=== PATIENT | female | born 1980 | race Caucasian/White ===

== ENCOUNTER 2016-03-13 12:02 | Emergency (ER) | payer OTHER ==
[~2016-03-13 12:02] MED LIST: AFRI0.65; AUGM875T27 PO; BACIDCA PO; CALC500T36 PO; CELL500T PO; Calcium PO; FLAG500T PO; HYDROXYCHLOROQUINE PO; KEPP1000 PO; KEPPRA PO; MICO2CRE39 PV; MULTCAP PO; MULTTAB4 PO; PERC2.5T PO; PERC5TAB6 PO; PERC7.5T12 PO; POTA1TAB14 PO; PRED10TA PO; PRED1TA PO; PRED5TA PO; TEGR200T PO; VICOBULK PO; [UNRECOGNIZED DRUG - CODE] PO
--- NOTE | 2016-03-13 13:53 | EDDOCDS ---
Nurse's Notes [facility] Name: Carina Mendez Age: 35 yrs Sex: Female : 1980 Arrival Date: 03/13/2016 Time: 12:02 Bed Triage 1 Private MD: [facility] Diagnosis: Acute upper respiratory infections of multiple and unspecified sites;Acute bronchitis Presentation: 03/13 12:06 Presenting complaint: Patient states: nasal congestion with post nasal drainage and kr3 chest congestion. symptoms for 2 weeks following Benlysta treatment. Had pleurisy prior to this episode and was treated with high dose steroid. Adult Sepsis Screening: The patient does not have new or worsening altered mentation. Patient's respiratory rate is less than 22. Systolic blood pressure is greater than 100. Patient has a qSOFA score of 0- Negative Sepsis Screen. Suicide/Homicide risk assessment- the patient denies having any suicidal and/or homicidal ideations and does not present with any other emotional, behavioral or mental health complaints. Status: Patient is not a director of professional services or dependent. Transition of care: patient was not received from another setting of care. 12:06 Method Of Arrival: Walkin/Carried/Asstd kr3 12:06 Acuity: RAMBO Level 3 kr3 12:11 Red Flag criteria, patient assessed and is suitable to finish the RCE Process. kr3 Triage Assessment: 12:10 General: Appears in no apparent distress, comfortable, Behavior is cooperative. Pain: kr3 Location: throat and upper chest Pain currently is 2 out of 10 on a pain scale. Pt Declines HIV testing. Neurological: Level of Consciousness is awake, alert. EENT: Reports nasal congestion nasal discharge voice changes thru out day. Respiratory: Respiratory effort is even, unlabored, Reports cough that is persistent. Derm: Skin is normal. 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 Benlysta 400 mg intravenous solr every 4 wks 2. gabapentin 100 mg Oral cap daily PRN (Last dose: Unknown) 3. methylprednisolone 4 mg Oral tab 1 tab twice a day (Last dose: 03/13/2016) 4. multivitamin Oral tab 1 tab daily (Last dose: 03/13/2016) - PMHx: Blood Disorder; Factor V Leiden; Lupus; Seizures; - PSHx: Lumpectomy- Left; Lumpectomy- Right; Hysterectomy; - Social history: Smoking status: Patient states former smoker of tobacco. No barriers to communication noted, The patient speaks fluent Georgian, Speaks appropriately for age. - Family history: Not pertinent. - : The pt / caregiver states he / she is not on anticoagulants. Home medication list is obtained from the patient. - Exposure Risk Screening:: None identified. Screenin:51 Screening information is obtained from the patient. Fall risk: No risks identified. dsf Assistance ADL's: requires no assistance with activities of daily living. Abuse/DV Screen: The patient / caregiver reports he/she is: not in a situation that causes fear, pain or injury. Nutritional screening: No deficits noted. Advance Directives: Currently, there is no health care proxy. home support is adequate. Assessment: 13:51 Adult Sepsis Screening: The patient does not have new or worsening altered mentation. dsf Patient's respiratory rate is less than 22. Systolic blood pressure is greater than 100. Patient has a qSOFA score of 0- Negative Sepsis Screen. General: Appears in no apparent distress, Behavior is appropriate for age, cooperative. Pain: Denies pain. Neurological: Level of Consciousness is awake, alert. Cardiovascular: Capillary refill < 3 seconds. Respiratory: Airway is patent Respiratory effort is even, unlabored, Respiratory pattern is regular, symmetrical, Breath sounds are clear bilaterally. Derm: Skin is pink, warm & dry. Vital Signs: 12:04 BP 120 / 77; Pulse 80; Resp 18; Temp 99.2(O); Pulse Ox 100% on R/A; Weight 63.5 kg; dem1 Height 5 ft. 6 in. (167.64 cm); Pain 7/10; 13:42 BP 117 / 86; Pulse 95; Resp 18; Temp 99.6; Pulse Ox 99% on R/A; Pain 0/10; rn1 12:04 Body Mass Index 22.60 (63.50 kg, 167.64 cm) dem1 Vitals: 12:04 Log In Time: March 13, 2016 at 12:01. RN notified that patient meets Red Flag dem1 criteria. ED Course: 12:03 Patient visited by Julissa España. dem1 12:03 Patient moved to Waiting dem1 12:[address] [facility] [place] [place], Education [facility] is Private Physician. dem1 12:06 Patient moved to Pre RCE dem1 12:09 Triage Initiated kr3 12:59 Patient moved to Triage 1 dsf 13:38 Rito Lake [facility] cc10 13:38 Stefanie Bustamante MD is Attending Physician. cc10 13:42 Patient visited by Rito Lake PA-C. cc10 13:42 Patient visited by Rito Lake PA-C. cc10 13:[address] [facility] [place] [place], [facility] is Referral Physician. cc10 13:51 The patient / caregiver is instructed regarding the plan of care and ED course. dsf 13:51 No IV's were initiated during this patient's visit. No procedures done that require dsf assistance. Order Results: There are currently no results for this order. Outcome: 13:48 Discharge ordered by Provider. cc10 13:51 Discharge Assessment: Patient awake, alert and oriented x 3. No cognitive and/or dsf functional deficits noted. Patient verbalized understanding of disposition instructions. patient administered narcotics - no. The following High Risk Discharge criteria are identified: None. Discharged to home ambulatory. Condition: stable. Discharge instructions given to patient, Instructed on discharge instructions, follow up and referral plans. medication usage, Demonstrated understanding of instructions, medications, Pt was receptive of discharge instructions/ teaching. Prescriptions given X 2. No special radiology studies were completed. Property sent home with patient. 13:53 Patient left the ED. dsf Signatures: Rossy Dotson RN RN kr3 Janene Troncoso RN RN dsf Julissa España dem1 Rito Lake PA-C PA-C cc10 Elvis Allen rn1 [facility]
--- NOTE | 2016-03-13 13:53 | EDDOCDS ---
Physician Documentation [facility] Name: Carina Mendez Age: 35 yrs Sex: Female : 1980 Arrival Date: 03/13/2016 Time: 12:02 Bed Triage 1 Private [facility]: [facility] Disposition: 03/13/16 13:48 Discharged to Home/Self Care. Impression: Acute upper respiratory infections of multiple and unspecified sites, Acute bronchitis. - Condition is Stable. - Discharge Instructions: Acute Bronchitis, Upper Respiratory Infection, Adult. - Prescriptions for Prednisone 20 mg Oral Tablet - take 1 tablet by ORAL route once daily for 5 days; 5 tablet. Zithromax Z- Jayme 250 mg Oral Tablet - take 1 tablet by ORAL route as directed for 5 days Day 1- take two tablets once. Day 2, 3, 4 , 5 take one tablet once daily.; 6 tablet. - Medication Reconciliation, Local Pharmacy Hours form. - Follow up: Emergency Department; When: As needed; Reason: Worsening of conditions. Follow [facility]: [facility]; When: Call to arrange an appointment; Reason: Wound/Symptom Recheck, Recheck today's complaints, Worsening of conditions, Continuance of care. - Problem is an ongoing problem. - Symptoms are unchanged. Historical: - Allergies: Aspirin (due to a blood disorder); Codeine Sulfate (Vomit); SULFA (SULFONAMIDES) (causes a lupus flare); - Home Meds: 1. Benlysta 400 mg intravenous solr every 4 wks 2. gabapentin 100 mg Oral cap daily PRN (Last dose: Unknown) 3. methylprednisolone 4 mg Oral tab 1 tab twice a day (Last dose: 03/13/2016) 4. multivitamin Oral tab 1 tab daily (Last dose: 03/13/2016) - PMHx: Blood Disorder; Factor V Leiden; Lupus; Seizures; - PSHx: Lumpectomy- Left; Lumpectomy- Right; Hysterectomy; - Social history: Smoking status: Patient states former smoker of tobacco. No barriers to communication noted, The patient speaks fluent Welsh, Speaks appropriately for age. - Family history: Not pertinent. - : The pt / caregiver states he / she is not on anticoagulants. Home medication list is obtained from the patient. - Exposure Risk Screening:: None identified. 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 6 in. (167.64 cm); Pain 7/10; 13:42 BP 117 / 86; Pulse 95; Resp 18; Temp 99.6; Pulse Ox 99% on R/A; Pain 0/10; rn1 12:04 Body Mass Index 22.60 (63.50 kg, 167.64 cm) dem1 Signatures: Rossy DotsonRN RN kr3 Janene Troncoso RN RN dsf Jaya, Rito, PAHuiC PA-C cc10 MTDD
--- NOTE | 2016-03-15 14:53 | EDDOCDS ---
Physician Documentation [facility] Name: Carina Mendez Age: 35 yrs Sex: Female : 1980 Arrival Date: 03/13/2016 Time: 12:02 Bed Triage 1 Private MD: [facility] Disposition: 03/13/16 13:48 Discharged to Home/Self Care. Impression: Acute upper respiratory infections of multiple and unspecified sites, Acute bronchitis. - Condition is Stable. - Discharge Instructions: Acute Bronchitis, Upper Respiratory Infection, Adult. - Prescriptions for Prednisone 20 mg Oral Tablet - take 1 tablet by ORAL route once daily for 5 days; 5 tablet. Zithromax Z- Jayme 250 mg Oral Tablet - take 1 tablet by ORAL route as directed for 5 days Day 1- take two tablets once. Day 2, 3, 4 , 5 take one tablet once daily.; 6 tablet. - Medication Reconciliation, Local Pharmacy Hours form. - Follow up: Emergency Department; When: As needed; Reason: Worsening of conditions. [facility]: [facility]; When: Call to arrange an appointment; Reason: Wound/Symptom Recheck, Recheck today's complaints, Worsening of conditions, Continuance of care. - Problem is an ongoing problem. - Symptoms are unchanged. Historical: - Allergies: Aspirin (due to a blood disorder); Codeine Sulfate (Vomit); SULFA (SULFONAMIDES) (causes a lupus flare); - Home Meds: 1. Benlysta 400 mg intravenous solr every 4 wks 2. gabapentin 100 mg Oral cap daily PRN (Last dose: Unknown) 3. methylprednisolone 4 mg Oral tab 1 tab twice a day (Last dose: 03/13/2016) 4. multivitamin Oral tab 1 tab daily (Last dose: 03/13/2016) - PMHx: Blood Disorder; Factor V Leiden; Lupus; Seizures; - PSHx: Lumpectomy- Left; Lumpectomy- Right; Hysterectomy; - Social history: Smoking status: Patient states former smoker of tobacco. No barriers to communication noted, The patient speaks fluent Armenian, Speaks appropriately for age. - Family history: Not pertinent. - : The pt / caregiver states he / she is not on anticoagulants. Home medication list is obtained from the patient. - Exposure Risk Screening:: None identified. 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 6 in. (167.64 cm); Pain 7/10; 13:42 BP 117 / 86; Pulse 95; Resp 18; Temp 99.6; Pulse Ox 99% on R/A; Pain 0/10; rn1 12:04 Body Mass Index 22.60 (63.50 kg, 167.64 cm) dem1 MDM: 03/14 08:06 T-Sheet-- Draft Copy was scanned into [employer] and attached to record. gb Signatures: Danita Funes, Rossy Colunga,RN RN kr3 Janene Troncoso RN RN figueroaf Rito Lake, PA-C PA-C cc10 The chart was reviewed and I authenticate all verbal orders and agree with the evaluation and treatment provided.Attachments: 08:06 T-Sheet-- Draft Copy gb Chart Complete MTDD
--- NOTE | 2016-03-15 14:53 | EDDOCDS ---
Nurse's Notes [facility] Name: Carina Mendez Age: 35 yrs Sex: Female : 1980 Arrival Date: 03/13/2016 Time: 12:02 Bed Triage 1 [facility]: [facility] Diagnosis: Acute upper respiratory infections of multiple and unspecified sites;Acute bronchitis Presentation: 03/13 12:06 Presenting complaint: Patient states: nasal congestion with post nasal drainage and kr3 chest congestion. symptoms for 2 weeks following Benlysta treatment. Had pleurisy prior to this episode and was treated with high dose steroid. Adult Sepsis Screening: The patient does not have new or worsening altered mentation. Patient's respiratory rate is less than 22. Systolic blood pressure is greater than 100. Patient has a qSOFA score of 0- Negative Sepsis Screen. Suicide/Homicide risk assessment- the patient denies having any suicidal and/or homicidal ideations and does not present with any other emotional, behavioral or mental health complaints. Status: Patient is not a coordinator volunteer services or dependent. Transition of care: patient was not received from another setting of care. 12:06 Method Of Arrival: Walkin/Carried/Asstd kr3 12:06 Acuity: RAMBO Level 3 kr3 12:11 Red Flag criteria, patient assessed and is suitable to finish the RCE Process. kr3 Triage Assessment: 12:10 General: Appears in no apparent distress, comfortable, Behavior is cooperative. Pain: kr3 Location: throat and upper chest Pain currently is 2 out of 10 on a pain scale. Pt Declines HIV testing. Neurological: Level of Consciousness is awake, alert. EENT: Reports nasal congestion nasal discharge voice changes thru out day. Respiratory: Respiratory effort is even, unlabored, Reports cough that is persistent. Derm: Skin is normal. 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 Benlysta 400 mg intravenous solr every 4 wks 2. gabapentin 100 mg Oral cap daily PRN (Last dose: Unknown) 3. methylprednisolone 4 mg Oral tab 1 tab twice a day (Last dose: 03/13/2016) 4. multivitamin Oral tab 1 tab daily (Last dose: 03/13/2016) - PMHx: Blood Disorder; Factor V Leiden; Lupus; Seizures; - PSHx: Lumpectomy- Left; Lumpectomy- Right; Hysterectomy; - Social history: Smoking status: Patient states former smoker of tobacco. No barriers to communication noted, The patient speaks fluent Yoruba, Speaks appropriately for age. - Family history: Not pertinent. - : The pt / caregiver states he / she is not on anticoagulants. Home medication list is obtained from the patient. - Exposure Risk Screening:: None identified. Screenin:51 Screening information is obtained from the patient. Fall risk: No risks identified. dsf Assistance ADL's: requires no assistance with activities of daily living. Abuse/DV Screen: The patient / caregiver reports he/she is: not in a situation that causes fear, pain or injury. Nutritional screening: No deficits noted. Advance Directives: Currently, there is no health care proxy. home support is adequate. Assessment: 13:51 Adult Sepsis Screening: The patient does not have new or worsening altered mentation. dsf Patient's respiratory rate is less than 22. Systolic blood pressure is greater than 100. Patient has a qSOFA score of 0- Negative Sepsis Screen. General: Appears in no apparent distress, Behavior is appropriate for age, cooperative. Pain: Denies pain. Neurological: Level of Consciousness is awake, alert. Cardiovascular: Capillary refill < 3 seconds. Respiratory: Airway is patent Respiratory effort is even, unlabored, Respiratory pattern is regular, symmetrical, Breath sounds are clear bilaterally. Derm: Skin is pink, warm & dry. Vital Signs: 12:04 BP 120 / 77; Pulse 80; Resp 18; Temp 99.2(O); Pulse Ox 100% on R/A; Weight 63.5 kg; dem1 Height 5 ft. 6 in. (167.64 cm); Pain 7/10; 13:42 BP 117 / 86; Pulse 95; Resp 18; Temp 99.6; Pulse Ox 99% on R/A; Pain 0/10; rn1 12:04 Body Mass Index 22.60 (63.50 kg, 167.64 cm) dem1 Vitals: 12:04 Log In Time: March 13, 2016 at 12:01. RN notified that patient meets Red Flag dem1 criteria. ED Course: 12:03 Patient visited by Julissa España. dem1 12:03 Patient moved to Waiting dem1 12:04 [facility], Education [facility] is Private Physician. dem1 12:06 Patient moved to Pre RCE dem1 12:09 Triage Initiated kr3 12:59 Patient moved to Triage 1 dsf 13:38 Rito Lake [facility]C [facility] cc[facility] 13:38 Stefanie Bustamante MD is Attending Physician. cc10 13:42 Patient visited by Rito Lake PA-C. cc10 13:42 Patient visited by Rito Lake PA-C. cc10 13:48 [facility] is Referral Physician. cc10 13:51 The patient / caregiver is instructed regarding the plan of care and ED course. dsf 13:51 No IV's were initiated during this patient's visit. No procedures done that require dsf assistance. 03/14 08:06 T-Sheet-- Draft Copy was scanned into [employer] and attached to record. gb Order Results: There are currently no results for this order. Outcome: 03/13 13:48 Discharge ordered by Provider. cc10 13:51 Discharge Assessment: Patient awake, alert and oriented x 3. No cognitive and/or dsf functional deficits noted. Patient verbalized understanding of disposition instructions. patient administered narcotics - no. The following High Risk Discharge criteria are identified: None. Discharged to home ambulatory. Condition: stable. Discharge instructions given to patient, Instructed on discharge instructions, follow up and referral plans. medication usage, Demonstrated understanding of instructions, medications, Pt was receptive of discharge instructions/ teaching. Prescriptions given X 2. No special radiology studies were completed. Property sent home with patient. 13:53 Patient left the ED. dsf Signatures: Danita Funes, Reg Reg Rossy Dobbins,RN RN kr3 Janene TroncosoRN RN dsf Julissa España dem1 Rito Lake PA-C PA-C cc10 Newman, Robert rn1 Chart Complete MTDD
--- NOTE | 2016-03-15 14:53 | EDDOCDS ---
Physician Documentation [facility] Name: Carina Mendez Age: 35 yrs Sex: Female : 1980 Arrival Date: 03/13/2016 Time: 12:02 Bed Triage 1 Private [facility]: [facility] Disposition: 03/13/16 13:48 Discharged to Home/Self Care. Impression: Acute upper respiratory infections of multiple and unspecified sites, Acute bronchitis. - Condition is Stable. - Discharge Instructions: Acute Bronchitis, Upper Respiratory Infection, Adult. - Prescriptions for Prednisone 20 mg Oral Tablet - take 1 tablet by ORAL route once daily for 5 days; 5 tablet. Zithromax Z- Jayme 250 mg Oral Tablet - take 1 tablet by ORAL route as directed for 5 days Day 1- take two tablets once. Day 2, 3, 4 , 5 take one tablet once daily.; 6 tablet. - Medication Reconciliation, Local Pharmacy Hours form. - Follow up: Emergency Department; When: As needed; Reason: Worsening of conditions. Follow [facility]: [facility]; When: Call to arrange an appointment; Reason: Wound/Symptom Recheck, Recheck today's complaints, Worsening of conditions, Continuance of care. - Problem is an ongoing problem. - Symptoms are unchanged. Historical: - Allergies: Aspirin (due to a blood disorder); Codeine Sulfate (Vomit); SULFA (SULFONAMIDES) (causes a lupus flare); - Home Meds: 1. Benlysta 400 mg intravenous solr every 4 wks 2. gabapentin 100 mg Oral cap daily PRN (Last dose: Unknown) 3. methylprednisolone 4 mg Oral tab 1 tab twice a day (Last dose: 03/13/2016) 4. multivitamin Oral tab 1 tab daily (Last dose: 03/13/2016) - PMHx: Blood Disorder; Factor V Leiden; Lupus; Seizures; - PSHx: Lumpectomy- Left; Lumpectomy- Right; Hysterectomy; - Social history: Smoking status: Patient states former smoker of tobacco. No barriers to communication noted, The patient speaks fluent Macedonian, Speaks appropriately for age. - Family history: Not pertinent. - : The pt / caregiver states he / she is not on anticoagulants. Home medication list is obtained from the patient. - Exposure Risk Screening:: None identified. 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 6 in. (167.64 cm); Pain 7/10; 13:42 BP 117 / 86; Pulse 95; Resp 18; Temp 99.6; Pulse Ox 99% on R/A; Pain 0/10; rn1 12:04 Body Mass Index 22.60 (63.50 kg, 167.64 cm) dem1 MDM: 03/14 08:06 T-Sheet-- Draft Copy was scanned into [employer] and attached to record. gb Signatures: Danita Funes, Rossy Colunga,RN RN kr3 Janene Troncoso RN RN figueroaf Rito Lake, PA-C PA-C cc10 The chart was reviewed and I authenticate all verbal orders and agree with the evaluation and treatment provided.Attachments: 08:06 T-Sheet-- Draft Copy gb Chart Complete MTDD
== END 2016-03-13 13:53 | disposition home or self-care (01) ==
LOC: M ED 12:02
DX: J20.9 Acute bronchitis, unspecified (principal); J06.9 Acute upper respiratory infection, unspecified; M32.10 Systemic lupus erythematosus, organ or system involvement unspecified; R56.9 Unspecified convulsions; D68.59 Other primary thrombophilia; Z87.891 Personal history of nicotine dependence; Z79.899 Other long term (current) drug therapy; Z88.2 Allergy status to sulfonamides; Z88.5 Allergy status to narcotic agent; Z88.6 Allergy status to analgesic agent

== ENCOUNTER → 2016-04-25 | Outpatient (CLI) | payer OTHER ==
--- NOTE | 2016-04-25 15:03 | REP ---
BILATERAL DIAGNOSTIC MAMMOGRAM, LEFT BREAST ULTRASOUND: FAMILY HISTORY: Breast cancer in maternal aunt and maternal grandmother. Bilateral MLO and CC views are performed in this patient with right breast pain and a palpable abnormality inferiorly in the left breast. The area of the palpable abnormality on the left is marked with a triangular skin marker. Additional spot compression views were obtained. Comparison made with prior study of 04/20/2014 as well as other prior exams. Breast parenchyma is heterogeneously dense which limits the sensitivity of the mammogram. No mass is seen mammographically and there is no evidence of architectural distortion. No clustered microcalcifications are seen. Real-time sonographic evaluation of the left breast is performed inferiorly. There is dense fibroglandular tissue without sonographic evidence of a cystic or solid mass. IMPRESSION: BI-RADS/ACR category 2 mammogram. Benign finding(s). Routine annual screening mammography (for women over age 40). No evidence of mass or clustered microcalcifications. There is no mammogram or sonographic evidence of a mass at the site of the reported palpable abnormality inferiorly in the left breast. A negative mammogram and ultrasound should not deter biopsy if there is a clinically suspicious palpable mass present. Clinical correlation and followup is recommended. Given the patient's dense breast parenchyma, family history and palpable abnormality I would recommend MRI of the breasts. This mammogram was interpreted with the aid of an FDA-approved computer-aided detection system. The patient states she/he had a clinical breast exam in 02/2016. The patient letter being requested is M2. Signed by Robbie Farris MD 04/25/2016 06:32 P
== END ==
LOC: M RAD 12:50
PROVIDERS: ATTEND Family Medicine
DX: N63 Unspecified lump in breast (principal)
CPT/HCPCS: 76642; G0204

== ENCOUNTER → 2016-04-28 | Outpatient (CLI) | payer OTHER ==
--- NOTE | 2016-04-29 09:27 | DEXA ---
AP SPINE L1 - L4 1.244 0.4 0.4 LT FEMUR TOTAL 0.933 0.6 -0.4 RT FEMUR TOTAL 0.966 -0.3 -0.1 TOTAL BODY TOTAL OTHER DUAL FEMUR FRAX* ASSESSMENT Risk factors: To young for fractures. 10 year probability of fracture Major osteoporotic fracture % Hip fracture % COMMENTS: Normal bone densitometry of the spine. Normal bone densitometry of the left hip. Normal bone densitometry of the right hip. The density of the spine has decreased 3.1% since 06/2013. The density of the left hip has decreased 5.9% since 06/2013. The density of the right hip has decreased 1.1% since 06/2013. The decreased density of the spine does represent a significant change since . The decreased density of the left hip does represent a significant change. The decreased density of the right hip does not represent a significant change. FOLLOW-UP: Recommendation for the next bone density exam: 5 years. STACIE
== END ==
LOC: M WHC 10:54
PROVIDERS: ATTEND Family Medicine
DX: Z79.52 Long term (current) use of systemic steroids (principal)

== ENCOUNTER → 2016-05-05 | Outpatient (REF) | payer OTHER ==
[2016-05-05 12:31] LABS: ALBUMIN 3.8 GM/DL (3.2-5.2); ALBUMIN/GLOBULIN RATIO 1.36 (1.00-1.93); ALKALINE PHOSPHATASE 51 U/L (45-117); ALT/SGPT 13 U/L (12-78); ANION GAP 8 MEQ/L (8-16); AST/SGOT 10 U/L (15-37); BILIRUBIN,TOTAL 0.4 MG/DL (0.2-1.0); BLOOD UREA NITROGEN 9 MG/DL (7-18); CALCIUM LEVEL 8.4 MG/DL (8.5-10.1); CARBON DIOXIDE LEVEL 28 MEQ/L (21-32); CHLORIDE LEVEL 106 MEQ/L (98-107); CREATININE FOR GFR 0.61 MG/DL (0.55-1.02); GLOMERULAR FILTRATION RATE > 60.0 (>60); GLUCOSE, FASTING 77 MG/DL (70-105); MAGNESIUM LEVEL 2.2 MG/DL (1.8-2.4); POTASSIUM SERUM 3.9 MEQ/L (3.5-5.1); SODIUM LEVEL 142 MEQ/L (136-145); TOTAL PROTEIN 6.6 GM/DL (6.4-8.2)
== END ==
LOC: M SFHCPLAZ 09:31
PROVIDERS: ATTEND Family Medicine
DX: E87.6 Hypokalemia (principal); R63.1 Polydipsia; E83.42 Hypomagnesemia

== ENCOUNTER → 2016-05-07 | Outpatient (REF) | payer OTHER ==
[2016-05-07 17:55] LABS: BASO # 0.1 K/mm3 (0.0-0.2); BASO % 1.1 % (0.0-1.0); EOS # 0.1 K/mm3 (0.0-0.50); EOS % 1.6 % (0.0-3.0); LARGE UNSTAINED CELL % 0.8 % (0.0-4.0); LYMPH # 1.4 K/mm3 (1.5-4.5); LYMPH % 25.3 % (24.0-44.0); MEAN CORPUSCULAR HEMOGLOBIN 30.4 pg (27.0-33.0); MEAN CORPUSCULAR HGB CONC 32.6 g/dl (32.0-36.5); MEAN CORPUSCULAR VOLUME 93.1 fl (80.0-96.0); MONO # 0.3 K/mm3 (0.0-0.8); NEUTROPHILS # 3.5 K/mm3 (1.8-7.7); NEUTROPHILS % 65.3 % (36.0-66.0); PLATELET COUNT, AUTOMATED 219 k/mm3 (150-450); RED CELL DISTRIBUTION WIDTH 12.7 % (11.5-14.5); WHITE BLOOD COUNT 5.4 K/mm3 (4.0-10.0)
[2016-05-07 18:09] LABS: BLOOD UREA NITROGEN 6 MG/DL (7-18); CREATININE FOR GFR 0.67 MG/DL (0.55-1.02); GLOMERULAR FILTRATION RATE > 60.0 (>60)
== END ==
LOC: M LAB REF 17:20
PROVIDERS: ATTEND Physician Assistant
DX: N23 Unspecified renal colic (principal)

== ENCOUNTER → 2016-07-23 | Outpatient (CLI) | payer OTHER ==
[2016-07-23 16:02] LABS: BASO # 0.1 K/mm3 (0.0-0.2); BASO % 1.1 % (0.0-1.0); EOS % 0.7 % (0.0-3.0); LYMPH # 1.8 K/mm3 (1.5-4.5); LYMPH % 27.7 % (24.0-44.0); MEAN CORPUSCULAR HEMOGLOBIN 30.6 pg (27.0-33.0); MEAN CORPUSCULAR HGB CONC 32.8 g/dl (32.0-36.5); MEAN CORPUSCULAR VOLUME 93.4 fl (80.0-96.0); MONO # 0.5 K/mm3 (0.0-0.8); MONO % 7.3 % (0.0-5.0); NEUTROPHILS # 3.9 K/mm3 (1.8-7.7); NEUTROPHILS % 61.4 % (36.0-66.0); RED CELL DISTRIBUTION WIDTH 12.3 % (11.5-14.5); WHITE BLOOD COUNT 6.4 K/mm3 (4.0-10.0)
[2016-07-23 16:24] LABS: ALBUMIN 3.6 GM/DL (3.2-5.2); ALT/SGPT 20 U/L (12-78); AST/SGOT 13 U/L (15-37); CREATININE FOR GFR 0.64 MG/DL (0.55-1.02); GLOMERULAR FILTRATION RATE > 60.0 (>60)
== END ==
LOC: M LAB 15:19
PROVIDERS: ATTEND Internal Medicine Rheumatology
DX: Z51.81 Encounter for therapeutic drug level monitoring (principal); Z79.899 Other long term (current) drug therapy

== ENCOUNTER 2016-07-31 21:06 | Emergency (ER) | payer OTHER ==
[~2016-07-31] VITALS: Ht 167.6 cm; Wt 65.8 kg
[2016-07-31] MEDS ORDERED: ARAV1TAB PO (21:22)
[2016-08-01 00:47] VITALS: BP 115/76
[2016-08-01] MEDS ORDERED: HYDR-3713 PO (00:52)
[2016-08-01] MEDS ORDERED: AMOX500C PO (00:52)
[2016-08-01] MEDS ORDERED: AMOXICILLIN 500 MG CAP PO ONE (01:00)
[2016-08-01] MEDS ORDERED: NORCO 5/325MG TABLET (BULK FOR ED) PO ONE (01:00)
== END 2016-08-01 00:59 | disposition home or self-care (01) ==
LOC: M ED 21:06
DX: K08.89 Other specified disorders of teeth and supporting structures (principal); R51 Headache; S02.5XXB Fracture of tooth (traumatic), initial encounter for open fracture; X58.XXXA Exposure to other specified factors, initial encounter; Y92.89 Other specified places as the place of occurrence of the external cause; Y93.89 Activity, other specified; Y99.8 Other external cause status; F17.210 Nicotine dependence, cigarettes, uncomplicated; Z79.52 Long term (current) use of systemic steroids; Z79.899 Other long term (current) drug therapy; Z88.8 Allergy status to other drugs, medicaments and biological substances; Z88.5 Allergy status to narcotic agent; Z88.2 Allergy status to sulfonamides; Z91.018 Allergy to other foods

== ENCOUNTER 2016-08-31 15:11 | Emergency (ER) | payer OTHER ==
[~2016-08-31] VITALS: Ht 167.6 cm; Wt 66.5 kg
[~2016-08-31 15:11] MED LIST changes: +AMOX500C PO; +ARAV1TAB PO; +HYDR-3713 PO; +PERC5TAB12 PO; -PERC5TAB6 PO
[2016-08-31 15:12] VITALS: BP 128/92
[2016-08-31] MEDS ORDERED: CLEO300C2 PO ×2 (15:45→16:03)
== END 2016-08-31 15:54 | disposition home or self-care (01) ==
LOC: M ED 15:39
DX: K02.9 Dental caries, unspecified (principal); S02.5XXA Fracture of tooth (traumatic), initial encounter for closed fracture; X58.XXXA Exposure to other specified factors, initial encounter; Y92.9 Unspecified place or not applicable; Y93.9 Activity, unspecified; Y99.9 Unspecified external cause status; Z87.891 Personal history of nicotine dependence; R56.9 Unspecified convulsions; M32.9 Systemic lupus erythematosus, unspecified; I51.89 Other ill-defined heart diseases; N94.9 Unspecified condition associated with female genital organs and menstrual cycle; E05.90 Thyrotoxicosis, unspecified without thyrotoxic crisis or storm; E06.3 Autoimmune thyroiditis; D68.59 Other primary thrombophilia; D69.1 Qualitative platelet defects; Z86.14 Personal history of Methicillin resistant Staphylococcus aureus infection; Z79.899 Other long term (current) drug therapy; Z88.6 Allergy status to analgesic agent; Z88.5 Allergy status to narcotic agent; Z88.2 Allergy status to sulfonamides; Z91.018 Allergy to other foods

== ENCOUNTER 2016-09-02 11:03 | Emergency (ER) | payer OTHER ==
[~2016-09-02] VITALS: Ht 167.6 cm; Wt 65.5 kg
[~2016-09-02 11:03] MED LIST changes: +CLEO300C2 PO
[2016-09-02] MEDS ORDERED: TYLE325T5 PO (11:14)
[2016-09-02] MEDS ORDERED: AMPICILLIN SOD/SULBACTAM SOD 3 GM in D5W MINI-BAG PLUS 100 ML IV ONE (11:45)
[2016-09-02 12:18] LABS: BASO # 0.1 K/mm3 (0.0-0.2); BASO % 1.2 % (0.0-1.0); EOS # 0.1 K/mm3 (0.0-0.50); EOS % 1.2 % (0.0-3.0); LARGE UNSTAINED CELL # 0.1 K/mm3 (0.0-0.4); LARGE UNSTAINED CELL % 1.4 % (0.0-4.0); LYMPH # 1.5 K/mm3 (1.5-4.5); LYMPH % 31.9 % (24.0-44.0); MEAN CORPUSCULAR HEMOGLOBIN 30.7 pg (27.0-33.0); MEAN CORPUSCULAR HGB CONC 33.5 g/dl (32.0-36.5); MEAN CORPUSCULAR VOLUME 91.8 fl (80.0-96.0); MONO # 0.3 K/mm3 (0.0-0.8); MONO % 5.9 % (0.0-5.0); NEUTROPHILS # 2.7 K/mm3 (1.8-7.7); NEUTROPHILS % 58.5 % (36.0-66.0); PLATELET COUNT, AUTOMATED 202 k/mm3 (150-450); RED CELL DISTRIBUTION WIDTH 12.5 % (11.5-14.5); WHITE BLOOD COUNT 4.6 K/mm3 (4.0-10.0)
[2016-09-02 12:24] LABS: ANION GAP 6 MEQ/L (8-16); BLOOD UREA NITROGEN 8 MG/DL (7-18); CALCIUM LEVEL 9.9 MG/DL (8.5-10.1); CARBON DIOXIDE LEVEL 30 MEQ/L (21-32); CHLORIDE LEVEL 103 MEQ/L (98-107); CREATININE FOR GFR 0.74 MG/DL (0.55-1.02); GLOMERULAR FILTRATION RATE > 60.0 (>60); GLUCOSE, FASTING 87 MG/DL (70-105); POTASSIUM SERUM 3.8 MEQ/L (3.5-5.1); SODIUM LEVEL 139 MEQ/L (136-145)
[2016-09-02] MEDS ORDERED: ISOVUE-370 76% 100ML VIAL (Q9967) As Ordered ONE (12:29)
[2016-09-02 12:41] LABS: ERYTHROCYTE SEDIMENTATION RATE 8 mm/hr (0-20)
[2016-09-02 12:54] VITALS: BP 117/80
--- NOTE | 2016-09-02 12:57 | REP ---
Clinical: Right facial swelling. Evaluate for abscess. Technique: Axial contrast enhanced images from the skull base to the thoracic inlet using 100 ml Isovue 370 intravenous contrast material with coronal and sagittal re-formations. Findings: Subcutaneous tissues and underlying soft tissues and musculoskeletal structures throughout the visualized face and neck appear normal, symmetric and without significant inflammatory stranding, mass effect, fluid collection or abscess. No mass lesion appreciated. No significant adenopathy noted. Parapharyngeal and retropharyngeal soft tissues are symmetric and normal. The airway remains patent, midline and without associated mass effect. The oropharynx appears grossly unremarkable although evaluation is somewhat limited due to metallic streak artifact from dental amalgam. The parotid and glandular tissues are symmetric and normal. The osseous structures appear intact. The sinuses are well aerated and clear. The temporomandibular joints are symmetric and normal. The bilateral orbits including globes and intraconal contents are symmetric and normal. Impression: 1. Essentially normal examination. 2. No evidence for acute inflammatory process, mass lesion, drainable collection or abscess. No adenopathy. Airway remains patent and midline. Retropharyngeal space normal. Signed by James Topete MD 09/02/2016 12:47 P
== END 2016-09-02 12:58 | disposition home or self-care (01) ==
LOC: M ED 11:23
DX: K02.9 Dental caries, unspecified (principal); D68.2 Hereditary deficiency of other clotting factors; R56.9 Unspecified convulsions; E03.9 Hypothyroidism, unspecified; M32.9 Systemic lupus erythematosus, unspecified; Z87.891 Personal history of nicotine dependence; Z88.4 Allergy status to anesthetic agent; Z88.5 Allergy status to narcotic agent; Z88.2 Allergy status to sulfonamides; Z91.018 Allergy to other foods

== ENCOUNTER → 2016-09-28 | Outpatient (REF) | payer OTHER ==
[~2016-09-28] MED LIST changes: +BACITAB PO; +FIRS1SOL3 PO; +GABA-279 PO; +METH4TAB28 PO; +TYLE325T5 PO; +VANC25SOL PO; +VITMTA PO; +[UNRECOGNIZED DRUG - OTHER] PO
== END ==
LOC: M LAB REF 09:58
PROVIDERS: ATTEND Physician Assistant
DX: R19.7 Diarrhea, unspecified (principal)

== ENCOUNTER 2016-09-29 11:47 | Emergency (ER) | payer OTHER ==
[~2016-09-29] VITALS: Ht 167.6 cm; Wt 64.2 kg
[~2016-09-29 11:47] MED LIST changes: -BACITAB PO; -FIRS1SOL3 PO; -GABA-279 PO; -METH4TAB28 PO; -VANC25SOL PO; -VITMTA PO; -[UNRECOGNIZED DRUG - OTHER] PO
[2016-09-29] MEDS ORDERED: ONDANSETRON 4MG/2ML VIAL (J2405) IV ONE (13:45)
[2016-09-29] MEDS ORDERED: NS 1,000 ML IV ONE (13:45)
[2016-09-29 14:25] LABS: BASO % 1.2 % (0.0-1.0); EOS % 0.7 % (0.0-3.0); LARGE UNSTAINED CELL # 0.1 K/mm3 (0.0-0.4); LARGE UNSTAINED CELL % 2.9 % (0.0-4.0); LYMPH # 1.2 K/mm3 (1.5-4.5); LYMPH % 31.4 % (24.0-44.0); MEAN CORPUSCULAR HEMOGLOBIN 30.6 pg (27.0-33.0); MEAN CORPUSCULAR HGB CONC 33.5 g/dl (32.0-36.5); MEAN CORPUSCULAR VOLUME 91.5 fl (80.0-96.0); MONO # 0.3 K/mm3 (0.0-0.8); MONO % 8.7 % (0.0-5.0); NEUTROPHILS # 1.9 K/mm3 (1.8-7.7); NEUTROPHILS % 55.1 % (36.0-66.0); PLATELET COUNT, AUTOMATED 192 k/mm3 (150-450); RED CELL DISTRIBUTION WIDTH 12.6 % (11.5-14.5); WHITE BLOOD COUNT 3.4 K/mm3 (4.0-10.0)
[2016-09-29 14:37] LABS: ALBUMIN 3.9 GM/DL (3.2-5.2); ALBUMIN/GLOBULIN RATIO 1.15 (1.00-1.93); ALKALINE PHOSPHATASE 57 U/L (45-117); ALT/SGPT 19 U/L (12-78); AMYLASE 41 U/L (25-115); ANION GAP 6 MEQ/L (8-16); AST/SGOT 16 U/L (15-37); BILIRUBIN,DIRECT < 0.1 MG/DL (0.0-0.2); BILIRUBIN,TOTAL 0.4 MG/DL (0.2-1.0); BLOOD UREA NITROGEN 7 MG/DL (7-18); CALCIUM LEVEL 8.9 MG/DL (8.5-10.1); CARBON DIOXIDE LEVEL 28 MEQ/L (21-32); CHLORIDE LEVEL 106 MEQ/L (98-107); CREATININE FOR GFR 0.71 MG/DL (0.55-1.02); GLOMERULAR FILTRATION RATE > 60.0 (>60); GLUCOSE, FASTING 77 MG/DL (70-105); POTASSIUM SERUM 3.6 MEQ/L (3.5-5.1); SODIUM LEVEL 140 MEQ/L (136-145); TOTAL PROTEIN 7.3 GM/DL (6.4-8.2)
[2016-09-29] MEDS ORDERED: ACETAMINOPHEN 325 MG TAB PO ONE (15:00)
[2016-09-29 15:38] VITALS: BP 166/94
[2016-09-29] MEDS ORDERED: VANC25SOL PO ×2 (15:54→20:02)
[2016-09-29] MEDS ORDERED: VITMTA PO (20:01)
[2016-09-29] MEDS ORDERED: BACITAB PO (20:02)
[2016-09-29] MEDS ORDERED: GABA-279 PO (20:02)
[2016-09-30] MEDS ORDERED: FIRS1SOL3 PO (09:46)
== END 2016-09-29 16:45 | disposition home or self-care (01) ==
LOC: M ED 11:47
DX: A04.7 Enterocolitis due to Clostridium difficile (principal); E86.0 Dehydration; R19.7 Diarrhea, unspecified; Z86.19 Personal history of other infectious and parasitic diseases; E07.9 Disorder of thyroid, unspecified; Z86.14 Personal history of Methicillin resistant Staphylococcus aureus infection; M32.9 Systemic lupus erythematosus, unspecified; D68.59 Other primary thrombophilia; Z87.891 Personal history of nicotine dependence; Z79.899 Other long term (current) drug therapy; Z88.6 Allergy status to analgesic agent; Z88.5 Allergy status to narcotic agent; Z88.0 Allergy status to penicillin; Z91.018 Allergy to other foods
CPT/HCPCS: 36415; 80048; 80076; 81001; 82150; 83690; 85025; 87040; 87086; 96361; 96374; 99284; J2405

== ENCOUNTER 2016-09-29 18:35 | Inpatient (IN) | payer OTHER ==
[~2016-09-29] VITALS: Ht 167.6 cm; Wt 60.0 kg
[~2016-09-29 18:35] MED LIST changes: +VANC25SOL PO
[2016-09-29] MEDS ORDERED: ONDANSETRON 4MG/2ML VIAL (J2405) IV ONE (19:45)
[2016-09-29] MEDS ORDERED: NS 1,000 ML IV ONE (19:45)
[2016-09-29] MEDS ORDERED: VITMTA PO (20:01)
[2016-09-29] MEDS ORDERED: VANC25SOL PO (20:02)
[2016-09-29] MEDS ORDERED: GABA-279 PO (20:02)
[2016-09-29] MEDS ORDERED: BACITAB PO (20:02)
[2016-09-29] MEDS ORDERED: NS 1,000 ML IV SCH (20:27)
[2016-09-29] MEDS ORDERED: ONDANSETRON 4MG/2ML VIAL (J2405) IV PRN (20:30)
[2016-09-29 20:37] LABS: ANION GAP 4 MEQ/L (8-16); BLOOD UREA NITROGEN 6 MG/DL (7-18); CALCIUM LEVEL 8.8 MG/DL (8.5-10.1); CARBON DIOXIDE LEVEL 28 MEQ/L (21-32); CHLORIDE LEVEL 106 MEQ/L (98-107); CREATININE FOR GFR 0.74 MG/DL (0.55-1.02); GLOMERULAR FILTRATION RATE > 60.0 (>60); GLUCOSE, FASTING 106 MG/DL (70-105); POTASSIUM SERUM 3.6 MEQ/L (3.5-5.1); SODIUM LEVEL 138 MEQ/L (136-145)
[2016-09-29 20:38] LABS: BASO % 0.9 % (0.0-1.0); EOS % 0.4 % (0.0-3.0); LARGE UNSTAINED CELL # 0.1 K/mm3 (0.0-0.4); LARGE UNSTAINED CELL % 2.2 % (0.0-4.0); LYMPH # 1.4 K/mm3 (1.5-4.5); LYMPH % 27.7 % (24.0-44.0); MEAN CORPUSCULAR HEMOGLOBIN 30.8 pg (27.0-33.0); MEAN CORPUSCULAR HGB CONC 33.7 g/dl (32.0-36.5); MEAN CORPUSCULAR VOLUME 91.3 fl (80.0-96.0); MONO # 0.3 K/mm3 (0.0-0.8); MONO % 6.5 % (0.0-5.0); NEUTROPHILS % 62.2 % (36.0-66.0); PLATELET COUNT, AUTOMATED 183 k/mm3 (150-450); RED CELL DISTRIBUTION WIDTH 12.3 % (11.5-14.5); WHITE BLOOD COUNT 4.9 K/mm3 (4.0-10.0)
[2016-09-29] MEDS ORDERED: ENOXAPARIN 40 MG/0.4 ML SYRINGE (J1650) SC SCH (21:00)
[2016-09-29] MEDS ORDERED: GABAPENTIN 100 MG CAP PO PRN (21:45)
--- NOTE | 2016-09-29 21:46 | HPEPDOC ---
General Date of Admission Sep 29, 2016 at 20:27 Chief Complaint The patient is a 36-year-old female Presented to the ER at the direction of her PCP (Dr. Ríos) because she was unable to get antibiotics for her diarrhea. History of Present Illness Patient is a 36 year old female with a PMHx of SLE, Factor V Leiden mutation (Hx of R arm superficial thrombophlebitis), Complex partial seizures, Hx of C. diff colitis, and recent tooth infection (s/p root canal) who presented to ER after she was unable to acquire outpatient antibiotics. Patient has noted that she had a recent tooth infection who which she has taken antibiotics for. Amoxicillin x 2 round, Ampicillin IV x 1 round, Clindamycin x 2 rounds. She was attempting to get surgery but was delayed because of worsening tooth infection. She finally got the surgery in [place], but she experienced diarrhea during her last course of clindamycin. She was seen at an Urgent care center and a stool sample was taken that was positive for C. diff. She was called and advised to go to the ER today. Upon evaluation she was given a script for Vancomycin and discharged home. She was unable to fill the prescription because she required preauthorization. She called her PCP (Dr. Ríos) and she was advised to come back to the ER. She reports some dizziness, nausea and had some vomiting. 2-3 times without blood, just food and liquid. Her diarrhea has been going on for 1 week, watery stool and now progressed to mucous that is blood tinged. She reports a mild low grade fever of 99.9F yesterday and chills at home. She denies abdominal pain. No dysuria, shortness of breath, chest pain or palpitations. Home Medications Scheduled Lactobacillus Acidophilus (Bacid) 1 Tab Tab, 1 TAB PO DAILY, (Reported) Leflunomide (Arava) 10 Mg Tab, 10 MG PO DAILY, (Reported) MD ADVISED TO STOP FOR PREVIOUS INFECTION HASNT TAKEN FOR 2 WEEKS Multivitamins *[facility] STOCKED* (Thera M Plus *[facility] STOCKED*) 1 Tab Tab, 1 TAB PO DAILY, (Reported) Vancomycin HCl (Vancomycin HCl) 250 Mg/5 Ml Soln, 5 ML PO Q6H, (Reported) SENT TODAY NO PHARMACY HAD MD MADE HER GET ADMITTED Scheduled PRN Acetaminophen (Tylenol) 325 Mg Tab, 650 MG PO PRN PRN for pain, (Reported) Gabapentin (Gabapentin) 100 Mg Cap, 100 MG PO QHS PRN for PAIN, (Reported) Allergies Coded Allergies: Banana (Verified Allergy, Unknown, 09/29/16) Aspirin (Verified Adverse Reaction, Intermediate, BLEEDING DISORDER, ) Codeine (Verified Adverse Reaction, Intermediate, VOMITING SEVERLY, ) Sulfa Drugs (Verified Adverse Reaction, Intermediate, PT HAS LUPUS AVOIDS SULFAS, 09/29/16) Past Medical History Medical History SLE, Factor V Leiden mutation (Hx of R arm superficial thrombophlebitis), Complex partial seizures, Hx of C. diff colitis Surgical History Lumpectomy (2009 and 2006) left breast benign Hysterectomy (2006) Left ovary removal (2015) 2/2 scar tissue and pain Lumpectomy (2012) right breast benign Colonoscopy (2014) Laparoscopy x2 (2002) 2/2 endometriosis Family History - Mother with history of blood disorders, HTN, DM2 - Father with DM2, HTN and Skin CA Social History - Denies the use of alcohol or illicit drugs; Quit smoking 14 years ago; smoker of 12 years at 2.5 ppd - Denies recent travel or sick contacts - Lives with and children - Unemployed Review of Symptoms Other systems Constitutional: Positive weight loss (2 months of 15 lbs), Poor change in appetite, or recent trauma Eyes: No visual changes or eye pain Ears, Nose, Throat: Denies nose bleeds, or difficulty swallowing Cardiovascular: Denies chest pain, sweating, or orthopnea Respiratory: Denies cough, wheezing, or shortness of breath GI: Positive nausea, vomiting, and diarrhea, No abdominal pain or constipation : Denies pain with urination or frequency Musculoskeletal: Denies joint pain or swelling Neuro / Psych: Denies muscle weakness or sensory loss Skin: No skin rashes noted All other review of systems negative; otherwise stated in history of present illness Vital Signs - Vitals: BP 127/79, HR 78, RR 16, Sat 100%RA, Temp 98.2F - General: Lying in bed, No acute distress, Speaking in full sentences, AAOx3 - HEENT: NC, AT, PERRLA, EOMI - CVS: RRR, +S1S2 - Lungs: Fair air entry bilaterally, Clear to auscultation - Abdomen: Soft, Non-distended, Non-tender - Extremities: lower extremity edema, No calf tenderness - Neuro: No focal motor or sensory deficit - Skin: No visible rashes Laboratory Data Labs 24H Laboratory Tests 2 09/29/16 20:04: White Blood Count 4.9, Red Blood Count 3.93L, Hemoglobin 12.1, Hematocrit 35.9L , Mean Corpuscular Volume 91.3, Mean Corpuscular Hemoglobin 30.8, Mean Corpuscular Hemoglobin Concent 33.7, Red Cell Distribution Width 12.3, Platelet Count 183, Neutrophils (%) (Auto) 62.2, Lymphocytes (%) (Auto) 27.7, Monocytes ( %) (Auto) 6.5H, Eosinophils (%) (Auto) 0.4, Basophils (%) (Auto) 0.9, Neutrophils # (Auto) 3.0, Lymphocytes # (Auto) 1.4L, Monocytes # (Auto) 0.3, Eosinophils # (Auto) 0.0, Basophils # (Auto) 0.0, Large Unclassified Cells % 2.2 , Large Unclassified Cells # 0.1, Anion Gap 4L, Glomerular Filtration Rate > 60.0, Blood Urea Nitrogen 6L, Creatinine 0.74, Sodium Level 138, Potassium Level 3.6, Chloride Level 106, Carbon Dioxide Level 28, Calcium Level 8.8 CBC/BMP Laboratory Tests 09/29/16 20:04 Red Blood Count 3.93 L, Mean Corpuscular Volume 91.3, Mean Corpuscular Hemoglobin 30.8, Mean Corpuscular Hemoglobin Concent 33.7, Red Cell Distribution Width 12.3, Neutrophils (%) (Auto) 62.2, Lymphocytes (%) (Auto) 27.7, Monocytes (%) (Auto) 6.5 H, Eosinophils (%) (Auto) 0.4, Basophils (%) ( Auto) 0.9, Neutrophils # (Auto) 3.0, Lymphocytes # (Auto) 1.4 L, Monocytes # ( Auto) 0.3, Eosinophils # (Auto) 0.0, Basophils # (Auto) 0.0, Calcium Level 8.8 Plan / VTE VTE Prophylaxis Ordered?: Yes Plan Plan Diarrhea likely 2/2 C. diff colitis likely 2/2 antibiotic use 2/2 clindamycin - Presented with 1 week history of diarrhea - Found to have positive C. diff as outpatient; failure to acquire medications - Physical unrevealing - Labs without signs of dehydration - Will check orthostatic vital signs - Will confirm with C. diff PCR - Will start IV fluid hydration, Zofran and Vancomycin PO - Will start clear liquid diet SLE - Has been on alternating days of Prednisone; will continue (starting tomorrow AM) - Has been off Leflunamide Complex partial seizures - c/w Gabapentin Factor V Leiden mutation - Hx of R arm superficial thrombophlebitis Gastrointestinal prophylaxis - Will start Protonix DVT prophylaxis - Will start SCDs MARIAM GAO MD Sep 29, 2016 21:46
[2016-09-30] VITALS (7 sets, daily range): BP systolic 103–119; BP diastolic 59–73
[2016-09-30] MEDS: VANCOMYCIN ORAL SOL 250MG/5ML ORAL SYRINGE PO SCH ×5 (00:46→23:55)
[2016-09-30 07:51] LABS: BASO % 0.8 % (0.0-1.0); EOS % 1.2 % (0.0-3.0); LARGE UNSTAINED CELL # 0.1 K/mm3 (0.0-0.4); LARGE UNSTAINED CELL % 2.8 % (0.0-4.0); LYMPH # 1.5 K/mm3 (1.5-4.5); LYMPH % 43.1 % (24.0-44.0); MEAN CORPUSCULAR HEMOGLOBIN 31.6 pg (27.0-33.0); MEAN CORPUSCULAR HGB CONC 34.3 g/dl (32.0-36.5); MEAN CORPUSCULAR VOLUME 92.1 fl (80.0-96.0); MONO # 0.3 K/mm3 (0.0-0.8); MONO % 8.9 % (0.0-5.0); NEUTROPHILS # 1.4 K/mm3 (1.8-7.7); NEUTROPHILS % 43.3 % (36.0-66.0); PLATELET COUNT, AUTOMATED 164 k/mm3 (150-450); RED CELL DISTRIBUTION WIDTH 12.6 % (11.5-14.5); WHITE BLOOD COUNT 3.2 K/mm3 (4.0-10.0)
[2016-09-30 08:56] LABS: ALBUMIN 3.1 GM/DL (3.2-5.2); ALBUMIN/GLOBULIN RATIO 1.15 (1.00-1.93); ALKALINE PHOSPHATASE 43 U/L (45-117); ALT/SGPT 14 U/L (12-78); ANION GAP 7 MEQ/L (8-16); AST/SGOT 23 U/L (15-37); BILIRUBIN,TOTAL 0.4 MG/DL (0.2-1.0); BLOOD UREA NITROGEN 6 MG/DL (7-18); CALCIUM LEVEL 8.2 MG/DL (8.5-10.1); CARBON DIOXIDE LEVEL 22 MEQ/L (21-32); CHLORIDE LEVEL 108 MEQ/L (98-107); GLOMERULAR FILTRATION RATE > 60.0 (>60); GLUCOSE, FASTING 73 MG/DL (70-105); MAGNESIUM LEVEL 2.2 MG/DL (1.8-2.4); POTASSIUM SERUM 3.9 MEQ/L (3.5-5.1); SODIUM LEVEL 137 MEQ/L (136-145); TOTAL PROTEIN 5.8 GM/DL (6.4-8.2)
[2016-09-30] MEDS ORDERED: FIDAXOMICIN 200 MG TAB (DIFICID) PO SCH (09:00)
[2016-09-30] MEDS ORDERED: predniSONE 5 MG TAB PO SCH (09:00)
[2016-09-30] MEDS: MULTIVITAMINS/MINERALS THERAP 1 TAB PO SCH (09:16)
[2016-09-30] MEDS: PANTOPRAZOLE 40MG TAB (PROTONIX) PO SCH (09:16)
[2016-09-30] MEDS: LACTOBACILLUS ACIDOPHILUS CAP (BACID) PO SCH (09:16)
--- NOTE | 2016-09-30 09:43 | IPNPDOC ---
Subjective Date Seen The patient was seen on 09/30/16. Subjective Chief Complaint/HPI The patient is a 36-year-old female admitted with a reason for visit of Clostridium Difficile Diarrhea. General: Denies: Chills, Night Sweats Eyes: Denies: Pain ENT: Denies: Head Aches, Dysphagia Skin: Denies: Rash Pulmonary: Denies: Dyspnea Cardiovascular: Denies: Chest Pain, Palpitations Gastrointestinal: Denies: Nausea, Abdominal Pain Genitourinary: Denies: Dysuria Objective Physical Examination General Exam: Positive: Alert, No Acute Distress Chest Exam: Positive: Clear to auscultation, Normal air movement, Negative: Rales, Rhonchi, Wheezing Heart Exam: Positive: Rate Normal, Negative: Murmurs Abdomen Exam: Positive: Normal bowel sounds, Soft, Negative: Tenderness Skin Exam: Negative: Rash Assessment /Plan Problems (1) Clostridium difficile diarrhea Status: Acute Response to Treatment: Improving Problem Text: she was unable to obtain vanco yesterday due to insurance obstruction (prior auth and similar nonsense). she has intolerance, due to N&V, of metronidazole. (2) SLE (systemic lupus erythematosus) Status: Chronic Response to Treatment: Stable Problem Text: currently not on her immunosuppression med. being held due to dental infection and now the cdiff Plan/VTE VTE Prophylaxis Ordered?: Yes Plan IVF: Continue Diet: Continue Current Pt and Family Services: Insurance / Financial Anticipated Discharge: Home Disposition anticipate discharge tomorrow with continued improvement. VS, I&O, 24H, [facility] Vital Signs/I&O Vital Signs Date Time Temp Pulse Resp B/P (MAP) Pulse Ox O2 Delivery O2 Flow Rate FiO2 09/30/16 08:00 97.5 63 18 104/59 (74) 97 Room Air I&O- Last 24 Hours up to 6 AM 09/30/16 05:59 Intake Total 1120 ml Output Total 600 ml Balance 520 ml Laboratory Data 24H LABS Laboratory Tests 2 09/29/16 20:04: White Blood Count 4.9, Red Blood Count 3.93L, Hemoglobin 12.1, Hematocrit 35.9L , Mean Corpuscular Volume 91.3, Mean Corpuscular Hemoglobin 30.8, Mean Corpuscular Hemoglobin Concent 33.7, Red Cell Distribution Width 12.3, Platelet Count 183, Neutrophils (%) (Auto) 62.2, Lymphocytes (%) (Auto) 27.7, Monocytes ( %) (Auto) 6.5H, Eosinophils (%) (Auto) 0.4, Basophils (%) (Auto) 0.9, Neutrophils # (Auto) 3.0, Lymphocytes # (Auto) 1.4L, Monocytes # (Auto) 0.3, Eosinophils # (Auto) 0.0, Basophils # (Auto) 0.0, Large Unclassified Cells % 2.2 , Large Unclassified Cells # 0.1, Anion Gap 4L, Glomerular Filtration Rate > 60.0, Blood Urea Nitrogen 6L, Creatinine 0.74, Sodium Level 138, Potassium Level 3.6, Chloride Level 106, Carbon Dioxide Level 28, Calcium Level 8.8 09/30/16 07:07: White Blood Count 3.2L, Red Blood Count 3.62L, Hemoglobin 11.4L, Hematocrit 33.3L, Mean Corpuscular Volume 92.1, Mean Corpuscular Hemoglobin 31.6, Mean Corpuscular Hemoglobin Concent 34.3, Red Cell Distribution Width 12.6, Platelet Count 164, Neutrophils (%) (Auto) 43.3, Lymphocytes (%) (Auto) 43.1, Monocytes ( %) (Auto) 8.9H, Eosinophils (%) (Auto) 1.2, Basophils (%) (Auto) 0.8, Neutrophils # (Auto) 1.4L, Lymphocytes # (Auto) 1.5, Monocytes # (Auto) 0.3, Eosinophils # (Auto) 0.0, Basophils # (Auto) 0.0, Large Unclassified Cells % 2.8 , Large Unclassified Cells # 0.1 CBC/BMP Laboratory Tests 09/29/16 20:04 Red Blood Count 3.93 L, Mean Corpuscular Volume 91.3, Mean Corpuscular Hemoglobin 30.8, Mean Corpuscular Hemoglobin Concent 33.7, Red Cell Distribution Width 12.3, Neutrophils (%) (Auto) 62.2, Lymphocytes (%) (Auto) 27.7, Monocytes (%) (Auto) 6.5 H, Eosinophils (%) (Auto) 0.4, Basophils (%) ( Auto) 0.9, Neutrophils # (Auto) 3.0, Lymphocytes # (Auto) 1.4 L, Monocytes # ( Auto) 0.3, Eosinophils # (Auto) 0.0, Basophils # (Auto) 0.0, Calcium Level 8.8 09/30/16 07:07 Red Blood Count 3.62 L, Mean Corpuscular Volume 92.1, Mean Corpuscular Hemoglobin 31.6, Mean Corpuscular Hemoglobin Concent 34.3, Red Cell Distribution Width 12.6, Neutrophils (%) (Auto) 43.3, Lymphocytes (%) (Auto) 43.1, Monocytes (%) (Auto) 8.9 H, Eosinophils (%) (Auto) 1.2, Basophils (%) ( Auto) 0.8, Neutrophils # (Auto) 1.4 L, Lymphocytes # (Auto) 1.5, Monocytes # ( Auto) 0.3, Eosinophils # (Auto) 0.0, Basophils # (Auto) 0.0 Mark Jorge MD Sep 30, 2016 09:43
[2016-09-30] MEDS ORDERED: FIRS1SOL3 PO (09:46)
--- NOTE | 2016-09-30 10:22 | ECGEPIP ---
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
[2016-09-30] MEDS: ACETAMINOPHEN TAB 650MG DOSE (2X325MG) PO PRN ×3 (15:25→23:58)
[2016-09-30] MEDS ORDERED: SLF 3 ML SYR IV PRN (15:30)
[2016-09-30] MEDS: SLF 3 ML SYR IV SCH (23:56)
[2016-10-01] VITALS: BP 110/72
[2016-10-01] MEDS: VANCOMYCIN ORAL SOL 250MG/5ML ORAL SYRINGE PO SCH (06:27)
[2016-10-01] MEDS: SLF 3 ML SYR IV SCH (06:27)
[2016-10-01 06:52] LABS: BASO % 1.2 % (0.0-1.0); EOS % 1.6 % (0.0-3.0); LARGE UNSTAINED CELL # 0.1 K/mm3 (0.0-0.4); LARGE UNSTAINED CELL % 2.6 % (0.0-4.0); LYMPH # 1.5 K/mm3 (1.5-4.5); LYMPH % 45.8 % (24.0-44.0); MEAN CORPUSCULAR HEMOGLOBIN 30.9 pg (27.0-33.0); MEAN CORPUSCULAR HGB CONC 33.5 g/dl (32.0-36.5); MEAN CORPUSCULAR VOLUME 92.4 fl (80.0-96.0); MONO # 0.2 K/mm3 (0.0-0.8); MONO % 8.1 % (0.0-5.0); NEUTROPHILS # 1.2 K/mm3 (1.8-7.7); NEUTROPHILS % 40.7 % (36.0-66.0); PLATELET COUNT, AUTOMATED 167 k/mm3 (150-450); RED CELL DISTRIBUTION WIDTH 12.6 % (11.5-14.5)
[2016-10-01 07:16] LABS: ALBUMIN 3.5 GM/DL (3.2-5.2); ALKALINE PHOSPHATASE 45 U/L (45-117); ALT/SGPT 15 U/L (12-78); ANION GAP 4 MEQ/L (8-16); AST/SGOT 11 U/L (15-37); BILIRUBIN,TOTAL 0.4 MG/DL (0.2-1.0); BLOOD UREA NITROGEN 4 MG/DL (7-18); CALCIUM LEVEL 8.4 MG/DL (8.5-10.1); CARBON DIOXIDE LEVEL 29 MEQ/L (21-32); CHLORIDE LEVEL 106 MEQ/L (98-107); CREATININE FOR GFR 0.53 MG/DL (0.55-1.02); GLOMERULAR FILTRATION RATE > 60.0 (>60); GLUCOSE, FASTING 81 MG/DL (70-105); MAGNESIUM LEVEL 2.2 MG/DL (1.8-2.4); POTASSIUM SERUM 3.7 MEQ/L (3.5-5.1); SODIUM LEVEL 139 MEQ/L (136-145)
[2016-10-01 08:00] VITALS: BP 98/61
[2016-10-01] MEDS: MULTIVITAMINS/MINERALS THERAP 1 TAB PO SCH ×2 (09:00→09:19)
[2016-10-01] MEDS: PANTOPRAZOLE 40MG TAB (PROTONIX) PO SCH (09:19)
[2016-10-01] MEDS: LACTOBACILLUS ACIDOPHILUS CAP (BACID) PO SCH (09:19)
[2016-10-01] MEDS ORDERED: PRED5TA PO (10:09)
--- NOTE | 2016-10-03 08:39 | DSES ---
DATE OF ADMISSION: 09/29/2016 DATE OF DISCHARGE: 09/30/2016 BRIEF HISTORY AND PHYSICAL: The patient is a 36-year-old patient of Dr. Wilson's with a history of systemic lupus erythematosus (SLE) and factor V Leiden mutation with a previous history of C diff colitis who presented to the emergency room after inability to acquire outpatient antibiotics for a recent C diff infection that was diagnosed in the emergency room. She had been given a script for vancomycin discharged home, unable to fill the script because required prior authorization, so she was instructed to come back to the emergency room. She had dizziness, nausea, some vomiting and diarrhea for a week, watery with some blood-tinged and a low-grade fever. No significant abdominal pain. PAST MEDICAL HISTORY IS SIGNIFICANT FOR: Systemic lupus erythematosus (SLE) , factor V Leiden mutation, complex partial seizures, recent tooth infection for which she received ampicillin and clindamycin, as well as a history of C diff colitis. PERTINENT LABS ON ADMISSION: White count 4.9, hemoglobin 12.1, platelets 185,000. Sodium 138, potassium 2.6, BUN 6, creatinine 0.7, glucose of 106. HOSPITAL COURSE: The patient was admitted for C diff colitis placed on oral vancomycin and Zofran as needed for nausea. Her symptoms gradually improved. On the date of discharge, she reports that she has not had bowel movement since admission. She no longer feels nauseous. She is hungry and looking forward to eating. She does not have any abdominal plain and she feels well. She will be discharged home on oral vancomycin. Script has been sent to [facility] and has been approved by her insurance and she will followup with Dr. Wilson in the office next week. 2. Systemic lupus erythematosus (SLE). She is in communication with her switch operator, who feels she is having a slight flare and will be adjusting her prednisone accordingly. Her immunosuppressant therapy is on hold. DISPOSITION: She is stable for discharge on vancomycin 250 mg every 6 hours. Prednisone has been given here 5 mg every other day. The dose probably will be adjusted by her switch operator as an outpatient. She has Tylenol 650 mg every 6 hours as needed for pain, gabapentin 100 mg at bedtime as needed for pain, Bacid one tablet daily, multivitamin daily. Her Arava is on hold. DISCHARGE DIAGNOSES: 1. Clostridium difficile diarrhea. 2. Systemic lupus erythematosus (SLE) flare.
== END 2016-10-01 11:47 | disposition home or self-care (01) | DRG 248 ==
LOC: M ED 18:35 → M ED INP 20:27 → M PED 23:27
PROVIDERS: ADMIT Internal Medicine; ATTEND Family Medicine
DX: A04.7 Enterocolitis due to Clostridium difficile (principal); D68.51 Activated protein C resistance; M32.9 Systemic lupus erythematosus, unspecified; G40.209 Localization-related (focal) (partial) symptomatic epilepsy and epileptic syndromes with complex partial seizures, not intractable, without status epilepticus; Z79.899 Other long term (current) drug therapy; Z88.2 Allergy status to sulfonamides; Z88.5 Allergy status to narcotic agent; Z88.6 Allergy status to analgesic agent; Z91.018 Allergy to other foods; Z90.710 Acquired absence of both cervix and uterus; Z87.891 Personal history of nicotine dependence; Z79.52 Long term (current) use of systemic steroids

== ENCOUNTER 2016-11-26 13:52 | Emergency (ER) | payer OTHER ==
[~2016-11-26] VITALS: Ht 167.6 cm; Wt 64.5 kg
[~2016-11-26 13:52] MED LIST changes: +BACITAB PO; +FIRS1SOL3 PO; +GABA-279 PO; +VITMTA PO
[2016-11-26] MEDS ORDERED: METH4TAB28 PO (14:10)
[2016-11-26] MEDS ORDERED: [UNRECOGNIZED DRUG - OTHER] PO (14:10)
[2016-11-26] MEDS ORDERED: NS 1,000 ML IV ONE (15:45)
[2016-11-26 16:46] LABS: INR 0.94
[2016-11-26 17:02] LABS: ALBUMIN 3.9 GM/DL (3.2-5.2); ALT/SGPT 17 U/L (12-78); ANION GAP 8 MEQ/L (8-16); AST/SGOT 13 U/L (15-37); BILIRUBIN,DIRECT 0.1 MG/DL (0.0-0.2); BLOOD UREA NITROGEN 6 MG/DL (7-18); CALCIUM LEVEL 8.7 MG/DL (8.5-10.1); CARBON DIOXIDE LEVEL 29 MEQ/L (21-32); CHLORIDE LEVEL 104 MEQ/L (98-107); GLOMERULAR FILTRATION RATE > 60.0 (>60); GLUCOSE, FASTING 74 MG/DL (70-105); POTASSIUM SERUM 3.5 MEQ/L (3.5-5.1); SODIUM LEVEL 141 MEQ/L (136-145)
[2016-11-26 17:07] LABS: ALBUMIN/GLOBULIN RATIO 1.22 (1.00-1.93); ALKALINE PHOSPHATASE 54 U/L (45-117); BILIRUBIN,TOTAL 0.4 MG/DL (0.2-1.0); FREE T4 1.04 NG/DL (0.76-1.46); TOTAL PROTEIN 7.1 GM/DL (6.4-8.2)
[2016-11-26 17:09] LABS: BASO % 0.7 % (0.0-1.0); EOS # 0.1 K/mm3 (0.0-0.50); EOS % 1.1 % (0.0-3.0); LARGE UNSTAINED CELL # 0.1 K/mm3 (0.0-0.4); LYMPH # 1.5 K/mm3 (1.5-4.5); LYMPH % 25.7 % (24.0-44.0); MEAN CORPUSCULAR HEMOGLOBIN 31.5 pg (27.0-33.0); MEAN CORPUSCULAR HGB CONC 34.9 g/dl (32.0-36.5); MEAN CORPUSCULAR VOLUME 90.2 fl (80.0-96.0); MONO # 0.3 K/mm3 (0.0-0.8); MONO % 4.9 % (0.0-5.0); NEUTROPHILS # 3.9 K/mm3 (1.8-7.7); NEUTROPHILS % 65.7 % (36.0-66.0); PLATELET COUNT, AUTOMATED 212 k/mm3 (150-450); RED CELL DISTRIBUTION WIDTH 12.3 % (11.5-14.5); WHITE BLOOD COUNT 5.9 K/mm3 (4.0-10.0)
[2016-11-26] MEDS ORDERED: ISOVUE-370 76% 100ML VIAL (Q9967) As Ordered ONE (17:18)
--- NOTE | 2016-11-26 18:20 | REP ---
CT ANGIOGRAM OF THE CHEST: 11/26/2016. Clinical history: Chest pain. Technique: Bolus of 75 ml Isovue 370, scanning through the chest with our pulmonary embolism protocol. Coronal and sagittal thick slab MIP reformatting divided. Comparison: CTA chest 05/03/2015, chest x-ray 02/20/2016. Findings: Helical scanning through the chest shows the lung thacker well inflated. Minor dependent atelectatic change posteriorly in the right greater than left lung but minimal regardless. There is no effusion, pleural thickening, calcified pleural plaque, pneumothorax, infiltrate, atelectasis, nodule or other acute finding. No evidence of bronchiectasis. Heart is not enlarged. There is no pericardial thickening or effusion. The aorta is without aneurysm or dissection. The main, right and left pulmonary arteries and the mediastinum are without filling defects. The lobar, segmental and visible subsegmental arteries are also without filling defect or vessel cutoff. No pathologic sized mediastinal or hilar adenopathy. Tracheal airway is intact. There is no axillary or supraclavicular mass. Bone windows show the sternum, manubrium, clavicles, AC joints, visual portions of the glenohumeral joints, scapula and ribs all intact. No compression deformities are noted. The liver and spleen seen in part were grossly intact. Upper poles of the kidneys and the adjacent adrenal glands intact. No hiatal hernia. Tail of the pancreas seen and unremarkable. Impression: 1. Negative CTA chest. There is no CT evidence of pulmonary embolism, aortic aneurysm or dissection, acute infiltrate, pneumothorax or pneumomediastinum. No effusion, mediastinal adenopathy, lung nodule or lung mass. 2. Bones intact. Signed by Gómez Schulz MD 11/26/2016 08:06 P
[2016-11-26 18:38] VITALS: BP 110/71
[2016-11-26 18:53] LABS: ERYTHROCYTE SEDIMENTATION RATE 8 mm/hr (0-20)
--- NOTE | 2016-11-27 08:24 | ECGEPIP ---
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
== END 2016-11-26 18:40 | disposition home or self-care (01) ==
LOC: M ED 13:52
DX: M94.0 Chondrocostal junction syndrome [Tietze] (principal); R00.1 Bradycardia, unspecified; M32.9 Systemic lupus erythematosus, unspecified; K52.9 Noninfective gastroenteritis and colitis, unspecified; Z86.19 Personal history of other infectious and parasitic diseases; Z87.440 Personal history of urinary (tract) infections; E03.9 Hypothyroidism, unspecified; R56.9 Unspecified convulsions; M54.40 Lumbago with sciatica, unspecified side; Z86.14 Personal history of Methicillin resistant Staphylococcus aureus infection; D68.59 Other primary thrombophilia; Z92.241 Personal history of systemic steroid therapy; Z79.82 Long term (current) use of aspirin; Z88.6 Allergy status to analgesic agent; Z88.5 Allergy status to narcotic agent; Z88.2 Allergy status to sulfonamides; Z91.018 Allergy to other foods
CPT/HCPCS: 36415; 71275; 80048; 80076; 82550; 82553; 83690; 84439; 84443; 85025; 85610; 85652; 85730; 86140; 93000; 99284; Q9967

== ENCOUNTER → 2016-11-28 | Outpatient (CLI) | payer OTHER ==
[~2016-11-28] MED LIST changes: +METH4TAB28 PO; +[UNRECOGNIZED DRUG - OTHER] PO
[2016-11-28 15:40] LABS: FREE T4 0.96 NG/DL (0.76-1.46)
== END ==
LOC: M LAB 14:20
PROVIDERS: ATTEND Family Medicine
DX: R94.6 Abnormal results of thyroid function studies (principal)

== ENCOUNTER → 2016-12-02 | Outpatient (CLI) | payer OTHER ==
--- NOTE | 2016-12-03 06:58 | REP ---
Clinical: Low thyroid stimulating hormone levels. Technique: Real time addison scale and color evaluation using linear high frequency transducer. Findings: The thyroid gland is diffusely heterogeneous and hypervascular raising the possibility of pathology such as Soha's thyroiditis. Right lobe measures 3.5 x 1.3 x 1.4 cm with suggestions for a vague 18 x 7 x 9 mm nodule in the mid to lower pole region. Left lobe measures 3.7 x 1.1 x 1.5 cm without discrete nodule. Impression: Heterogeneous hyperemic thyroid gland raises the possibility of Soha's thyroiditis. Vague right lower lobe nodule cannot be excluded. Signed by James Topete MD 12/03/2016 06:50 A
== END ==
LOC: M RAD 12:35
PROVIDERS: ATTEND Family Medicine
DX: E04.9 Nontoxic goiter, unspecified (principal)

== ENCOUNTER → 2016-12-04 | Outpatient (REF) | payer OTHER | LOC: M LAB REF 13:09 | PROVIDERS: ATTEND Internal Medicine Nephrology | DX: M32.9 Systemic lupus erythematosus, unspecified (principal); D64.9 Anemia, unspecified ==

== ENCOUNTER → 2016-12-18 | Outpatient (REF) | payer OTHER | LOC: M LAB REF 13:58 | PROVIDERS: ATTEND Internal Medicine Endocrinology, Diabetes & Metabolism | DX: E04.1 Nontoxic single thyroid nodule (principal) ==

== ENCOUNTER → 2016-12-24 | Outpatient (CLI) | payer OTHER ==
[2016-12-24 14:28] LABS: FREE T4 0.8 NG/DL (0.76-1.46)
== END ==
LOC: M LAB 11:53
PROVIDERS: ATTEND Nurse Practitioner Family
DX: E06.3 Autoimmune thyroiditis (principal)

== ENCOUNTER → 2017-02-13 | Outpatient (CLI) | payer OTHER ==
[2017-02-13 12:37] LABS: BASO # 0.1 10^3/uL (0.0-0.2); BASO % 1.1 % (0.0-1.0); EOS # 0.1 10^3/uL (0.0-0.50); EOS % 1.8 % (0.0-3.0); IMMATURE GRANULOCYTE % 0.4 % (0-0); LYMPH # 1.3 10^3/uL (1.5-4.5); LYMPH % 22.4 % (24.0-44.0); MEAN CORPUSCULAR HEMOGLOBIN 29.9 pg (27.0-33.0); MEAN CORPUSCULAR HGB CONC 32.6 g/dl (32.0-36.5); MEAN CORPUSCULAR VOLUME 91.5 fl (80.0-96.0); MONO # 0.7 10^3/uL (0.0-0.8); MONO % 11.9 % (0.0-5.0); NEUTROPHILS # 3.5 10^3/uL (1.8-7.7); NEUTROPHILS % 62.4 % (36.0-66.0); PLATELET COUNT, AUTOMATED 202 10^3/uL (150-450); RED CELL DISTRIBUTION WIDTH 13.2 % (11.5-14.5); WHITE BLOOD COUNT 5.6 10^3/uL (4.0-10.0)
--- NOTE | 2017-02-13 12:56 | REP ---
PA and lateral chest: Comparison is 02/20/2016. The lung thacker are clear. The cardiac size is normal The cecilia, mediastinum, and bony thorax are unremarkable. Impression: Negative PA and lateral chest. There is no interval change. Signed by Robbie Billy MD 02/13/2017 12:47 P
== END ==
LOC: M LAB 11:58
PROVIDERS: ATTEND Nurse Practitioner Family
DX: R53.83 Other fatigue (principal); J40 Bronchitis, not specified as acute or chronic; R04.2 Hemoptysis

== ENCOUNTER → 2017-02-13 | Outpatient (REF) | payer OTHER | LOC: M SFHCPLAZ 11:39 | PROVIDERS: ATTEND Nurse Practitioner Family | DX: R53.83 Other fatigue (principal) ==

== ENCOUNTER → 2017-03-19 | Outpatient (CLI) | payer OTHER ==
[2017-03-19 15:52] LABS: FREE T4 0.84 NG/DL (0.76-1.46)
== END ==
LOC: M LAB 14:51
DX: E06.3 Autoimmune thyroiditis (principal)
CPT/HCPCS: 84443

== ENCOUNTER 2017-04-17 12:39 | Emergency (ER) | payer OTHER ==
[2017-04-17 14:54] LABS: BASO % 0.7 % (0.0-1.0); EOS % 0.3 % (0.0-3.0); HEMATOCRIT 37.6 % (36.0-47.0); HEMOGLOBIN 12.5 g/dl (12.0-16.0); IMMATURE GRANULOCYTE % 0.3 % (0-3.0); LYMPH # 1.7 10^3/uL (1.5-4.5); LYMPH % 28.1 % (24.0-44.0); MEAN CORPUSCULAR HEMOGLOBIN 30.4 pg (27.0-33.0); MEAN CORPUSCULAR HGB CONC 33.2 g/dl (32.0-36.5); MEAN CORPUSCULAR VOLUME 91.5 fl (80.0-96.0); MONO # 0.6 10^3/uL (0.0-0.8); MONO % 9.5 % (0.0-5.0); NEUTROPHILS # 3.6 10^3/uL (1.8-7.7); NEUTROPHILS % 61.1 % (36.0-66.0); PLATELET COUNT, AUTOMATED 201 10^3/uL (150-450); RED BLOOD COUNT 4.11 10^6/uL (4.00-5.40); RED CELL DISTRIBUTION WIDTH 12.2 % (11.5-14.5); WHITE BLOOD COUNT 5.9 10^3/uL (4.0-10.0)
[2017-04-17 15:18] LABS: CORTISOL BASELINE 4.2 UG/DL (4.3-22.4)
[2017-04-17 15:21] LABS: ANION GAP 6 MEQ/L (8-16); BLOOD UREA NITROGEN 6 MG/DL (7-18); CALCIUM LEVEL 8.9 MG/DL (8.5-10.1); CARBON DIOXIDE LEVEL 29 MEQ/L (21-32); CHLORIDE LEVEL 105 MEQ/L (98-107); CREATININE FOR GFR 0.55 MG/DL (0.55-1.30); FREE THYROXINE INDEX 2.1 % (1.3-4.8); GLOMERULAR FILTRATION RATE > 60.0 (>60); GLUCOSE, FASTING 80 MG/DL (70-100); MAGNESIUM LEVEL 2.3 MG/DL (1.8-2.4); POTASSIUM SERUM 3.5 MEQ/L (3.5-5.1); SODIUM LEVEL 140 MEQ/L (136-145); T UPTAKE 26 % (30-39); THYROXINE (T4) 7.9 UG/DL (4.5-12.0)
== END 2017-04-17 14:59 | disposition home or self-care (01) ==
LOC: M ED 12:39
DX: R07.89 Other chest pain (principal); D68.59 Other primary thrombophilia; M32.9 Systemic lupus erythematosus, unspecified; E05.90 Thyrotoxicosis, unspecified without thyrotoxic crisis or storm; Z86.19 Personal history of other infectious and parasitic diseases; Z79.899 Other long term (current) drug therapy; Z88.5 Allergy status to narcotic agent; Z88.6 Allergy status to analgesic agent; Z88.2 Allergy status to sulfonamides; Z91.018 Allergy to other foods
CPT/HCPCS: 93005

== ENCOUNTER 2017-05-13 13:17 | Emergency (ER) | payer OTHER | END 2017-05-13 13:34 | disposition left against medical advice (07) | LOC: M ED 13:17 | DX: H92.09 Otalgia, unspecified ear (principal); M54.2 Cervicalgia; Z53.21 Procedure and treatment not carried out due to patient leaving prior to being seen by health care provider ==

== ENCOUNTER → 2017-05-19 | Outpatient (CLI) | payer OTHER | LOC: M RAD 09:03 | DX: R23.4 Changes in skin texture (principal) | CPT/HCPCS: 77066 ==

== ENCOUNTER 2017-07-03 12:17 | Emergency (ER) | payer OTHER ==
[2017-07-03 13:23] LABS: BASO % 0.9 % (0.0-1.0); EOS % 0.7 % (0.0-3.0); HEMATOCRIT 38.2 % (36.0-47.0); HEMOGLOBIN 12.6 g/dl (12.0-15.5); IMMATURE GRANULOCYTE % 0.2 % (0-3.0); LYMPH # 1.5 10^3/uL (1.5-4.5); LYMPH % 34.3 % (24.0-44.0); MEAN CORPUSCULAR HEMOGLOBIN 29.6 pg (27.0-33.0); MEAN CORPUSCULAR VOLUME 89.9 fl (80.0-96.0); MONO # 0.5 10^3/uL (0.0-0.8); MONO % 10.9 % (0.0-5.0); NEUTROPHILS # 2.3 10^3/uL (1.8-7.7); PLATELET COUNT, AUTOMATED 215 10^3/uL (150-450); RED BLOOD COUNT 4.25 10^6/uL (4.00-5.40); WHITE BLOOD COUNT 4.3 10^3/uL (4.0-10.0)
[2017-07-03 13:27] LABS: INR 0.94; PARTIAL THROMBOPLASTIN TIME 26.6 SECONDS (26.8-37.9); PROTHROMBIN TIME 12.7 SECONDS (12.4-14.5)
[2017-07-03 13:37] LABS: ANION GAP 5 MEQ/L (8-16); BLOOD UREA NITROGEN 7 MG/DL (7-18); CALCIUM LEVEL 8.7 MG/DL (8.5-10.1); CARBON DIOXIDE LEVEL 28 MEQ/L (21-32); CHLORIDE LEVEL 108 MEQ/L (98-107); CPK CREATINE PHOSPHOKINASE 59 U/L (26-192); CREATININE FOR GFR 0.71 MG/DL (0.55-1.30); GLOMERULAR FILTRATION RATE > 60.0 (>60); GLUCOSE, FASTING 85 MG/DL (70-100); MAGNESIUM LEVEL 2.1 MG/DL (1.8-2.4); POTASSIUM SERUM 3.8 MEQ/L (3.5-5.1); SODIUM LEVEL 141 MEQ/L (136-145); TROPONIN I < 0.02 NG/ML (< 0.10)
[2017-07-03 13:43] LABS: CK-MB VALUE MASS < 1.0 NG/ML (<3.6); MB/CK RELATIVE INDEX 1.69 (< OR =4)
== END 2017-07-03 16:46 | disposition home or self-care (01) ==
LOC: M ED 12:17
DX: R20.2 Paresthesia of skin (principal); M32.9 Systemic lupus erythematosus, unspecified; D68.51 Activated protein C resistance; Z79.899 Other long term (current) drug therapy; Z86.69 Personal history of other diseases of the nervous system and sense organs; Z98.890 Other specified postprocedural states; Z87.891 Personal history of nicotine dependence; Z91.018 Allergy to other foods; Z88.2 Allergy status to sulfonamides; Z88.5 Allergy status to narcotic agent; Z88.8 Allergy status to other drugs, medicaments and biological substances; Z82.3 Family history of stroke
CPT/HCPCS: 70551

== ENCOUNTER → 2017-07-13 | Outpatient (REF) | payer OTHER | LOC: M SFHCPLAZ 12:32 | DX: D49.2 Neoplasm of unspecified behavior of bone, soft tissue, and skin (principal) ==

== ENCOUNTER 2017-10-07 17:40 | Emergency (ER) | payer OTHER ==
[2017-10-07] MEDS: NS 1,000 ML IV (20:12)
[2017-10-07] MEDS: ACETAMINOPHEN TAB 650MG DOSE (2X325MG) PO (20:15)
[2017-10-07 20:25] LABS: BASO # 0.1 10^3/uL (0.0-0.2); BASO % 0.9 % (0.0-1.0); EOS % 0.6 % (0.0-3.0); HEMATOCRIT 37.9 % (36.0-47.0); HEMOGLOBIN 12.4 g/dl (12.0-15.5); IMMATURE GRANULOCYTE % 0.3 % (0-3.0); LYMPH # 2.2 10^3/uL (1.5-4.5); LYMPH % 34.2 % (24.0-44.0); MEAN CORPUSCULAR HEMOGLOBIN 29.6 pg (27.0-33.0); MEAN CORPUSCULAR HGB CONC 32.7 g/dl (32.0-36.5); MEAN CORPUSCULAR VOLUME 90.5 fl (80.0-96.0); MONO # 0.6 10^3/uL (0.0-0.8); MONO % 9.7 % (0.0-5.0); NEUTROPHILS # 3.5 10^3/uL (1.8-7.7); NEUTROPHILS % 54.3 % (36.0-66.0); PLATELET COUNT, AUTOMATED 232 10^3/uL (150-450); RED BLOOD COUNT 4.19 10^6/uL (4.00-5.40); RED CELL DISTRIBUTION WIDTH 12.8 % (11.5-14.5); WHITE BLOOD COUNT 6.5 10^3/uL (4.0-10.0)
[2017-10-07 20:31] LABS: KETONE, URINE AUTO RFX NEGATIVE (NEGATIVE); LEUKOCYTE ESTERASE UR AUTO RFX NEGATIVE (NEGATIVE); NITRITE, URINE AUTO RFX NEGATIVE (NEGATIVE); RBC, URINE AUTO RFX 0 /HPF (0-3); SPECIFIC GRAVITY UR AUTO RFX 1.004 (1.002-1.035); SQUAM EPITHELIAL CELL UR AURFX 1 /HPF (0-6); WBC, URINE AUTO RFX 0 /HPF (0-3)
[2017-10-07 20:41] LABS: ANION GAP 9 MEQ/L (8-16); BLOOD UREA NITROGEN 10 MG/DL (7-18); CALCIUM LEVEL 8.9 MG/DL (8.5-10.1); CARBON DIOXIDE LEVEL 22 MEQ/L (21-32); CHLORIDE LEVEL 109 MEQ/L (98-107); CREATININE FOR GFR 0.71 MG/DL (0.55-1.30); GLOMERULAR FILTRATION RATE > 60.0 (>60); GLUCOSE, FASTING 74 MG/DL (70-100); POTASSIUM SERUM 4.6 MEQ/L (3.5-5.1); SODIUM LEVEL 140 MEQ/L (136-145)
== END 2017-10-07 21:23 | disposition home or self-care (01) ==
LOC: M ED 17:40
DX: R51 Headache (principal); R00.1 Bradycardia, unspecified; R56.9 Unspecified convulsions; Z86.19 Personal history of other infectious and parasitic diseases; E06.3 Autoimmune thyroiditis; D68.59 Other primary thrombophilia; M32.9 Systemic lupus erythematosus, unspecified; E05.90 Thyrotoxicosis, unspecified without thyrotoxic crisis or storm; Z79.899 Other long term (current) drug therapy; Z88.6 Allergy status to analgesic agent; Z88.2 Allergy status to sulfonamides; Z91.018 Allergy to other foods
CPT/HCPCS: 70450

== ENCOUNTER 2017-11-13 14:51 | Emergency (ER) | payer OTHER ==
[2017-11-13] MEDS: NS 1,000 ML IV (17:45)
[2017-11-13 18:00] LABS: BASO # 0.1 10^3/uL (0.0-0.2); BASO % 0.6 % (0.0-1.0); EOS % 0.5 % (0.0-3.0); HEMATOCRIT 39.3 % (36.0-47.0); IMMATURE GRANULOCYTE % 0.4 % (0-3.0); LYMPH # 2.3 10^3/uL (1.5-4.5); LYMPH % 28.4 % (24.0-44.0); MEAN CORPUSCULAR HEMOGLOBIN 29.9 pg (27.0-33.0); MEAN CORPUSCULAR HGB CONC 33.1 g/dl (32.0-36.5); MEAN CORPUSCULAR VOLUME 90.3 fl (80.0-96.0); MONO # 0.7 10^3/uL (0.0-0.8); MONO % 8.3 % (0.0-5.0); NEUTROPHILS # 4.9 10^3/uL (1.8-7.7); NEUTROPHILS % 61.8 % (36.0-66.0); PLATELET COUNT, AUTOMATED 233 10^3/uL (150-450); RED BLOOD COUNT 4.35 10^6/uL (4.00-5.40); RED CELL DISTRIBUTION WIDTH 13.1 % (11.5-14.5); WHITE BLOOD COUNT 7.9 10^3/uL (4.0-10.0)
[2017-11-13 18:15] LABS: INR 0.87; PROTHROMBIN TIME 11.9 SECONDS (12.1-14.4)
[2017-11-13 18:16] LABS: PARTIAL THROMBOPLASTIN TIME 24.6 SECONDS (25.4-37.6)
[2017-11-13 18:19] LABS: CONTROL LINE HCG INT CTR LINE PRESENT; HCG, SERUM QUALITATIVE NEGATIVE (NEGATIVE)
[2017-11-13 18:26] LABS: ERYTHROCYTE SEDIMENTATION RATE 12 mm/hr (0-20)
[2017-11-13 18:27] LABS: LACTIC ACID SEPSIS PROTOCOL 1.2 MMOL/L (0.4-2.0)
[2017-11-13 18:27] LABS: ALBUMIN 4.2 GM/DL (3.2-5.2); ALBUMIN/GLOBULIN RATIO 1.05 (1.00-1.93); ALKALINE PHOSPHATASE 58 U/L (45-117); ALT/SGPT 16 U/L (12-78); ANION GAP 9 MEQ/L (8-16); AST/SGOT 15 U/L (7-37); BILIRUBIN,DIRECT < 0.1 MG/DL (0.0-0.2); BILIRUBIN,TOTAL 0.2 MG/DL (0.2-1.0); BLOOD UREA NITROGEN 11 MG/DL (7-18); C REACTIVE PROTEIN QUANTITATIV 0.44 MG/DL (0.00-0.30); CALCIUM LEVEL 8.9 MG/DL (8.5-10.1); CARBON DIOXIDE LEVEL 26 MEQ/L (21-32); CHLORIDE LEVEL 105 MEQ/L (98-107); CREATININE FOR GFR 0.74 MG/DL (0.55-1.30); GLOMERULAR FILTRATION RATE > 60.0 (>60); GLUCOSE, FASTING 83 MG/DL (70-100); POTASSIUM SERUM 3.4 MEQ/L (3.5-5.1); SODIUM LEVEL 140 MEQ/L (136-145); TOTAL PROTEIN 8.2 GM/DL (6.4-8.2)
[2017-11-13 18:43] LABS: KETONE, URINE AUTO RFX NEGATIVE (NEGATIVE); LEUKOCYTE ESTERASE UR AUTO RFX NEGATIVE (NEGATIVE); MUCUS, URINE RFX SMALL (NEGATIVE); NITRITE, URINE AUTO RFX NEGATIVE (NEGATIVE); RBC, URINE AUTO RFX 5 /HPF (0-3); SPECIFIC GRAVITY UR AUTO RFX 1.025 (1.002-1.035); SQUAM EPITHELIAL CELL UR AURFX 14 /HPF (0-6); WBC, URINE AUTO RFX 1 /HPF (0-3)
== END 2017-11-13 19:47 | disposition home or self-care (01) ==
LOC: M ED 14:51
DX: L01.00 Impetigo, unspecified (principal); M32.9 Systemic lupus erythematosus, unspecified; G40.909 Epilepsy, unspecified, not intractable, without status epilepticus; D68.51 Activated protein C resistance; M54.30 Sciatica, unspecified side; E06.3 Autoimmune thyroiditis; Z86.19 Personal history of other infectious and parasitic diseases; Z88.6 Allergy status to analgesic agent; Z88.5 Allergy status to narcotic agent; Z88.2 Allergy status to sulfonamides; Z91.018 Allergy to other foods; Z79.899 Other long term (current) drug therapy
CPT/HCPCS: 80076

== ENCOUNTER → 2017-11-16 | Outpatient (REF) | payer OTHER ==
[2017-11-16 16:08] LABS: BASO # 0.1 10^3/uL (0.0-0.2); BASO % 0.8 % (0.0-1.0); EOS % 0.7 % (0.0-3.0); HEMATOCRIT 35.6 % (36.0-47.0); HEMOGLOBIN 11.9 g/dl (12.0-15.5); IMMATURE GRANULOCYTE % 0.3 % (0-3.0); LYMPH # 1.7 10^3/uL (1.5-4.5); LYMPH % 27.8 % (24.0-44.0); MEAN CORPUSCULAR HEMOGLOBIN 29.8 pg (27.0-33.0); MEAN CORPUSCULAR HGB CONC 33.4 g/dl (32.0-36.5); MEAN CORPUSCULAR VOLUME 89.2 fl (80.0-96.0); MONO # 0.5 10^3/uL (0.0-0.8); MONO % 8.4 % (0.0-5.0); NEUTROPHILS # 3.8 10^3/uL (1.8-7.7); PLATELET COUNT, AUTOMATED 213 10^3/uL (150-450); RED BLOOD COUNT 3.99 10^6/uL (4.00-5.40); RED CELL DISTRIBUTION WIDTH 13.2 % (11.5-14.5); WHITE BLOOD COUNT 6.1 10^3/uL (4.0-10.0)
[2017-11-16 16:37] LABS: ERYTHROCYTE SEDIMENTATION RATE 12 mm/hr (0-20)
[2017-11-16 19:23] LABS: APPEARANCE, URINE HAZY (CLEAR); BACTERIA, URINE AUTO 1+ (NEGATIVE); BILIRUBIN, URINE AUTO NEGATIVE (NEGATIVE); BLOOD, URINE BLOOD 1+ (NEGATIVE); COLOR, URINE YELLOW (YELLOW); GLUCOSE, URINE (UA) AUTO NEGATIVE (NEGATIVE); KETONE, URINE AUTO NEGATIVE (NEGATIVE); LEUKOCYTE ESTERASE, URINE AUTO NEGATIVE (NEGATIVE); MUCUS, URINE SMALL (NEGATIVE); NITRITE, URINE AUTO NEGATIVE (NEGATIVE); PROTEIN, URINE AUTO NEGATIVE (NEGATIVE); RBC, URINE AUTO 2 /HPF (0-3); SQUAMOUS EPITHELIAL CELL UR AU 14 /HPF (0-6); UROBILINOGEN, URINE AUTO 0.2 mg/dL (0.0-2.0); WBC, URINE AUTO 1 /HPF (0-3)
[2017-11-16 23:05] LABS: C REACTIVE PROTEIN QUANTITATIV 0.38 MG/DL (0.00-0.30)
== END ==
LOC: M SFHCPLAZ 13:58
DX: M32.9 Systemic lupus erythematosus, unspecified (principal)

== ENCOUNTER 2017-11-20 10:12 | Emergency (ER) | payer OTHER ==
[2017-11-20 10:40] LABS: BASO % 0.6 % (0.0-1.0); EOS % 0.9 % (0.0-3.0); HEMATOCRIT 36.9 % (36.0-47.0); IMMATURE GRANULOCYTE % 0.6 % (0-3.0); LYMPH # 1.5 10^3/uL (1.5-4.5); LYMPH % 31.8 % (24.0-44.0); MEAN CORPUSCULAR HEMOGLOBIN 29.3 pg (27.0-33.0); MEAN CORPUSCULAR HGB CONC 32.5 g/dl (32.0-36.5); MEAN CORPUSCULAR VOLUME 90.2 fl (80.0-96.0); MONO # 0.5 10^3/uL (0.0-0.8); MONO % 10.9 % (0.0-5.0); NEUTROPHILS # 2.6 10^3/uL (1.8-7.7); NEUTROPHILS % 55.2 % (36.0-66.0); PLATELET COUNT, AUTOMATED 207 10^3/uL (150-450); RED BLOOD COUNT 4.09 10^6/uL (4.00-5.40); RED CELL DISTRIBUTION WIDTH 13.1 % (11.5-14.5); WHITE BLOOD COUNT 4.7 10^3/uL (4.0-10.0)
[2017-11-20 11:10] LABS: ANION GAP 7 MEQ/L (8-16); BLOOD UREA NITROGEN 7 MG/DL (7-18); CALCIUM LEVEL 8.7 MG/DL (8.5-10.1); CARBON DIOXIDE LEVEL 27 MEQ/L (21-32); CHLORIDE LEVEL 108 MEQ/L (98-107); CK-MB VALUE MASS < 1.0 NG/ML (<3.6); CPK CREATINE PHOSPHOKINASE 59 U/L (26-192); CREATININE FOR GFR 0.64 MG/DL (0.55-1.30); GLOMERULAR FILTRATION RATE > 60.0 (>60); GLUCOSE, FASTING 86 MG/DL (70-100); MB/CK RELATIVE INDEX 1.69 (< OR =4); POTASSIUM SERUM 3.7 MEQ/L (3.5-5.1); SODIUM LEVEL 142 MEQ/L (136-145); TROPONIN I < 0.02 NG/ML (< 0.10)
[2017-11-20 11:22] LABS: CONTROL LINE HCG INT CTR LINE PRESENT; HCG, SERUM QUALITATIVE NEGATIVE (NEGATIVE)
[2017-11-20 11:45] LABS: ALBUMIN 3.8 GM/DL (3.2-5.2); ALBUMIN/GLOBULIN RATIO 1.12 (1.00-1.93); ALKALINE PHOSPHATASE 51 U/L (45-117); ALT/SGPT 19 U/L (12-78); AST/SGOT 10 U/L (7-37); BILIRUBIN,DIRECT 0.1 MG/DL (0.0-0.2); BILIRUBIN,TOTAL 0.3 MG/DL (0.2-1.0); LIPASE 106 U/L (73-393); TOTAL PROTEIN 7.2 GM/DL (6.4-8.2)
[2017-11-20] MEDS ORDERED: ISOVUE-370 76% 100ML VIAL (Q9967) As Ordered (13:01)
[2017-11-20 14:17] LABS: CK-MB VALUE MASS < 1.0 NG/ML (<3.6); CPK CREATINE PHOSPHOKINASE 50 U/L (26-192); TROPONIN I < 0.02 NG/ML (< 0.10)
== END 2017-11-20 14:58 | disposition home or self-care (01) ==
LOC: M ED 10:12
DX: R07.89 Other chest pain (principal); M32.9 Systemic lupus erythematosus, unspecified; R56.9 Unspecified convulsions; R51 Headache; M54.30 Sciatica, unspecified side; E06.3 Autoimmune thyroiditis; D68.51 Activated protein C resistance; Z86.19 Personal history of other infectious and parasitic diseases; Z87.440 Personal history of urinary (tract) infections; Z79.899 Other long term (current) drug therapy
CPT/HCPCS: Q9967

== ENCOUNTER → 2017-12-25 | Outpatient (CLI) | payer OTHER ==
[2017-12-25 13:51] LABS: BASO # 0.1 10^3/uL (0.0-0.2); BASO % 1.1 % (0.0-1.0); EOS % 0.9 % (0.0-3.0); HEMATOCRIT 36.2 % (36.0-47.0); HEMOGLOBIN 11.7 g/dl (12.0-15.5); IMMATURE GRANULOCYTE % 0.2 % (0-3.0); LYMPH # 1.7 10^3/uL (1.5-4.5); LYMPH % 35.3 % (24.0-44.0); MEAN CORPUSCULAR HEMOGLOBIN 29.3 pg (27.0-33.0); MEAN CORPUSCULAR HGB CONC 32.3 g/dl (32.0-36.5); MEAN CORPUSCULAR VOLUME 90.7 fl (80.0-96.0); MONO # 0.5 10^3/uL (0.0-0.8); MONO % 9.8 % (0.0-5.0); NEUTROPHILS # 2.5 10^3/uL (1.8-7.7); NEUTROPHILS % 52.7 % (36.0-66.0); PLATELET COUNT, AUTOMATED 226 10^3/uL (150-450); RED BLOOD COUNT 3.99 10^6/uL (4.00-5.40); RED CELL DISTRIBUTION WIDTH 13.2 % (11.5-14.5); WHITE BLOOD COUNT 4.7 10^3/uL (4.0-10.0)
[2017-12-25 14:17] LABS: AST/SGOT 12 U/L (7-37); C REACTIVE PROTEIN QUANTITATIV < 0.30 MG/DL (0.00-0.30); COMPLEMENT C3 106 MG/DL (90-180); CREATININE FOR GFR 0.65 MG/DL (0.55-1.30); GLOMERULAR FILTRATION RATE > 60.0 (>60)
[2017-12-25 14:17] LABS: BLOOD UREA NITROGEN 8 MG/DL (7-18)
[2017-12-25 14:36] LABS: ERYTHROCYTE SEDIMENTATION RATE 10 mm/hr (0-20)
[2017-12-26 16:17] LABS: ANTI DOUBLE STRAND-DNA AB 3 IU/mL (0-9)
== END ==
LOC: M LAB 12:59
DX: M32.9 Systemic lupus erythematosus, unspecified (principal)
CPT/HCPCS: 84450

== ENCOUNTER 2018-01-15 16:08 | Emergency (ER) | payer OTHER | END 2018-01-15 17:51 | disposition home or self-care (01) | LOC: M ED 16:08 | DX: M51.17 Intervertebral disc disorders with radiculopathy, lumbosacral region (principal); Z88.5 Allergy status to narcotic agent; Z88.6 Allergy status to analgesic agent; Z88.2 Allergy status to sulfonamides; Z79.52 Long term (current) use of systemic steroids | CPT/HCPCS: 99283 ==

== ENCOUNTER → 2018-02-08 | Outpatient (CLI) | payer OTHER ==
[2018-02-08 18:11] LABS: ALBUMIN 3.7 GM/DL (3.2-5.2); ALBUMIN/GLOBULIN RATIO 1.09 (1.00-1.93); ALKALINE PHOSPHATASE 63 U/L (45-117); ALT/SGPT 19 U/L (12-78); ANION GAP 7 MEQ/L (8-16); AST/SGOT 13 U/L (7-37); BILIRUBIN,TOTAL 0.2 MG/DL (0.2-1.0); BLOOD UREA NITROGEN 11 MG/DL (7-18); CALCIUM LEVEL 8.4 MG/DL (8.5-10.1); CARBON DIOXIDE LEVEL 29 MEQ/L (21-32); CHLORIDE LEVEL 105 MEQ/L (98-107); CREATININE FOR GFR 0.68 MG/DL (0.55-1.30); FREE T4 0.79 NG/DL (0.76-1.46); GLOMERULAR FILTRATION RATE > 60.0 (>60); GLUCOSE, FASTING 82 MG/DL (70-100); MAGNESIUM LEVEL 2.3 MG/DL (1.8-2.4); SODIUM LEVEL 141 MEQ/L (136-145); TOTAL PROTEIN 7.1 GM/DL (6.4-8.2)
== END ==
LOC: M LAB 16:52
DX: R00.2 Palpitations (principal); E83.42 Hypomagnesemia; E06.3 Autoimmune thyroiditis
CPT/HCPCS: 83735

== ENCOUNTER → 2018-04-12 | Outpatient (CLI) | payer OTHER ==
[~2018-04-12] MED LIST changes: +ARAV1TAB; +BACT2CRE TOP; -FIRS1SOL3 PO; +FIRS50SO PO; +GABA-1171 PO; -GABA-279 PO; +MEDR4PAK PO; +NAPR-50 PO; +SOMA350T PO
[2018-04-12 17:00] LABS: FREE T4 0.78 NG/DL (0.76-1.46); THYROID STIMULATING HORMONE 2.97 uIU/ML (0.358-3.740)
== END ==
LOC: M LAB 15:48
PROVIDERS: ATTEND Internal Medicine Endocrinology, Diabetes & Metabolism
DX: E06.3 Autoimmune thyroiditis (principal)

== ENCOUNTER → 2018-06-07 | Outpatient (CLI) | payer OTHER ==
[~2018-06-07] MED LIST changes: -NAPR-50 PO; +NAPR-837 PO; +PRED-351 PO; -PRED10TA PO
--- NOTE | 2018-06-07 11:17 | REPMRS ---
Patient History The patient states she has not had a clinical breast exam in over a year. Family history of breast cancer at age 50 or over in maternal grandmother, breast cancer in maternal aunt. Benign lumpectomy of the right breast, 2009. Benign lumpectomy of the left breast, 2005. No Hormone Replacement Therapy 3D TOMOSYNTHESIS WAS PERFORMED. Digital Woman Screen Mammo: June 07, 2018 - Exam #: [id number] Bilateral CC and MLO view(s) were taken. Technologist: Rachel Marsh, Technologist Prior study comparison: May 19, 2017, digital mammo diagnostic bilateral, performed at [facility]. April 25, 2016, digital mammo diagnostic bilateral, performed at [facility]. FINDINGS: The breast tissue is heterogeneously dense. This may lower the sensitivity of mammography. There has been no change in the appearance of the mammogram from the prior studies. There is a moderate amount of residual fibroglandular tissue which is fairly symmetric. There is no interval development of dominant mass, areas of architectural distortion, or clustered microcalcification typical of malignancy. Assessment: BI-RADS/ACR category 1 mammogram. Negative Mammogram. Recommendation Routine screening mammogram in 1 year (for women over age 40). This mammogram was interpreted with the aid of an FDA-approved computer-aided dectection system. Electronically Signed By: Robbie Farris MD 06/07/18 [id number]
== END ==
LOC: M WHC 10:02
PROVIDERS: ATTEND Family Medicine
DX: Z12.31 Encounter for screening mammogram for malignant neoplasm of breast (principal)

== ENCOUNTER → 2018-06-17 | Outpatient (CLI) | payer OTHER ==
[~2018-06-17] MED LIST changes: +KETO10TAB PO; +PRED5SOL10 PO
--- NOTE | 2018-06-18 06:28 | REP ---
Clinical: Bilateral upper extremity pain and swelling . Technique: Farris scale and color Doppler evaluation using linear high frequency transducer. Findings: Ultrasound examination of the right and left upper extremity deep venous structures including jugular, subclavian, axillary, brachial, basilic, and cephalic veins demonstrate normal compressibility flow and wave patterns in response to respiration and augmentation. There is no evidence for deep venous thrombosis. Impression: No evidence for deep venous thrombosis involving the right or left upper extremities. Electronically Signed by James Topete MD 06/18/2018 06:19 A
== END ==
LOC: M RAD 12:06
PROVIDERS: ATTEND Internal Medicine Hematology & Oncology
DX: R22.33 Localized swelling, mass and lump, upper limb, bilateral (principal)

== ENCOUNTER 2018-06-19 00:32 | Emergency (ER) | payer OTHER ==
[~2018-06-19] VITALS: Ht 170.2 cm; Wt 70.5 kg
[~2018-06-19 00:32] MED LIST changes: -KETO10TAB PO
[2018-06-19 03:13] LABS: BASO % 0.7 % (0.0-1.0); EOS # 0.1 10^3/uL (0.0-0.50); EOS % 1.1 % (0.0-3.0); HEMATOCRIT 35.6 % (36.0-47.0); HEMOGLOBIN 11.8 g/dl (12.0-15.5); LYMPH % 35.7 % (24.0-44.0); MEAN CORPUSCULAR HEMOGLOBIN 29.8 pg (27.0-33.0); MEAN CORPUSCULAR HGB CONC 33.1 g/dl (32.0-36.5); MEAN CORPUSCULAR VOLUME 89.9 fl (80.0-96.0); MONO # 0.6 10^3/uL (0.0-0.8); MONO % 9.9 % (0.0-5.0); NEUTROPHILS # 2.9 10^3/uL (1.8-7.7); NEUTROPHILS % 52.4 % (36.0-66.0); PLATELET COUNT, AUTOMATED 220 10^3/uL (150-450); RED BLOOD COUNT 3.96 10^6/uL (4.00-5.40); WHITE BLOOD COUNT 5.5 10^3/uL (4.0-10.0)
[2018-06-19 03:24] LABS: BLOOD UREA NITROGEN 10 MG/DL (7-18); CALCIUM LEVEL 8.6 MG/DL (8.5-10.1); CARBON DIOXIDE LEVEL 29 MEQ/L (21-32); CHLORIDE LEVEL 106 MEQ/L (98-107); CREATININE FOR GFR 0.69 MG/DL (0.55-1.30); GLOMERULAR FILTRATION RATE > 60.0 (>58); GLUCOSE, FASTING 98 MG/DL (70-100); POTASSIUM SERUM 3.7 MEQ/L (3.5-5.1); SODIUM LEVEL 141 MEQ/L (136-145)
[2018-06-19] MEDS ORDERED: ISOVUE-370 76% 100ML VIAL (Q9967) As Ordered ONE (03:29)
[2018-06-19] MEDS ORDERED: KETOROLAC 30 MG/ML VIAL (J1885) IV ONE (03:30)
[2018-06-19 03:32] LABS: INR 0.87; PROTHROMBIN TIME 11.9 SECONDS (12.1-14.4)
[2018-06-19 03:33] LABS: PARTIAL THROMBOPLASTIN TIME 27.3 SECONDS (25.4-37.6)
--- NOTE | 2018-06-19 04:43 | REPVR ---
EXAM: CT Angiography Chest With Contrast EXAM DATE/TIME: 06/19/2018 3:27 AM CLINICAL HISTORY: 38 years old, female; Pain; Chest pain; Type not specified; Additional info: Cp TECHNIQUE: Imaging protocol: Axial computed tomographic angiography images of the chest with intravenous contrast using CT angiography protocol. Coronal and sagittal reformatted images were created and reviewed. 3D rendering: MIP reconstructed images were created and reviewed. Radiation optimization: All CT scans at this facility use at least one of these dose optimization techniques: automated exposure control; mA and/or kV adjustment per patient size (includes targeted exams where dose is matched to clinical indication); or iterative reconstruction. Contrast material: iso Contrast volume: 75 ml Contrast route: ac COMPARISON: CT ANGIO CHEST 11/20/2017 1:07 PM FINDINGS: Pulmonary arteries: The pulmonary arteries are not enlarged. No filling defects are seen to indicate an acute pulmonary embolism. Aorta: There is no thoracic aortic aneurysm or evidence of dissection. Lungs: Small reticular densities in the dependent portions of the bilateral lower lobes are likely due to subsegmental atelectasis.There is no significant consolidation. There is a stable 3 mm dense nodule abutting the fissure posteriorly in the left upper lobe (image 25 of series 402). There is a stable 3 mm calcified granuloma in the right upper lobe (image 45). No followup needed. Pleural space: There are no pleural effusions present. No pneumothorax is seen. Heart: The heart is normal in size. Mediastinum: There is minimal soft tissue density in the anterior superior mediastinum, consistent with residual thymic tissue. Upper abdomen: The visualized upper abdomen structures are unremarkable. Lymph nodes: No lymphadenopathy is seen. Bones/joints: No suspicious osseous lesions. No acute fractures or dislocations. Soft tissues: Unremarkable. IMPRESSION: No evidence of acute pulmonary embolism. Electronically signed by: Carina Churchill On 06/19/2018 04:43:16 AM
[2018-06-19] MEDS ORDERED: KETO10TAB PO (05:30)
[2018-06-19 05:58] VITALS: BP 145/76
--- NOTE | 2018-06-19 06:28 | ECGEPIP ---
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
--- NOTE | 2018-06-19 08:02 | REP ---
Chest x-ray: Two views. History: Chest pain . Comparison study: November 20, 2017 . Findings: EKG monitoring electrodes are seen overlying the chest. The lungs are well inflated and free of infiltrate. The pleural angles are sharp. The heart size is normal. Pulmonary vasculature is not increased. No significant bony abnormality is seen. Impression: Negative chest x-ray. Electronically Signed by Marco Rose MD 06/19/2018 07:54 A
== END 2018-06-19 06:00 | disposition home or self-care (01) ==
LOC: M ED 00:32
DX: R07.89 Other chest pain (principal); M32.9 Systemic lupus erythematosus, unspecified; D68.59 Other primary thrombophilia; G89.29 Other chronic pain; M54.9 Dorsalgia, unspecified; Z87.891 Personal history of nicotine dependence; Z79.899 Other long term (current) drug therapy; Z88.2 Allergy status to sulfonamides; Z88.5 Allergy status to narcotic agent; Z88.8 Allergy status to other drugs, medicaments and biological substances; Z91.018 Allergy to other foods
CPT/HCPCS: 71046; 71275; 80048; 85025; 85610; 85730; 93005; 96374; 99284; J1885; Q9967

== ENCOUNTER → 2018-08-05 | Outpatient (CLI) | payer OTHER ==
[~2018-08-05] MED LIST changes: +KETO10TAB PO
[2018-08-05 14:23] LABS: FREE T4 0.82 NG/DL (0.76-1.46); THYROID STIMULATING HORMONE 2.21 uIU/ML (0.358-3.740)
== END ==
LOC: M LAB 12:05
PROVIDERS: ATTEND Internal Medicine Endocrinology, Diabetes & Metabolism
DX: E06.3 Autoimmune thyroiditis (principal)

== ENCOUNTER → 2018-08-12 | Outpatient (REF) | payer OTHER | LOC: M LAB REF 14:49 | PROVIDERS: ATTEND Internal Medicine Endocrinology, Diabetes & Metabolism | DX: E04.2 Nontoxic multinodular goiter (principal) ==

== ENCOUNTER → 2018-09-22 | Outpatient (REF) | payer OTHER ==
[2018-09-22 13:01] LABS: BLOOD UREA NITROGEN 10 MG/DL (7-18); CALCIUM LEVEL 9.5 MG/DL (8.5-10.1); CARBON DIOXIDE LEVEL 30 MEQ/L (21-32); CHLORIDE LEVEL 105 MEQ/L (98-107); CREATININE FOR GFR 0.72 MG/DL (0.55-1.30); FERRITIN 10 NG/ML (8-252); GLOMERULAR FILTRATION RATE > 60.0 (>58); GLUCOSE, FASTING 82 MG/DL (70-100); MAGNESIUM LEVEL 2.3 MG/DL (1.8-2.4); POTASSIUM SERUM 4.1 MEQ/L (3.5-5.1); SODIUM LEVEL 140 MEQ/L (136-145)
== END ==
LOC: M SFHCPLAZ 10:06
PROVIDERS: ATTEND Family Medicine
DX: G47.62 Sleep related leg cramps (principal); E83.42 Hypomagnesemia

== ENCOUNTER → 2018-10-13 | Outpatient (CLI) | payer OTHER ==
[~2018-10-13] MED LIST changes: -METH4TAB28 PO; +METH4TAB8 PO
== END ==
LOC: M LAB 08:06
PROVIDERS: ATTEND Family Medicine
DX: R53.82 Chronic fatigue, unspecified (principal); Z79.52 Long term (current) use of systemic steroids

== ENCOUNTER → 2018-11-10 | Outpatient (CLI) | payer OTHER ==
--- NOTE | 2018-11-10 16:00 | REP ---
Clinical: Sprain. Technique: AP, lateral, bilateral oblique views of the right ankle. Findings: Moderate lateral soft tissue swelling consistent with inversion injury. No obvious acute fracture or dislocation. Ankle mortise intact. Impression: Lateral swelling consist with inversion injury. Electronically Signed by James Topete MD 11/10/2018 03:50 P
== END ==
LOC: M RAD 15:28
PROVIDERS: ATTEND Family Medicine
DX: S93.411A Sprain of calcaneofibular ligament of right ankle, initial encounter (principal); X58.XXXA Exposure to other specified factors, initial encounter; Y92.89 Other specified places as the place of occurrence of the external cause

== ENCOUNTER → 2019-01-11 | Outpatient (REF) | payer OTHER ==
[~2019-01-11] MED LIST changes: +METH4TAB28 PO; -METH4TAB8 PO
== END ==
LOC: M LAB REF 17:16
PROVIDERS: ATTEND Internal Medicine Endocrinology, Diabetes & Metabolism
DX: E06.3 Autoimmune thyroiditis (principal)

== ENCOUNTER → 2019-01-27 | Outpatient (CLI) | payer OTHER ==
[2019-01-27 09:51] LABS: BASO % 1.1 % (0.0-1.0); EOS % 1.1 % (0.0-3.0); HEMATOCRIT 38.2 % (36.0-47.0); HEMOGLOBIN 12.3 g/dl (12.0-15.5); LYMPH # 1.4 10^3/uL (1.5-5.0); LYMPH % 35.9 % (24.0-44.0); MEAN CORPUSCULAR HEMOGLOBIN 29.5 pg (27.0-33.0); MEAN CORPUSCULAR HGB CONC 32.2 g/dl (32.0-36.5); MEAN CORPUSCULAR VOLUME 91.6 fl (80.0-96.0); MONO # 0.4 10^3/uL (0.0-0.8); MONO % 10.4 % (0.0-5.0); NEUTROPHILS # 1.9 10^3/uL (1.5-8.5); NEUTROPHILS % 51.5 % (36.0-66.0); PLATELET COUNT, AUTOMATED 247 10^3/uL (150-450); RED BLOOD COUNT 4.17 10^6/uL (4.00-5.40); WHITE BLOOD COUNT 3.8 10^3/uL (4.0-10.0)
[2019-01-27 10:16] LABS: ERYTHROCYTE SEDIMENTATION RATE 9 mm/hr (0-20)
[2019-01-27 10:33] LABS: ALBUMIN 3.8 GM/DL (3.2-5.2); ALT/SGPT 18 U/L (12-78); BILIRUBIN,TOTAL 0.3 MG/DL (0.2-1.0); BLOOD UREA NITROGEN 9 MG/DL (7-18); C REACTIVE PROTEIN QUANTITATIV < 0.30 MG/DL (0.00-0.30); CALCIUM LEVEL 8.8 MG/DL (8.5-10.1); CARBON DIOXIDE LEVEL 30 MEQ/L (21-32); CHLORIDE LEVEL 106 MEQ/L (98-107); CREATININE FOR GFR 0.76 MG/DL (0.55-1.30); FREE T4 0.83 NG/DL (0.76-1.46); GLOMERULAR FILTRATION RATE > 60.0 (>58); GLUCOSE, FASTING 81 MG/DL (70-100); POTASSIUM SERUM 4.1 MEQ/L (3.5-5.1); SODIUM LEVEL 140 MEQ/L (136-145); TOTAL PROTEIN 7.1 GM/DL (6.4-8.2)
== END ==
LOC: M LAB 09:15
PROVIDERS: ATTEND Family Medicine
DX: R19.7 Diarrhea, unspecified (principal); R42 Dizziness and giddiness; R23.2 Flushing

== ENCOUNTER → 2019-03-30 | Outpatient (CLI) | payer OTHER ==
[~2019-03-30] MED LIST changes: -METH4TAB28 PO; +METH4TAB8 PO
[2019-03-30 12:02] LABS: BASO # 0.1 10^3/uL (0.0-0.2); BASO % 1.1 % (0.0-1.0); EOS % 0.5 % (0.0-3.0); HEMATOCRIT 41.6 % (36.0-47.0); HEMOGLOBIN 13.4 g/dl (12.0-15.5); LYMPH # 1.8 10^3/uL (1.5-5.0); LYMPH % 24.7 % (24.0-44.0); MEAN CORPUSCULAR HEMOGLOBIN 29.6 pg (27.0-33.0); MEAN CORPUSCULAR HGB CONC 32.2 g/dl (32.0-36.5); MEAN CORPUSCULAR VOLUME 91.8 fl (80.0-96.0); MONO # 0.6 10^3/uL (0.0-0.8); MONO % 7.9 % (0.0-5.0); NEUTROPHILS # 4.8 10^3/uL (1.5-8.5); NEUTROPHILS % 65.4 % (36.0-66.0); PLATELET COUNT, AUTOMATED 284 10^3/uL (150-450); RED BLOOD COUNT 4.53 10^6/uL (4.00-5.40); WHITE BLOOD COUNT 7.3 10^3/uL (4.0-10.0)
[2019-03-30 12:30] LABS: BLOOD UREA NITROGEN 12 MG/DL (7-18); C REACTIVE PROTEIN QUANTITATIV < 0.30 MG/DL (0.00-0.30); CALCIUM LEVEL 9.1 MG/DL (8.5-10.1); CARBON DIOXIDE LEVEL 32 MEQ/L (21-32); CHLORIDE LEVEL 103 MEQ/L (98-107); GLOMERULAR FILTRATION RATE > 60.0 (>58); GLUCOSE, FASTING 88 MG/DL (70-100); POTASSIUM SERUM 4.4 MEQ/L (3.5-5.1); SODIUM LEVEL 138 MEQ/L (136-145)
[2019-03-30 12:54] LABS: ERYTHROCYTE SEDIMENTATION RATE 7 mm/hr (0-20)
== END ==
LOC: M LAB 11:11
PROVIDERS: ATTEND Family Medicine
DX: Z01.818 Encounter for other preprocedural examination (principal)

== ENCOUNTER → 2019-05-01 | Outpatient (CLI) | payer OTHER ==
[~2019-05-01] MED LIST changes: +CALC500T68 PO; +SYNT112T2 PO
[2019-05-01 11:56] LABS: BASO # 0.1 10^3/uL (0.0-0.2); BASO % 1.1 % (0.0-1.0); EOS # 0.1 10^3/uL (0.0-0.5); EOS % 1.1 % (0.0-3.0); HEMATOCRIT 37.9 % (36.0-47.0); HEMOGLOBIN 12.3 g/dl (12.0-15.5); LYMPH # 1.7 10^3/uL (1.5-5.0); LYMPH % 38.1 % (24.0-44.0); MEAN CORPUSCULAR HEMOGLOBIN 29.7 pg (27.0-33.0); MEAN CORPUSCULAR HGB CONC 32.5 g/dl (32.0-36.5); MEAN CORPUSCULAR VOLUME 91.5 fl (80.0-96.0); MONO # 0.5 10^3/uL (0.0-0.8); NEUTROPHILS # 2.2 10^3/uL (1.5-8.5); NEUTROPHILS % 49.5 % (36.0-66.0); PLATELET COUNT, AUTOMATED 255 10^3/uL (150-450); RED BLOOD COUNT 4.14 10^6/uL (4.00-5.40); WHITE BLOOD COUNT 4.5 10^3/uL (4.0-10.0)
== END ==
LOC: M LAB 11:36
PROVIDERS: ATTEND Physician Assistant
DX: M32.10 Systemic lupus erythematosus, organ or system involvement unspecified (principal)

== ENCOUNTER → 2019-05-05 | Outpatient (REF) | payer OTHER ==
[2019-05-05 14:00] LABS: BLOOD UREA NITROGEN 7 MG/DL (7-18); CALCIUM LEVEL 8.9 MG/DL (8.5-10.1); CARBON DIOXIDE LEVEL 31 MEQ/L (21-32); CHLORIDE LEVEL 106 MEQ/L (98-107); CREATININE FOR GFR 0.68 MG/DL (0.55-1.30); FREE T4 1.07 NG/DL (0.76-1.46); GLOMERULAR FILTRATION RATE > 60.0 (>58); GLUCOSE, FASTING 82 MG/DL (70-100); POTASSIUM SERUM 3.8 MEQ/L (3.5-5.1); SODIUM LEVEL 139 MEQ/L (136-145)
[2019-05-06 07:43] LABS: THYROGLOBULIN ANTIBODY 196.3 U/ML (<60.0)
== END ==
LOC: M LABDRAW1 13:24
PROVIDERS: ATTEND Nurse Practitioner Family
DX: C73 Malignant neoplasm of thyroid gland (principal); E89.0 Postprocedural hypothyroidism

== ENCOUNTER → 2019-05-12 | Outpatient (REF) | payer OTHER ==
[2019-05-12 17:18] LABS: BASO % 0.6 % (0.0-1.0); EOS % 0.6 % (0.0-3.0); HEMATOCRIT 39.6 % (36.0-47.0); HEMOGLOBIN 12.9 g/dl (12.0-15.5); LYMPH # 1.8 10^3/uL (1.5-5.0); LYMPH % 29.3 % (24.0-44.0); MEAN CORPUSCULAR HEMOGLOBIN 29.9 pg (27.0-33.0); MEAN CORPUSCULAR HGB CONC 32.6 g/dl (32.0-36.5); MEAN CORPUSCULAR VOLUME 91.7 fl (80.0-96.0); MONO # 0.5 10^3/uL (0.0-0.8); MONO % 8.1 % (0.0-5.0); NEUTROPHILS # 3.8 10^3/uL (1.5-8.5); NEUTROPHILS % 60.4 % (36.0-66.0); PLATELET COUNT, AUTOMATED 241 10^3/uL (150-450); RED BLOOD COUNT 4.32 10^6/uL (4.00-5.40); WHITE BLOOD COUNT 6.3 10^3/uL (4.0-10.0)
[2019-05-12 17:28] LABS: ALBUMIN 4.3 GM/DL (3.2-5.2); ALT/SGPT 21 U/L (12-78); BILIRUBIN,TOTAL 0.3 MG/DL (0.2-1.0); BLOOD UREA NITROGEN 6 MG/DL (7-18); CALCIUM LEVEL 8.8 MG/DL (8.5-10.1); CARBON DIOXIDE LEVEL 31 MEQ/L (21-32); CHLORIDE LEVEL 105 MEQ/L (98-107); CPK CREATINE PHOSPHOKINASE 57 U/L (26-192); CREATININE FOR GFR 0.69 MG/DL (0.55-1.30); GLOMERULAR FILTRATION RATE > 60.0 (>58); GLUCOSE, FASTING 85 MG/DL (70-100); POTASSIUM SERUM 3.8 MEQ/L (3.5-5.1); SODIUM LEVEL 139 MEQ/L (136-145); TOTAL PROTEIN 7.4 GM/DL (6.4-8.2)
[2019-05-12 17:29] LABS: TOTAL 25(OH) VITAMIN D 16.3 NG/ML (30.0-100.0)
== END ==
LOC: M SFHCPLAZ 14:38
PROVIDERS: ATTEND Family Medicine
DX: R42 Dizziness and giddiness (principal); M79.10 Myalgia, unspecified site; E55.9 Vitamin D deficiency, unspecified

== ENCOUNTER → 2019-06-16 | Outpatient (CLI) | payer OTHER ==
--- NOTE | 2019-06-16 10:35 | REP ---
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 Assess for lymphadenopathy. In the central neck, there is no adenopathy or abnormal solid nodule. The paratracheal and paraesophageal regions in the postoperative thyroid bed are normal. In the right lateral neck, there is a single peripherally hypoechoic centrally echogenic nodule which measures 1.2 x 0.3 x 0.8 cm consistent with a benign lymph node. In the left lateral neck, there are two nodules each having peripheral decreased echoes and central increased echoes consistent with benign lymph nodes, one measures 1.1 x 0.6 x 1.4 cm and the other measures 1.1 x 0.8 x 1.5 cm. The technologist incidentally noted a normal appearing lymph node in the submental region. IMPRESSION: Negative post thyroidectomy neck ultrasound as described above. This examination shows no evidence of recurrent disease.
== END ==
LOC: M WHC 09:27
PROVIDERS: ATTEND Family Medicine
DX: C73 Malignant neoplasm of thyroid gland (principal)

== ENCOUNTER → 2019-07-07 | Outpatient (CLI) | payer OTHER ==
--- NOTE | 2019-07-07 23:10 | REP ---
CHEST, TWO VIEWS: There is no evidence of acute infiltrate. No pleural effusion is seen. The heart is normal in size. The mediastinal silhouette is unremarkable. The visualized osseous structures are intact. IMPRESSION: No acute pulmonary disease. Electronically Signed by Robbie Farris MD 07/08/2019 09:33 A
== END ==
LOC: M RAD 17:53
PROVIDERS: ATTEND Physician Assistant
DX: R07.1 Chest pain on breathing (principal)

== ENCOUNTER → 2019-07-14 | Outpatient (CLI) | payer OTHER ==
[2019-07-14 16:50] LABS: BASO # 0.1 10^3/uL (0.0-0.2); EOS # 0.1 10^3/uL (0.0-0.5); HEMATOCRIT 37.2 % (36.0-47.0); HEMOGLOBIN 12.4 g/dl (12.0-15.5); LYMPH # 1.4 10^3/uL (1.5-5.0); LYMPH % 22.5 % (24.0-44.0); MEAN CORPUSCULAR HEMOGLOBIN 30.2 pg (27.0-33.0); MEAN CORPUSCULAR HGB CONC 33.3 g/dl (32.0-36.5); MEAN CORPUSCULAR VOLUME 90.5 fl (80.0-96.0); MONO # 0.5 10^3/uL (0.0-0.8); MONO % 7.7 % (0.0-5.0); NEUTROPHILS # 4.2 10^3/uL (1.5-8.5); NEUTROPHILS % 67.5 % (36.0-66.0); PLATELET COUNT, AUTOMATED 230 10^3/uL (150-450); RED BLOOD COUNT 4.11 10^6/uL (4.00-5.40); WHITE BLOOD COUNT 6.2 10^3/uL (4.0-10.0)
[2019-07-14 17:15] LABS: ALBUMIN 3.8 GM/DL (3.2-5.2); ALT/SGPT 21 U/L (12-78); C REACTIVE PROTEIN QUANTITATIV 0.43 MG/DL (0.00-0.30); COMPLEMENT C4 25 MG/DL (10-40); CREATININE FOR GFR 0.63 MG/DL (0.55-1.30); GLOMERULAR FILTRATION RATE > 60.0 (>58)
[2019-07-14 17:29] LABS: ERYTHROCYTE SEDIMENTATION RATE 15 mm/hr (0-20)
== END ==
LOC: M LAB 16:18
PROVIDERS: ATTEND Physician Assistant
DX: M32.9 Systemic lupus erythematosus, unspecified (principal)

== ENCOUNTER → 2019-07-22 | Outpatient (CLI) | payer OTHER ==
--- NOTE | 2019-07-22 17:55 | REP ---
Clinical: Right axillary pain and swelling. Technique: Real time addison scale and color evaluation using linear high frequency transducer. Findings: Ultrasound examination of the right axillary region demonstrates normal subcutaneous tissues and few scattered normal appearing lymph nodes measuring up to 16 x 6 x 9 mm. No fluid collection or mass lesion. Impression: Normal examination.
--- NOTE | 2019-07-25 12:18 | REP ---
DIGITAL DIAGNOSTIC BILATERAL MAMMOGRAPHY WITH CAD, 3D TOMOGRAPHY, AND FOCUSED RIGHT BREAST AND RIGHT AXILLARY ULTRASOUND: HISTORY: Right breast pain and right axillary swelling. History of prior benign lumpectomies in the right breast in 2008 and the left breast in 2005. Comparison mammography is from June 07, 2018, May 19, 2017. MAMMOGRAPHIC FINDINGS: Breast parenchyma is heterogeneously dense in a pattern which may inhibit the sensitivity of mammography. The Volpara volumetric breast density category is: C. No dominant density is seen. No architectural distortion is observed. No mass or microcalcification is observed. Findings are unchanged from comparison mammography. SONOGRAPHIC FINDINGS: Right lateral and axillary region were examined sonographically regarding the patient's symptoms of pain and fullness. Heterogeneous fibroglandular background echotexture is seen. No suspicious finding is seen. In the axilla, a normal appearing lymph node with a thin cortical margin around echogenic fatty hilar architecture is seen measuring 1.6 x 0.6 x 0.9 cm. No suspicious sonographic finding. IMPRESSION: BIRADS 2: BI-RADS/ACR category 2 mammogram. Benign Findings. BI-RADS category 2 benign findings. Clinical followup is advised. This mammogram was interpreted with the aid of an FDA-approved computer-aided detection system. The patient states she had a clinical breast exam in July 2019. The patient letter being requested is M#2 dense. Repeat screening mammography recommended 1 year. This patient's estimated Tyrer-Cuzick lifetime risk assessment for breast cancer is 16.0%.
== END ==
LOC: M WHC 14:33
PROVIDERS: ATTEND Family Medicine
DX: N64.4 Mastodynia (principal); M79.89 Other specified soft tissue disorders
CPT/HCPCS: 76882; 77066; G0279

== ENCOUNTER → 2019-08-05 | Outpatient (CLI) | payer OTHER ==
[2019-08-05 14:43] LABS: FREE T4 1.53 NG/DL (0.76-1.46); THYROID STIMULATING HORMONE 0.229 uIU/ML (0.358-3.740)
[2019-08-05 14:46] LABS: THYROGLOBULIN ANTIBODY 101.1 U/ML (<60.0)
[2019-08-14 12:07] LABS: THYROGLOBULIN RIA 2.9 ng/mL (.)
== END ==
LOC: M LAB 13:06
PROVIDERS: ATTEND Internal Medicine Endocrinology, Diabetes & Metabolism
DX: C73 Malignant neoplasm of thyroid gland (principal)

== ENCOUNTER 2019-09-08 19:30 | Emergency (ER) | payer OTHER ==
[~2019-09-08] VITALS: Ht 170.2 cm; Wt 73.2 kg
--- NOTE | 2019-09-08 20:02 | REP ---
Clinical: Acute chest pain . Comparison: 07/07/2019 . Findings: The mediastinum and cardiac silhouette are stable and within normal limits for portable technique. The lung thacker are clear without acute consolidation, effusion, or pneumothorax. Skeletal structures are intact. Impression: No acute cardiopulmonary process appreciated. Electronically Signed by James Topete MD 09/08/2019 07:54 P
[2019-09-08 20:03] LABS: BASO % 0.5 % (0.0-1.0); EOS % 0.5 % (0.0-3.0); HEMATOCRIT 36.7 % (36.0-47.0); HEMOGLOBIN 11.8 g/dl (12.0-15.5); LYMPH # 1.7 10^3/uL (1.5-5.0); LYMPH % 21.2 % (24.0-44.0); MEAN CORPUSCULAR HEMOGLOBIN 29.7 pg (27.0-33.0); MEAN CORPUSCULAR HGB CONC 32.2 g/dl (32.0-36.5); MEAN CORPUSCULAR VOLUME 92.4 fl (80.0-96.0); MONO # 0.6 10^3/uL (0.0-0.8); MONO % 7.7 % (0.0-5.0); NEUTROPHILS # 5.4 10^3/uL (1.5-8.5); NEUTROPHILS % 69.8 % (36.0-66.0); PLATELET COUNT, AUTOMATED 213 10^3/uL (150-450); RED BLOOD COUNT 3.97 10^6/uL (4.00-5.40); WHITE BLOOD COUNT 7.8 10^3/uL (4.0-10.0)
[2019-09-08] MEDS ORDERED: ISOVUE-370 76% 100ML VIAL As Ordered ONE (20:13)
[2019-09-08 20:24] LABS: INR 0.95; PROTHROMBIN TIME 12.4 SECONDS (11.8-14.0)
[2019-09-08 20:30] VITALS: BP 118/77
[2019-09-08 20:38] LABS: ALBUMIN 3.9 GM/DL (3.2-5.2); ALT/SGPT 21 U/L (12-78); BILIRUBIN,DIRECT < 0.1 MG/DL (0.0-0.2); BILIRUBIN,TOTAL 0.1 MG/DL (0.2-1.0); CK-MB VALUE MASS < 1.0 NG/ML (<3.6); CPK CREATINE PHOSPHOKINASE 79 U/L (26-192); FREE T4 1.04 NG/DL (0.76-1.46); LIPASE 44 U/L (73-393); MB/CK RELATIVE INDEX 1.27 (< OR =4); THYROID STIMULATING HORMONE 0.468 uIU/ML (0.358-3.740); TOTAL PROTEIN 7.2 GM/DL (6.4-8.2); TROPONIN I < 0.02 NG/ML (< 0.10)
--- NOTE | 2019-09-08 21:13 | REPVR ---
PROCEDURE INFORMATION: Exam: CT Neck With Contrast Exam date and time: 09/08/2019 8:59 PM Age: 39 years old Clinical indication: Mass, lump, or swelling in neck; Additional info: Chest pain/neck fullness/cancer TECHNIQUE: Imaging protocol: Computed tomography images of the neck with intravenous contrast. Radiation optimization: All CT scans at this facility use at least one of these dose optimization techniques: automated exposure control; mA and/or kV adjustment per patient size (includes targeted exams where dose is matched to clinical indication); or iterative reconstruction. Contrast material: ISOVUE 370; Contrast volume: 100 ml; Contrast route: INTRAVENOUS (IV); COMPARISON: CT Neck with contrast 09/02/2016 12:31 PM FINDINGS: Nasopharynx: Unremarkable. Oropharynx: Unremarkable. No significant tonsillar enlargement. Hypopharynx: Unremarkable. Larynx: Unremarkable. Normal epiglottis. Retropharyngeal space: Unremarkable. Submandibular/Parotid glands: Normal. Glands are normal in size. Thyroid: Normal. No enlarged or calcified nodules. Lymph nodes: Unremarkable. No lymphadenopathy. Trachea: Visualized trachea is unremarkable. Lungs: Unremarkable as visualized. Bones/joints: Unremarkable. No acute fracture. Soft tissues: Unremarkable. No significant soft tissue swelling. IMPRESSION: No acute findings. Electronically signed by: Lee Mcgee On 09/08/2019 21:13:08 PM
--- NOTE | 2019-09-08 21:20 | REPVR ---
PROCEDURE INFORMATION: Exam: CT Angiography Chest with Contrast Exam date and time: 09/08/19 (8:45pm) Age: 39 years old Clinical indication: Chest pain. Cancer. TECHNIQUE: Imaging protocol: Computed tomographic angiography of the chest with intravenous contrast. 3D rendering: MIP and/or 3D reconstructed images were created by the technologist. Radiation optimization: All CT scans at this facility use at least one of these dose optimization techniques: automated exposure control; mA and/or kV adjustment per patient size (includes targeted exams where dose is matched to clinical indication); or iterative reconstruction. Contrast material: Isovue 370 Contrast volume: 100 ml Contrast route: IV COMPARISON: CTA CHEST of 06/19/18 FINDINGS: Pulmonary arteries: Normal. No pulmonary emboli. Aorta: Unremarkable. No aortic aneurysm. No aortic dissection. Lungs: Unremarkable. No consolidation. No masses. Pleural space: Unremarkable. No pneumothorax. No pleural effusions. Heart: Unremarkable. No cardiomegaly. No pericardial effusion. Lymph nodes: Unremarkable. No enlarged lymph nodes. Bones/joints: Unremarkable. No acute fracture. Soft tissues: Unremarkable. Upper abdomen: Possible left parapelvic renal cyst (1.7 cm size) (partially imaged). IMPRESSION: No acute findings. No filling defects suspicious for pulmonary emboli are seen. There is no CT evidence of aortic dissection nor leakage. No aortic aneurysm is appreciated. No lung masses. No pleural effusions. Electronically signed by: Starr Aranda On 09/08/2019 21:20:07 PM
--- NOTE | 2019-09-09 00:53 | ECGEPIP ---
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
== END 2019-09-08 22:06 | disposition home or self-care (01) ==
LOC: M ED 19:30
DX: R20.8 Other disturbances of skin sensation (principal); F17.200 Nicotine dependence, unspecified, uncomplicated; Z79.899 Other long term (current) drug therapy; Z88.6 Allergy status to analgesic agent; Z88.2 Allergy status to sulfonamides; Z91.018 Allergy to other foods
CPT/HCPCS: 70491; 71045; 71275; 80047; 80076; 82550; 82553; 83690; 84439; 84443; 85025; 85610; 93005; 93041; 94760; 99284; Q9967

== ENCOUNTER → 2019-09-22 | Outpatient (CLI) | payer OTHER ==
[2019-09-22 16:35] LABS: FREE T4 1.14 NG/DL (0.76-1.46); THYROID STIMULATING HORMONE 1.43 uIU/ML (0.358-3.740)
[2019-09-22 16:45] LABS: CORTISOL PM 13.8 UG/DL (3.1-16.7); ESTRADIOL 67.6 PG/ML; FOLLICLE STIMULATING HORMONE 5.5 mIU/mL; PROLACTIN 9.8 NG/ML
[2019-09-23 11:09] LABS: THYROGLOBULIN ANTIBODY 75.3 U/ML (<60.0)
[2019-09-26 14:08] LABS: ADRENOCORTICOTROPHIC HORMONE 14.5 pg/mL (7.2-63.3); HUMAN GROWTH HORMONE 0.1 ng/mL (0.0-10.0)
== END ==
LOC: M LAB 15:05
PROVIDERS: ATTEND Internal Medicine
DX: E89.0 Postprocedural hypothyroidism (principal); C73 Malignant neoplasm of thyroid gland

== ENCOUNTER 2019-10-23 15:00 | Emergency (ER) | payer OTHER ==
[~2019-10-23 15:00] MED LIST changes: +ACETAMINOPHEN 325 MG TAB As Ordered ONE; +ACETAMINOPHEN 325 MG TAB ONE; +ONDANSETRON 4 MG ORAL DISINTEGRATING TAB As Ordered ONE; +ONDANSETRON 4 MG ORAL DISINTEGRATING TAB ONE
== END 2019-10-23 16:00 | disposition home or self-care (01) ==
LOC: M ED 15:00
DX: S16.1XXA Strain of muscle, fascia and tendon at neck level, initial encounter (principal); M54.5 Low back pain; M25.561 Pain in right knee; M25.562 Pain in left knee; V49.50XA Passenger injured in collision with unspecified motor vehicles in traffic accident, initial encounter; M43.16 Spondylolisthesis, lumbar region; F17.210 Nicotine dependence, cigarettes, uncomplicated; Z79.899 Other long term (current) drug therapy
CPT/HCPCS: 72125; 72131; 73564; 99283; Q0162

== ENCOUNTER → 2019-11-09 | Outpatient (CLI) | payer OTHER ==
[~2019-11-09] MED LIST changes: -ACETAMINOPHEN 325 MG TAB As Ordered ONE; -ACETAMINOPHEN 325 MG TAB ONE; -ONDANSETRON 4 MG ORAL DISINTEGRATING TAB As Ordered ONE; -ONDANSETRON 4 MG ORAL DISINTEGRATING TAB ONE
[2019-11-09 15:27] LABS: FREE T4 1.07 NG/DL (0.76-1.46); THYROID STIMULATING HORMONE 4.13 uIU/ML (0.358-3.740)
[2019-11-23 03:07] LABS: THRYOGLOBULIN ANTIBODIES (ATA) 4.5 IU/mL (0.0-0.9); THYROGLOBULIN RIA 2.3 ng/mL (.)
== END ==
LOC: M LAB 11:39
PROVIDERS: ATTEND Internal Medicine
DX: C73 Malignant neoplasm of thyroid gland (principal); E89.0 Postprocedural hypothyroidism

== ENCOUNTER → 2019-12-30 | Outpatient (CLI) | payer OTHER ==
[2019-12-30 18:53] LABS: BASO # 0.1 10^3/uL (0.0-0.2); BASO % 0.8 % (0.0-1.0); EOS % 0.3 % (0.0-3.0); HEMATOCRIT 36.7 % (36.0-47.0); HEMOGLOBIN 12.1 g/dl (12.0-15.5); LYMPH # 1.6 10^3/uL (1.5-5.0); LYMPH % 20.9 % (24.0-44.0); MEAN CORPUSCULAR VOLUME 90.8 fl (80.0-96.0); MONO # 0.6 10^3/uL (0.0-0.8); MONO % 7.9 % (0.0-5.0); NEUTROPHILS # 5.2 10^3/uL (1.5-8.5); NEUTROPHILS % 69.6 % (36.0-66.0); PLATELET COUNT, AUTOMATED 216 10^3/uL (150-450); RED BLOOD COUNT 4.04 10^6/uL (4.00-5.40); WHITE BLOOD COUNT 7.5 10^3/uL (4.0-10.0)
[2019-12-30 19:56] LABS: ERYTHROCYTE SEDIMENTATION RATE 22 mm/hr (0-20)
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
== END ==
LOC: M RAD 17:57
PROVIDERS: ATTEND Physician Assistant
DX: S39.012D Strain of muscle, fascia and tendon of lower back, subsequent encounter (principal); S32.010D Wedge compression fracture of first lumbar vertebra, subsequent encounter for fracture with routine healing

== ENCOUNTER → 2019-12-30 | Outpatient (CLI) | payer OTHER ==
[2019-12-30 19:28] LABS: FREE T4 1.28 NG/DL (0.76-1.46); THYROID STIMULATING HORMONE 0.449 uIU/ML (0.358-3.740)
== END ==
LOC: M LAB 18:01
PROVIDERS: ATTEND Internal Medicine
DX: C73 Malignant neoplasm of thyroid gland (principal); E89.0 Postprocedural hypothyroidism

== ENCOUNTER → 2020-01-04 | Outpatient (REF) | payer OTHER ==
[2020-01-04 13:30] LABS: BASO % 0.6 % (0.0-1.0); EOS % 0.6 % (0.0-3.0); HEMATOCRIT 38.9 % (36.0-47.0); HEMOGLOBIN 12.7 g/dl (12.0-15.5); LYMPH # 1.4 10^3/uL (1.5-5.0); LYMPH % 25.8 % (24.0-44.0); MEAN CORPUSCULAR HEMOGLOBIN 29.5 pg (27.0-33.0); MEAN CORPUSCULAR HGB CONC 32.6 g/dl (32.0-36.5); MEAN CORPUSCULAR VOLUME 90.5 fl (80.0-96.0); MONO # 0.5 10^3/uL (0.0-0.8); MONO % 9.6 % (0.0-5.0); NEUTROPHILS # 3.4 10^3/uL (1.5-8.5); NEUTROPHILS % 62.8 % (36.0-66.0); PLATELET COUNT, AUTOMATED 208 10^3/uL (150-450); WHITE BLOOD COUNT 5.4 10^3/uL (4.0-10.0)
[2020-01-04 13:45] LABS: C REACTIVE PROTEIN QUANTITATIV 0.34 MG/DL (0.00-0.30)
[2020-01-04 13:57] LABS: ERYTHROCYTE SEDIMENTATION RATE 18 mm/hr (0-20)
== END ==
LOC: M SFHCPLAZ 12:27
PROVIDERS: ATTEND Family Medicine
DX: R22.0 Localized swelling, mass and lump, head (principal)

== ENCOUNTER → 2020-01-04 | Outpatient (CLI) | payer OTHER ==
--- NOTE | 2020-01-04 12:15 | REP ---
INDICATION: R22.0 LEFT FACIAL SWELLING/ASSESS FOR PAROTITIS/ABSCESS. COMPARISON: None. TECHNIQUE: Real-time sonographic evaluation of facial soft tissues performed with special attention paid to the left side more there is swelling. Right side is image for comparison. FINDINGS: The left facial soft tissues in the pre-auricular and buccal region demonstrate ill-defined edema and inflammatory changes of mild diffuse increased blood flow with Doppler evaluation. The findings are compatible with cellulitis. No drainable abscess is seen. IMPRESSION: Cellulitis with no drainable abscess. <Electronically signed by Robbie Farris > 01/04/20 1214
== END ==
LOC: M WHC 11:29
PROVIDERS: ATTEND Family Medicine
DX: L03.211 Cellulitis of face (principal)

== ENCOUNTER → 2020-01-06 | Outpatient (CLI) | payer OTHER ==
[~2020-01-06] MED LIST changes: +ISOVUE-370 76% 100ML VIAL As Ordered ONE
--- NOTE | 2020-01-06 11:35 | REP ---
INDICATION: LEFT FACIAL SWELLING AND LEFT SIDED FACE PAIN FILE ROOM. Patient gives a history of thyroidectomy. COMPARISON: Comparison soft tissue neck CT study September 08, 2019.. TECHNIQUE: Helical scanning is acquired and contiguous axial 3 mm images are generated. Coronal and sagittal MPR images are generated and reviewed. The contrast enhancement dose is 75 mL of intravenous Isovue 370. FINDINGS: Digital preliminary mattress and foundation sewer radiograph is unremarkable. Parotid and submandibular glands are normal and symmetric. Tonsillar and peritonsillar soft tissues are unremarkable. There is no CT evidence of paranasal sinusitis. No intraorbital abnormality is appreciated. The visualized intracranial structures are unremarkable. Retropharyngeal soft tissues of a normal appearance. Epiglottis is unremarkable. No glottic or subglottic airway lesion is seen. Floor of mouth structures are unremarkable. There is no evidence of infrahyoid or suprahyoid mass or adenopathy. No cystic lesion is appreciated. The thyroid lobes are not visible consistent with surgical absence. There are a few tiny surgical clips. No vascular abnormality is seen. There are scattered tiny posterior cervical and anterior cervical lymph nodes. No evidence of adenopathy. IMPRESSION: No evidence of mass or adenopathy seen. Status post thyroidectomy. No acute abnormality. <Electronically signed by Bg Rose > 01/06/20 [id number]
== END ==
LOC: M RAD 10:50
PROVIDERS: ATTEND Family Medicine
DX: R22.0 Localized swelling, mass and lump, head (principal); R51.9 Headache, unspecified
CPT/HCPCS: 70491; Q9967

== ENCOUNTER → 2020-01-20 | Outpatient (CLI) | payer OTHER ==
[~2020-01-20] MED LIST changes: -ISOVUE-370 76% 100ML VIAL As Ordered ONE
--- NOTE | 2020-01-20 15:43 | REPVR ---
PROCEDURE INFORMATION: Exam: MR Lumbar Spine Without Contrast. Exam date and time: 01/20/2020 2:05 PM Age: 39 years old Clinical indication: Low back pain; Patient HX: Lbp; Additional info: Spondylosis lumbar , ddd w/ radiculopathy lbp TECHNIQUE: Imaging protocol: Multiplanar magnetic resonance images of the lumbar spine without intravenous contrast. COMPARISON: MRI-LS SPINE W/O FOLL WITH CON 12/25/2015 8:26 PM FINDINGS: Vertebrae: 4 mm anterolisthesis has developed at L4-L5 with demonstrated with extensive Modic type 1 signal change since the prior study. There is minimal prominence of the annulus. There is no evidence of focal disc herniation. There is moderate facet arthropathy and foraminal stenosis without subarticular compromise. Spinal cord: The conus medullaris is normal. L1-L2: No significant disc disease. No significant spinal canal stenosis. No neural foraminal stenosis. L2-L3: No significant disc disease. No significant spinal canal stenosis. No neural foraminal stenosis. L3-L4: No significant disc disease. No significant spinal canal stenosis. No neural foraminal stenosis. L4-L5: See vertebra L5-S1: No significant disc disease. No significant spinal canal stenosis. No neural foraminal stenosis. Kidneys and ureters: A 2 cm peripelvic left renal cyst is observed, no follow up is recommended. Soft tissues: Unremarkable. Other findings: The lower thoracic and mid and upper lumbar levels show no evidence of significant disc space narrowing, disc herniations, foraminal stenosis or canal compromise. IMPRESSION: 4 mm anterolisthesis has developed at L4-L5 with demonstrated with extensive Modic type 1 signal change since the prior study. There is minimal prominence of the annulus. There is no evidence of focal disc herniation. There is moderate facet arthropathy and foraminal stenosis without subarticular compromise. Electronically signed by: Edi Cortés On 01/20/2020 15:43:21 PM
== END ==
LOC: M PLARAD 12:45
PROVIDERS: ATTEND Physician Assistant
DX: M47.896 Other spondylosis, lumbar region (principal); M51.16 Intervertebral disc disorders with radiculopathy, lumbar region; S39.012D Strain of muscle, fascia and tendon of lower back, subsequent encounter; M48.061 Spinal stenosis, lumbar region without neurogenic claudication

== ENCOUNTER → 2020-02-16 | Outpatient (CLI) | payer OTHER ==
[2020-02-16 10:53] LABS: BASO % 0.7 % (0.0-1.0); EOS % 0.9 % (0.0-3.0); HEMATOCRIT 37.5 % (36.0-47.0); LYMPH # 1.2 10^3/uL (1.5-5.0); LYMPH % 27.7 % (24.0-44.0); MEAN CORPUSCULAR HEMOGLOBIN 28.9 pg (27.0-33.0); MEAN CORPUSCULAR VOLUME 90.4 fl (80.0-96.0); MONO # 0.3 10^3/uL (0.0-0.8); MONO % 8.1 % (0.0-5.0); NEUTROPHILS # 2.6 10^3/uL (1.5-8.5); NEUTROPHILS % 62.1 % (36.0-66.0); PLATELET COUNT, AUTOMATED 207 10^3/uL (150-450); RED BLOOD COUNT 4.15 10^6/uL (4.00-5.40); WHITE BLOOD COUNT 4.2 10^3/uL (4.0-10.0)
[2020-02-16 11:21] LABS: BLOOD UREA NITROGEN 10 MG/DL (7-18); CREATININE FOR GFR 0.76 MG/DL (0.55-1.30); FERRITIN 20 NG/ML (8-252); GLOMERULAR FILTRATION RATE > 60.0 (>58); IRON (FE) 68 UG/DL (50-170); PERCENT SATURATION 20.3 % (13.2-45.0); TOTAL IRON BINDING CAPACITY 335 UG/DL (250-450)
[2020-02-16 11:26] LABS: VITAMIN B12 LEVEL 375 PG/ML
== END ==
LOC: M PLALAB 08:21
PROVIDERS: ATTEND Internal Medicine Gastroenterology
DX: E61.1 Iron deficiency (principal)

== ENCOUNTER → 2020-03-26 | Outpatient (CLI) | payer OTHER ==
[~2020-03-26] MED LIST changes: +NEUR300C PO; +TIZA2CAP PO
--- NOTE | 2020-03-26 17:02 | REP ---
INDICATION: R23.4 LEFT BREAST SKIN CHANGES; LEFT BREAST SKIN CHANGES/R23.4. COMPARISON: 06/07/2018. TECHNIQUE: MLO and CC views left breast performed with spot-compression views obtained at the site of a palpable lump inferiorly and laterally which is marked on the skin. Focused left breast ultrasound performed. FINDINGS: Moderate heterogeneously dense fibroglandular tissue appears unchanged. There is no mammographic evidence of a mass or architectural distortion. No clustered microcalcifications are seen. Focused left breast ultrasound performed at the site of the palpable abnormality. No cystic or solid nodule is seen. Volpara breast density C. IMPRESSION: BIRADS/ACR category 1, negative. Dense fibroglandular tissue. There is no mammographic or sonographic evidence of mass at the site of the reported palpable abnormality. A negative mammogram and ultrasound should not deter biopsy if there is a clinically suspicious palpable mass present. Follow-up right breast mammogram is recommended in July 2020. Most recent clinical breast exam is March 2020. Tyrer-zick lifetime risk of breast cancer is 16.0%. This mammogram was interpreted with the aid of an FDA-approved computer-aided detection system. The patient letter being requested is M2. RECOMMENDATION: Recommend screening mammography right breast July 2020. <Electronically signed by Robbie Farris > 03/26/20 [id number]
== END ==
LOC: M WHC 12:46
PROVIDERS: ATTEND Family Medicine
DX: R23.4 Changes in skin texture (principal); R92.2 Inconclusive mammogram
CPT/HCPCS: 76642; 77065; G0279

== ENCOUNTER → 2020-04-05 | Outpatient (REF) | payer OTHER ==
[~2020-04-05] MED LIST changes: -NEUR300C PO; -TIZA2CAP PO
[2020-04-05 14:07] LABS: BASO % 0.8 % (0.0-1.0); EOS % 0.8 % (0.0-3.0); HEMOGLOBIN 12.7 g/dl (12.0-15.5); LYMPH # 1.2 10^3/uL (1.5-5.0); LYMPH % 31.3 % (24.0-44.0); MEAN CORPUSCULAR HGB CONC 32.6 g/dl (32.0-36.5); MONO # 0.3 10^3/uL (0.0-0.8); MONO % 8.1 % (0.0-5.0); NEUTROPHILS # 2.3 10^3/uL (1.5-8.5); NEUTROPHILS % 58.5 % (36.0-66.0); PLATELET COUNT, AUTOMATED 221 10^3/uL (150-450); RED BLOOD COUNT 4.24 10^6/uL (4.00-5.40); WHITE BLOOD COUNT 3.9 10^3/uL (4.0-10.0)
[2020-04-05 15:11] LABS: BLOOD UREA NITROGEN 9 MG/DL (7-18); CALCIUM LEVEL 8.9 MG/DL (8.5-10.1); CARBON DIOXIDE LEVEL 30 MEQ/L (21-32); CHLORIDE LEVEL 105 MEQ/L (98-107); CREATININE FOR GFR 0.79 MG/DL (0.55-1.30); GLOMERULAR FILTRATION RATE > 60.0 (>58); GLUCOSE, FASTING 80 MG/DL (70-100); POTASSIUM SERUM 4.3 MEQ/L (3.5-5.1); SODIUM LEVEL 140 MEQ/L (136-145)
[2020-04-05 15:12] LABS: ALBUMIN 4.2 GM/DL (3.2-5.2); ALT/SGPT 20 U/L (12-78); BILIRUBIN,TOTAL 0.4 MG/DL (0.2-1.0); FERRITIN 16 NG/ML (8-252); FREE T4 1.06 NG/DL (0.76-1.46); IRON (FE) 82 UG/DL (50-170); PERCENT SATURATION 22.3 % (13.2-45.0); TOTAL IRON BINDING CAPACITY 368 UG/DL (250-450); TOTAL PROTEIN 7.7 GM/DL (6.4-8.2); TOTAL T3 99.7 NG/DL (60.0-181.0)
== END ==
LOC: M PLALAB 13:21
PROVIDERS: ATTEND Internal Medicine
DX: C73 Malignant neoplasm of thyroid gland (principal); R53.83 Other fatigue

== ENCOUNTER → 2020-04-05 | Outpatient (CLI) | payer OTHER ==
[2020-04-05 13:48] LABS: BASO # 0.1 10^3/uL (0.0-0.2); BASO % 1.3 % (0.0-1.0); EOS % 0.5 % (0.0-3.0); HEMATOCRIT 39.3 % (36.0-47.0); HEMOGLOBIN 12.4 g/dl (12.0-15.5); LYMPH # 1.3 10^3/uL (1.5-5.0); LYMPH % 32.7 % (24.0-44.0); MEAN CORPUSCULAR HGB CONC 31.6 g/dl (32.0-36.5); MEAN CORPUSCULAR VOLUME 91.8 fl (80.0-96.0); MONO # 0.3 10^3/uL (0.0-0.8); MONO % 8.4 % (0.0-5.0); NEUTROPHILS # 2.2 10^3/uL (1.5-8.5); NEUTROPHILS % 56.6 % (36.0-66.0); PLATELET COUNT, AUTOMATED 222 10^3/uL (150-450); RED BLOOD COUNT 4.28 10^6/uL (4.00-5.40); WHITE BLOOD COUNT 3.9 10^3/uL (4.0-10.0)
[2020-04-05 14:13] LABS: ERYTHROCYTE SEDIMENTATION RATE 19 mm/hr (0-20)
== END ==
LOC: M PLALAB 11:13
PROVIDERS: ATTEND Physician Assistant
DX: Z13.79 Encounter for other screening for genetic and chromosomal anomalies (principal)

== ENCOUNTER → 2020-04-18 | Outpatient (CLI) | payer OTHER ==
[~2020-04-18] MED LIST changes: +NEUR300C PO; +PROHANCE 279.3MG/ML 15ML VIAL As Ordered ONE; +TIZA2CAP PO
--- NOTE | 2020-04-18 11:40 | REP ---
INDICATION: WOUND ON LEFT BREAST, HIGH RISK FOR BC. COMPARISON: Comparison left breast mammography and sonography 26 March 2020. TECHNIQUE: Three [place] MRI imaging was performed with a dedicated breast coil. Axial, coronal, and sagittal T1 and T2 weighted scans were obtained with and without fat saturation in the usual fashion. The study includes dynamically acquired post gadolinium-enhanced imaging with image subtraction. Maximum intensity projection and multi planar reformation imaging is included as well. This study is interpreted with the aid of NetlistD, an FDA approved computer aided detection (CAD) software program, on a dedicated breast MRI workstation. The gadolinium enhancement dose is 15 mL of intravenous ProHance. FINDINGS: T2 weighted scans demonstrate a few prominent subareolar breast ducts bilaterally. No observable dermal defect is seen. However, in the left inferolateral breast, middle 3rd, there is a 1 cm focus of very slight dermal thickening and enhancement consistent with the history of rash. This should be correlated with physical exam. It is located at approximately 4 o'clock position. There are numerous small tiny is cysts scattered throughout the moderate heterogeneous fibroglandular tissue bilaterally. In the left breast anterior 3rd at 12 to 1 o'clock position in the subareolar zone, there is a small sub cm cyst. There is no evidence of axillary lymphadenopathy on either side. There is a mild pattern of background parenchymal enhancement. Dynamically acquired sequential postcontrast images show no suspicious focus of enhancement or washout in the parenchyma of either breast. The small patch of a dermal thickening and enhancement shows a tiny focus of enhancement above threshold with some washout. This may be a vessel. There are subdermal veins posterior to this. Subtraction images show no additional abnormality. IMPRESSION: There is a 1 cm focus of slight dermal thickening and contrast enhancement in the inferolateral quadrant of the left breast middle 3rd at approximately the 4 o'clock position. This should be correlated with the area of the rash on physical exam and consideration could be given to dermal biopsy.. No other significant finding is seen. No suspicious parenchymal abnormality noted. Otherwise, BI-RADS category 2 benign findings. <Electronically signed by Bg Rose > 04/18/20 [id number]
== END ==
LOC: M RAD 07:44
PROVIDERS: ATTEND Surgery
DX: R92.8 Other abnormal and inconclusive findings on diagnostic imaging of breast (principal); S21.002A Unspecified open wound of left breast, initial encounter; Y92.9 Unspecified place or not applicable; Y93.9 Activity, unspecified; Y99.9 Unspecified external cause status; Z91.89 Other specified personal risk factors, not elsewhere classified
CPT/HCPCS: A9576; C8908

== ENCOUNTER → 2020-04-27 | Outpatient (REF) | payer OTHER ==
[~2020-04-27] MED LIST changes: -PROHANCE 279.3MG/ML 15ML VIAL As Ordered ONE
== END ==
LOC: M PLALAB 10:15
PROVIDERS: ATTEND Surgery
DX: N64.52 Nipple discharge (principal)

== ENCOUNTER → 2020-06-22 | Outpatient (CLI) | payer OTHER | LOC: M LAB 17:30 | PROVIDERS: ATTEND Nuclear Medicine | DX: C73 Malignant neoplasm of thyroid gland (principal) ==

== ENCOUNTER → 2020-07-09 | Outpatient (REF) | payer OTHER ==
[2020-07-09 13:27] LABS: HEMATOCRIT 39.7 % (36.0-47.0); MEAN CORPUSCULAR HEMOGLOBIN 30.3 pg (27.0-33.0); MEAN CORPUSCULAR HGB CONC 32.7 g/dl (32.0-36.5); MEAN CORPUSCULAR VOLUME 92.5 fl (80.0-96.0); PLATELET COUNT, AUTOMATED 257 10^3/uL (150-450); RED BLOOD COUNT 4.29 10^6/uL (4.00-5.40); WHITE BLOOD COUNT 5.4 10^3/uL (4.0-10.0)
[2020-07-09 13:43] LABS: BLOOD UREA NITROGEN 10 MG/DL (7-18); CALCIUM LEVEL 9.4 MG/DL (8.5-10.1); CARBON DIOXIDE LEVEL 31 MEQ/L (21-32); CHLORIDE LEVEL 104 MEQ/L (98-107); CREATININE FOR GFR 0.65 MG/DL (0.55-1.30); FERRITIN 13 NG/ML (8-252); GLOMERULAR FILTRATION RATE > 60.0 (>58); GLUCOSE, FASTING 99 MG/DL (70-100); IRON (FE) 50 UG/DL (50-170); POTASSIUM SERUM 4.4 MEQ/L (3.5-5.1); SODIUM LEVEL 140 MEQ/L (136-145); THYROID STIMULATING HORMONE 0.994 uIU/ML (0.358-3.740); TOTAL IRON BINDING CAPACITY 385 UG/DL (250-450)
== END ==
LOC: M SFHCPLAZ 11:20
PROVIDERS: ATTEND Family Medicine
DX: R53.82 Chronic fatigue, unspecified (principal); E89.0 Postprocedural hypothyroidism

== ENCOUNTER 2020-07-15 22:48 | Emergency (ER) | payer OTHER ==
[~2020-07-15] VITALS: Ht 167.6 cm; Wt 76.0 kg
[2020-07-15] MEDS ORDERED: LORA-674 PO (23:56)
[2020-07-15] MEDS ORDERED: GABA600T4 PO (23:56)
[2020-07-15] MEDS ORDERED: LEFL20TA10 PO (23:56)
[2020-07-15] MEDS ORDERED: SYNT125T PO (23:56)
[2020-07-16] MEDS ORDERED: DOXYCYCLINE HYCLATE 100MG TABLET PO ONE (01:10)
[2020-07-16] MEDS ORDERED: DOXY100C37 PO (01:11)
[2020-07-16 01:30] VITALS: BP 108/63
== END 2020-07-16 01:31 | disposition home or self-care (01) ==
LOC: M ED 22:48
DX: L03.115 Cellulitis of right lower limb (principal); M32.9 Systemic lupus erythematosus, unspecified; J30.2 Other seasonal allergic rhinitis; Z88.2 Allergy status to sulfonamides; Z88.6 Allergy status to analgesic agent

== ENCOUNTER 2020-07-20 12:38 | Inpatient (IN) | payer OTHER ==
[~2020-07-20] VITALS: Ht 167.6 cm; Wt 76.5 kg
[~2020-07-20 12:38] MED LIST changes: +DOXY100C37 PO; +GABA600T4 PO; +LEFL20TA10 PO; +LORA-674 PO; +SYNT125T PO
[2020-07-20 15:39] LABS: BASO % 0.4 % (0.0-1.0); EOS % 1.1 % (0.0-3.0); HEMATOCRIT 39.2 % (36.0-47.0); HEMOGLOBIN 12.6 g/dl (12.0-15.5); LYMPH % 37.7 % (24.0-44.0); MEAN CORPUSCULAR HEMOGLOBIN 29.4 pg (27.0-33.0); MEAN CORPUSCULAR HGB CONC 32.1 g/dl (32.0-36.5); MEAN CORPUSCULAR VOLUME 91.4 fl (80.0-96.0); MONO # 0.4 10^3/uL (0.0-0.8); MONO % 14.7 % (2.0-8.0); NEUTROPHILS # 1.2 10^3/uL (1.5-8.5); NEUTROPHILS % 45.7 % (36.0-66.0); PLATELET COUNT, AUTOMATED 166 10^3/uL (150-450); RED BLOOD COUNT 4.29 10^6/uL (4.00-5.40); WHITE BLOOD COUNT 2.7 10^3/uL (4.0-10.0)
[2020-07-20 15:58] LABS: INR 0.94; PROTHROMBIN TIME 12.8 SECONDS (12.5-14.3)
[2020-07-20 15:59] LABS: PARTIAL THROMBOPLASTIN TIME 25.8 SECONDS (24.2-38.5)
[2020-07-20 16:13] LABS: ALBUMIN 3.6 GM/DL (3.2-5.2); ALT/SGPT 29 U/L (12-78); BILIRUBIN,DIRECT < 0.1 MG/DL (0.0-0.2); BILIRUBIN,TOTAL 0.2 MG/DL (0.2-1.0); BLOOD UREA NITROGEN 6 MG/DL (7-18); C REACTIVE PROTEIN QUANTITATIV 0.37 MG/DL (0.00-0.30); CALCIUM LEVEL 8.7 MG/DL (8.5-10.1); CARBON DIOXIDE LEVEL 30 MEQ/L (21-32); CHLORIDE LEVEL 107 MEQ/L (98-107); FREE T3 1.9 PG/ML (2.2-4.0); FREE T4 1.11 NG/DL (0.76-1.46); GLOMERULAR FILTRATION RATE > 60.0 (>58); GLUCOSE, FASTING 78 MG/DL (70-100); POTASSIUM SERUM 4.1 MEQ/L (3.5-5.1); SODIUM LEVEL 140 MEQ/L (136-145); TOTAL PROTEIN 6.9 GM/DL (6.4-8.2)
[2020-07-20 16:17] LABS: ERYTHROCYTE SEDIMENTATION RATE 15 mm/hr (0-20)
[2020-07-20 17:34] VITALS: O2SAT 83
[2020-07-20] MEDS ORDERED: DOXY100C37 PO (18:08)
--- NOTE | 2020-07-20 18:22 | HPEPDOC ---
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 This patient had developed pain for the last 3-4 days in the left temporal area without any vision loss. Patient also notes having been diagnosed with Coban on 07/16/20 and developed symptoms on 07/15/20. Patient had been asymptomatic and was quarantining at home. Patient presented to the ER was found to have normal inflammatory markers, and was ready to be discharged home, however, became hypoxic to the low 80s on exertion. Hospitalist service consulted for admission for hypoxia, felt likely to be secondary to covid 19 infection. Patient reports completing a several week course of steroids which ended in mid June for her SLE/Sjogren's flare. Patient also reports recent admission to the ER in early July for cellulitis of the right lower extremity which improved with by mouth doxycycline. Patient receives rheumatological care at [facility] with Dr. Marin Hood (tel: [phone]) in [place], [place]. Patient denies any chest pain, shortness of breath, palpitations, nausea, vomiting or diarrhea. Chest x-ray was unremarkable. Abnormal glucose, positive for mild neutropenia, white count 2.7, neutrophil count 1200. 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, resolved with steroids SLE Sjogren's syndrome C diff x 2 (was on abx for tooth abscess) hereditary hemochromatosis (likely asymptomatic carrier) endometrisis complex partial seizures chronic tachycardia, previously seen by cardiology s/p holter in 2018, PVCs PAST SURGICAL HISTORY: Thyroidectomy vaginal hysterectomy R salpingo-oophorectomy (L ovary and fallopian tube intact) Bilateral benign lumpectomy and duct excision SOCIAL HISTORY: Non smoker Non drinker No illicit drug use FAMILY HISTORY: FATHER: ALIVE 70 YRS, HTN,DM, HEMOCHROMATOSIS MOTHER: ALIVE 66 YRS, HTN,DM, COLON POLYPS SIBLINGS: ALIVE 39 YRS, SISTER - THYROID CANCER SON(S): ALIVE 12 YRS, FACTOR V LEIDEN DEFICIENCY, QUALITATIVE PLATELET DISORDER, TOURETTES, ANXIETY, OCD DAUGHTER(S): ALIVE 16 YRS, IRON DEFICIENCY ANEMIA, TOURETTE PATERNAL GRAND FATHER: LUNG CA PATERNAL GRAND MOTHER: QUESTIONABLE CROHN MATERNAL GRAND FATHER: LEUKEMIA MATERNAL GRAND MOTHER: BREAST CA MATERNAL GM, MATERNAL AUNT, AND COUSIN WITH BREAST CA\NMATERNAL GREAT AUNT X 2 WITH UTERINE CA\NNO KNOWN HX OF OVARIAN CANCER\NMATERNAL UNCLE WITH COLORECTAL CA\NMOTHER, BROTHER, AND 2 SISTERS HAVE FACTOR V LEIDEN\N3 SISTERS, 1 WITH SKIN CANCER, 1 SISTER WITH THYROID CA. \N MOTHER HAS COLON CANCER 07/2020. ALLERGIES: Please see below. REVIEW OF SYSTEMS: 10 point ROS was conducted, relevant findings are noted in HPI HOME MEDICATIONS: Please see below. PHYSICAL EXAMINATION: VITAL SIGNS: please see below General: NAD, comfortable HEENT: PERRLA, EOMI, sclerae clear Neck: supple, normal ROM, no JVD Respiratory: lungs CTAB, no wheeze, no rales, no crackles CVS: RRR, normal S1, S2, no murmurs Abdo: soft, no masses, no hepatosplenomegaly, BS+, no rebound tenderness Extremities: no edema, pulses 2+ MSK: no joint deformities, normal ROM Neuro: no focal neuro deficits, moving all 4 extremities, CN2-12 intact. Strength 5/5 in all 4 extremities. No nystagmus. Psych: calm, cooperative, AAO x 3 LABORATORY DATA: See below. IMAGING: CXR (07/20/20): FINDINGS: There is no acute infiltrate or pulmonary edema. Lungs are clear. The heart is not significantly enlarged. The mediastinal silhouette is unremarkable. The visualized osseous structures are intact. IMPRESSION: No acute pulmonary disease. MICROBIOLOGY: Please see below. ASSESSMENT: 40 yo F with a PMHx of factor V Leiden, SLE, Sjogren's, Soha's thyroiditis, papilary thyroid cancer s/p thyroidectomy, COVID-19 (positive on 07/16/20, symptoms onset 07/15/20) presented to ER with L temporal pain for past several days without vision changes. Given her history of vasculitis, she was refered to ER for workup of possible temporal arteritis. Her ESR and CRP were normal, but upon discharge home she was found to be hypoxic to low 80s. She is being admitted to hospitalist service for workup of hypoxia, though to be likely 2/2 covid-19 pna vs PE given her hx of factor V, superficial thromboses and procoagulable state during covid-19. . PLAN: Hypoxia possibly 2/2 COVID-19 infection vs PE - COVID-19 positive on 07/16/20 - hypoxic to 83% on RA upon exertion - check CTA PE given hx of factor V leiden - I discussed with patient's hrbp Dr. Marin Hood (tel: [phone]) in [place], [place] regarding starting remdesevir and corticosteroids given her numerous rhematological conditions - he sees no contraindication to startin remdesevir and dexamethasone - start dexamethasone 6 mg IV daily - start remdesevir - Incentive spirometry - combivent - check procal - start lovenox 40 mg sc daily for now - will defer abx at this time, given lack of leukocytosis, cough, sputum, fever L temporal pain - concern for possible temporal arteritis from PCP - ESR 15, CRP 0.37 - d/w Dr. 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 - off ASA, as had bleeding? - follows with hematology - had reveral to [place] DVT ppx: lovenox 40 mg daily. SCDs. TEDs. Vital Signs Vital Signs Date Time Temp Pulse Resp B/P (MAP) Pulse Ox O2 Delivery O2 Flow Rate FiO2 07/20/20 18:05 Room Air 07/20/20 18:05 07/20/20 17:34 83 07/20/20 12:38 96.8 79 20 Laboratory Data Labs 24H Laboratory Tests 2 07/20/20 15:24: Immature Granulocyte % (Auto) 0.4, Neutrophils (%) (Auto) 45.7, Lymphocytes (%) (Auto) 37.7, Monocytes (%) (Auto) 14.7H, Eosinophils (%) (Auto) 1.1, Basophils (%) (Auto) 0.4, Neutrophils # (Auto) 1.2L, Lymphocytes # (Auto) 1.0L, Monocytes # (Auto) 0.4, Eosinophils # (Auto) 0.0, Basophils # (Auto) 0.0, Nucleated Red Blood Cells % (auto) 0.0, Erythrocyte Sedimentation Rate 15, Prothrombin Time 12.8, Prothromb Time International Ratio 0.94, Activated Partial Thromboplast Time 25.8, Anion Gap 3L, Glomerular Filtration Rate > 60.0, Lactic Acid Level 0.9, Calcium Level 8.7, Total Bilirubin 0.2, Direct Bilirubin < 0.1, Aspartate Amino Transf (AST/SGOT) 17, Alanine Aminotransferase (ALT/SGPT) 29, Alkaline Phosphatase 58, C-Reactive Protein, Quantitative 0.37H, Total Protein 6.9, Albumin 3.6, Albumin/Globulin Ratio 1.1L, Thyroid Stimulating Hormone (TSH) 3.600, Free Thyroxine 1.11, Free Triiodothyronine 1.9L CBC/BMP Laboratory Tests 07/20/20 15:24 Home Medications Scheduled Calcium Carbonate (Calcium) 500 Mg Tab.chew, 500 MG PO DAILY Doxycycline Monohydrate (Doxycycline Monohydrate) 100 Mg Capsule, 100 MG PO BID Levothyroxine Sodium (Synthroid) 125 Mcg Tablet, 125 MCG PO DAILY TAKES BRAND SYNTHROID IS ALLERGIC TO GENERIC Allergies Coded Allergies: banana (Verified Allergy, Unknown, 07/15/20) levothyroxine (Verified Allergy, Unknown, 07/15/20) Sulfa (Sulfonamide Antibiotics) (Verified Adverse Reaction, Unknown, DOES NOT TAKE RELATED TO LUPUS, 07/15/20) aspirin (Verified Adverse Reaction, Unknown, BLEEDING, 07/15/20) codeine (Verified Adverse Reaction, Unknown, VOMITING, 07/15/20) CARROLL PERKINS MD July 20, 2020 18:22
--- NOTE | 2020-07-20 18:24 | REP ---
INDICATION: SARMIENTO. COMPARISON: 09/08/2019. TECHNIQUE: Single portable AP view of the chest was performed. FINDINGS: There is no acute infiltrate or pulmonary edema. Lungs are clear. The heart is not significantly enlarged. The mediastinal silhouette is unremarkable. The visualized osseous structures are intact. IMPRESSION: No acute pulmonary disease. <Electronically signed by Robbie Farris > 07/20/20 [id number]
[2020-07-20] MEDS ORDERED: ISOVUE-370 76% 100ML VIAL As Ordered ONE ×2 (18:30→19:11)
[2020-07-20] MEDS ORDERED: COMBIVENT RESPIMAT 100-20MCG INHALER 4GM INH PRN (19:30)
--- NOTE | 2020-07-20 20:17 | REPVR ---
PROCEDURE INFORMATION: Exam: CTA Chest With Contrast Exam date and time: 07/20/2020 7:15 PM Age: 40 years old Clinical indication: Chest wall pain; Additional info: R/O pe TECHNIQUE: Imaging protocol: Computed tomographic angiography of the chest with contrast. 3D rendering (Not supervised by radiologist): MIP and/or 3D reconstructed images were created by the technologist. Radiation optimization: All CT scans at this facility use at least one of these dose optimization techniques: automated exposure control; mA and/or kV adjustment per patient size (includes targeted exams where dose is matched to clinical indication); or iterative reconstruction. Contrast material: ISOVUE 370; Contrast volume: 75 ml; Contrast route: INTRAVENOUS (IV); COMPARISON: CT ANGIO CHEST 09/08/2019 8:15 PM FINDINGS: Pulmonary arteries: No focal pulmonary artery filling defect to suggest acute pulmonary embolus. Aorta: No thoracic aortic aneurysm or dissection. Lungs: Pulmonary vascular/interstitial pattern does not suggest active pulmonary edema. Focal ill-defined 2 x 1.5 cm opacity at the posterior left lung base may represent an early pneumonia or perhaps atelectasis. No central endobronchial lesion. Pleural spaces: No pleural effusion or pneumothorax. Heart: No overt cardiac enlargement or abnormal volume of pericardial fluid. Mediastinal space: Residual thymic tissue is present in the anterior mediastinum. Lymph nodes: No enlarged mediastinal lymph nodes. Bones/joints: Bony structures show no acute fracture or destructive process. Soft tissues: No asymmetric abnormality of the extrathoracic soft tissues. IMPRESSION: 1. No evidence of acute pulmonary embolus. 2. Focal ill-defined 2 x 1.5 cm left lower lobe opacity which may represent a focal pneumonia. This is non masslike Electronically signed by: Nelson Puente On 07/20/2020 20:16:53 PM
[2020-07-20] MEDS: ENOXAPARIN 40MG/0.4ML SYRINGE (J1650 PER 10MG) SC SCH (20:38)
[2020-07-20] MEDS: dexameTHASONE 4 MG/ML 1ML VIAL (J1100 PER 1MG) IV SCH (20:50)
[2020-07-20 21:15] VITALS: BP 141/86
[2020-07-20] MEDS ORDERED: REMDESIVIR 200 MG in NS 250 ML IV ONE (22:00)
[2020-07-21] MEDS ORDERED: SODIUM CHLORIDE 0.9% INJ 10 ML SYR IV ONE
[2020-07-21 04:35] VITALS: BP 103/59
[2020-07-21] MEDS ORDERED: LEVOTHYROXINE 125MCG TABLET (0.125MG) PO SCH (06:00)
[2020-07-21] MEDS ORDERED: SYNTHROID 125 MCG PO SCH (06:00)
[2020-07-21 07:41] VITALS: BP 93/67
[2020-07-21] MEDS: dexameTHASONE 4 MG/ML 1ML VIAL (J1100 PER 1MG) IV SCH (08:05)
[2020-07-21] MEDS: ENOXAPARIN 40MG/0.4ML SYRINGE (J1650 PER 10MG) SC SCH (08:05)
[2020-07-21 08:15] LABS: INR 0.88; PROTHROMBIN TIME 12.1 SECONDS (12.5-14.3)
[2020-07-21 08:16] LABS: PARTIAL THROMBOPLASTIN TIME 26.4 SECONDS (24.2-38.5)
[2020-07-21 08:19] LABS: D-DIMER QUANT 597.96 ng/ml (<500)
[2020-07-21 08:27] LABS: ALBUMIN 3.4 GM/DL (3.2-5.2); ALT/SGPT 26 U/L (12-78); BILIRUBIN,TOTAL 0.2 MG/DL (0.2-1.0); BLOOD UREA NITROGEN 8 MG/DL (7-18); C REACTIVE PROTEIN QUANTITATIV 0.44 MG/DL (0.00-0.30); CALCIUM LEVEL 8.3 MG/DL (8.5-10.1); CARBON DIOXIDE LEVEL 30 MEQ/L (21-32); CHLORIDE LEVEL 105 MEQ/L (98-107); CPK CREATINE PHOSPHOKINASE 44 U/L (26-192); CREATININE FOR GFR 0.55 MG/DL (0.55-1.30); FERRITIN 23 NG/ML (8-252); GLOMERULAR FILTRATION RATE > 60.0 (>58); GLUCOSE, FASTING 70 MG/DL (70-100); LDH LACTATE DEHYDROGENASE 111 U/L (84-246); MAGNESIUM LEVEL 2.1 MG/DL (1.8-2.4); POTASSIUM SERUM 3.9 MEQ/L (3.5-5.1); SODIUM LEVEL 139 MEQ/L (136-145); TOTAL PROTEIN 6.6 GM/DL (6.4-8.2); TROPONIN I < 0.02 NG/ML (< 0.10)
[2020-07-21 08:33] LABS: HEMATOCRIT 40.2 % (36.0-47.0); MEAN CORPUSCULAR HEMOGLOBIN 29.6 pg (27.0-33.0); MEAN CORPUSCULAR HGB CONC 32.3 g/dl (32.0-36.5); MEAN CORPUSCULAR VOLUME 91.6 fl (80.0-96.0); PLATELET COUNT, AUTOMATED 165 10^3/uL (150-450); RED BLOOD COUNT 4.39 10^6/uL (4.00-5.40); WHITE BLOOD COUNT 2.9 10^3/uL (4.0-10.0)
[2020-07-21] MEDS ORDERED: DOXYCYCLINE HYCLATE 100MG TABLET PO SCH (09:00)
[2020-07-21 10:34] LABS: BASO % 0.3 % (0.0-1.0); EOS % 0.7 % (0.0-3.0); LYMPH # 1.1 10^3/uL (1.5-5.0); LYMPH % 36.5 % (24.0-44.0); MONO # 0.4 10^3/uL (0.0-0.8); MONO % 14.9 % (2.0-8.0); NEUTROPHILS # 1.4 10^3/uL (1.5-8.5); NEUTROPHILS % 46.9 % (36.0-66.0)
[2020-07-21] MEDS ORDERED: VENTAER INH (10:41)
--- NOTE | 2020-07-21 10:45 | DS.PDOC ---
Discharge Summary General Date of Admission July 20, 2020 at 18:31 Discharge Summary PROCEDURES PERFORMED DURING STAY: [None]. COMPLICATIONS/CHIEF COMPLAINT: Covid 19. 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 This patient had developed pain for the last 3-4 days in the left temporal area without any vision loss. Patient also notes having been diagnosed with Coban on 07/16/20 and developed symptoms on 07/15/20. Patient had been asymptomatic and was quarantining at home. Patient presented to the ER was found to have normal inflammatory markers, and was ready to be discharged home, however, became hypoxic to the low 80s on exertion. Hospitalist service consulted for admission for hypoxia, felt likely to be secondary to covid 19 infection. Patient reports completing a several week course of steroids which ended in mid June for her SLE/Sjogren's flare. Patient also reports recent admission to the ER in early July for cellulitis of the right lower extremity which improved with by mouth doxycycline. Patient receives rheumatological care at [facility] with Dr. Marin Hood (tel: [phone]) in [place], [place]. Patient denies any chest pain, shortness of breath, palpitations, nausea, vomiting or diarrhea. Chest x-ray was unremarkable. Abnormal glucose, positive for mild neutropenia, white count 2.7, neutrophil count 1200. 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 Marin Hood (tel: [phone]) in [place], [place] regarding starting remdesevir and corticosteroids given her numerous rhematological conditions - he sees no contraindication to startin remdesevir and dexamethasone - start dexamethasone 6 mg IV daily - start remdesevir - Incentive spirometry - combivent - check procal - start lovenox 40 mg sc daily for now - will defer abx at this time, given lack of leukocytosis, cough, sputum, fever - CT angio showingpossible LLL pna, d/w Dr. Contreras, ok to RI home, repeat i maging after completed 10 day course of doxy (was previously prescribed for cellulitis, has 4 days remaining) L temporal pain - concern for possible temporal arteritis from PCP - ESR 15, CRP 0.37 - d/w Dr. 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 - off ASA, as had bleeding? - follows with hematology - had reveral to [place] DVT ppx: lovenox 40 mg daily. SCDs. TEDs. DISCHARGE MEDICATIONS: Please see below. ALLERGIES: Please see below. PHYSICAL EXAMINATION ON DISCHARGE: VITAL SIGNS: please see below General: NAD, comfortable HEENT: PERRLA, EOMI, sclerae clear Neck: supple, normal ROM, no JVD Respiratory: lungs CTAB, no wheeze, no rales, no crackles CVS: RRR, normal S1, S2, no murmurs Abdo: soft, no masses, no hepatosplenomegaly, BS+, no rebound tenderness Extremities: no edema, pulses 2+ MSK: no joint deformities, normal ROM Neuro: no focal neuro deficits, moving all 4 extremities, CN2-12 intact. Strength 5/5 in all 4 extremities. No nystagmus. Psych: calm, cooperative, AAO x 3 LABORATORY DATA: Please see below. IMAGING: CXR (07/20/20): FINDINGS: There is no acute infiltrate or pulmonary edema. Lungs are clear. The heart is not significantly enlarged. The mediastinal silhouette is unremarkable. The visualized osseous structures are intact. CT angio chest (07/21/20): Pulmonary arteries: No focal pulmonary artery filling defect to suggest acute pulmonary embolus. Aorta: No thoracic aortic aneurysm or dissection. Lungs: Pulmonary vascular/interstitial pattern does not suggest active pulmonary edema. Focal ill-defined 2 x 1.5 cm opacity at the posterior left lung base may represent an early pneumonia or perhaps atelectasis. No central endobronchial lesion. Pleural spaces: No pleural effusion or pneumothorax. Heart: No overt cardiac enlargement or abnormal volume of pericardial fluid. Mediastinal space: Residual thymic tissue is present in the anterior mediastinum. Lymph nodes: No enlarged mediastinal lymph nodes. Bones/joints: Bony structures show no acute fracture or destructive process. Soft tissues: No asymmetric abnormality of the extrathoracic soft tissues. IMPRESSION: 1. No evidence of acute pulmonary embolus. 2. Focal ill-defined 2 x 1.5 cm left lower lobe opacity which may represent a focal pneumonia. This is non masslike PROGNOSIS: excellent ACTIVITY: [As tolerated]. DIET: as tolerated DISCHARGE PLAN: Discharge home with primary care follow-up within 3-5 days. Plan to repeat chest imaging after completion of antibiotics to ensure resolution of the left lower lobe opacity. Please follow-up with rheumatology, hematology, as well as endocrinology. Primary care to issue referral to pulmonology. DISPOSITION: home DISCHARGE INSTRUCTIONS: . Please follow-up with your primary care doctor within 3-5 days . Please follow-up with specialist services as above Is complete ten-day course of doxycycline which you have been prescribed during a prior ER visit for cellulitis . Please taking medications as prescribed. . If you develop bleeding, chest pain, shortness of breath, seizures, nausea, f jam, or otherwise worsening of your symptoms, please call 911 or return to the nearest emergency room ITEMS TO FOLLOWUP ON ON OUTPATIENT: - repeat chest imaging to ensure resolution of possible R lung base pna. DISCHARGE CONDITION: [Stable]. TIME SPENT ON DISCHARGE: 35minutes Vital Signs/I&Os Vital Signs Date Time Temp Pulse Resp B/P (MAP) Pulse Ox O2 Delivery O2 Flow Rate FiO2 07/21/20 07:41 96.8 75 18 93/67 (76) 99 Room Air I&O- Last 24 Hours up to 6 AM 07/21/20 06:00 Intake Total 800 ml Output Total 1100 ml Balance -300 ml Laboratory Data Labs 24H Laboratory Tests 2 07/20/20 15:09: Procalcitonin <0.05 07/20/20 15:24: Immature Granulocyte % (Auto) 0.4, Neutrophils (%) (Auto) 45.7, Lymphocytes (%) (Auto) 37.7, Monocytes (%) (Auto) 14.7H, Eosinophils (%) (Auto) 1.1, Basophils (%) (Auto) 0.4, Neutrophils # (Auto) 1.2L, Lymphocytes # (Auto) 1.0L, Monocytes # (Auto) 0.4, Eosinophils # (Auto) 0.0, Basophils # (Auto) 0.0, Nucleated Red Blood Cells % (auto) 0.0, Erythrocyte Sedimentation Rate 15, Prothrombin Time 12.8, Prothromb Time International Ratio 0.94, Activated Partial Thromboplast Time 25.8, Anion Gap 3L, Glomerular Filtration Rate > 60.0, Lactic Acid Level 0.9, Calcium Level 8.7, Total Bilirubin 0.2, Direct Bilirubin < 0.1, Aspartate Amino Transf (AST/SGOT) 17, Alanine Aminotransferase (ALT/SGPT) 29, Alkaline Phosphatase 58, C-Reactive Protein, Quantitative 0.37H, Total Protein 6.9, Albumin 3.6, Albumin/Globulin Ratio 1.1L, Thyroid Stimulating Hormone (TSH) 3.600, Free Thyroxine 1.11, Free Triiodothyronine 1.9L 07/21/20 06:37: Immature Granulocyte % (Auto) 0.7, Neutrophils (%) (Auto) 46.9, Lymphocytes (%) (Auto) 36.5, Monocytes (%) (Auto) 14.9H, Eosinophils (%) (Auto) 0.7, Basophils (%) (Auto) 0.3, Neutrophils # (Auto) 1.4L, Lymphocytes # (Auto) 1.1L, Monocytes # (Auto) 0.4, Eosinophils # (Auto) 0.0, Basophils # (Auto) 0.0, Nucleated Red Blood Cells % (auto) 0.0, Immature Granulocyte # (Auto) 0.0 07/21/20 06:46: Prothrombin Time 12.1, Prothromb Time International Ratio 0.88, Activated Partial Thromboplast Time 26.4, Anion Gap 4L, Glomerular Filtration Rate > 60.0, Calcium Level 8.3L, Total Bilirubin 0.2, Aspartate Amino Transf (AST/SGOT) 19, Alanine Aminotransferase (ALT/SGPT) 26, Alkaline Phosphatase 58, C-Reactive Protein, Quantitative 0.44H, Total Protein 6.6, Albumin 3.4, Albumin/Globulin Ratio 1.1L, Fibrinogen 293, D-Dimer, Quantitative 597.96H, Magnesium Level 2.1, Ferritin 23, Lactate Dehydrogenase 111, Total Creatine Kinase 44, Troponin I < 0.02 CBC/BMP Laboratory Tests 07/20/20 15:24 07/21/20 06:37 07/21/20 06:46 Discharge Medications Scheduled Calcium Carbonate (Calcium) 500 Mg Tab.chew, 500 MG PO DAILY, (Reported) Doxycycline Monohydrate (Doxycycline Monohydrate) 100 Mg Capsule, 100 MG PO BID, (Reported) Levothyroxine Sodium (Synthroid) 125 Mcg Tablet, 125 MCG PO DAILY, (Reported) TAKES BRAND SYNTHROID IS ALLERGIC TO GENERIC Scheduled PRN Albuterol Sulfate (Ventolin Hfa) 18 Gm Hfa.aer.ad, 2 PUFF INH Q4-6HP PRN for wheezing Allergies Coded Allergies: banana (Verified Allergy, Unknown, 07/15/20) levothyroxine (Verified Allergy, Unknown, 07/15/20) Sulfa (Sulfonamide Antibiotics) (Verified Adverse Reaction, Unknown, DOES NOT TAKE RELATED TO LUPUS, 07/15/20) aspirin (Verified Adverse Reaction, Unknown, BLEEDING, 07/15/20) codeine (Verified Adverse Reaction, Unknown, VOMITING, 07/15/20) CARROLL PERKINS MD July 21, 2020 10:45
[2020-07-21 10:46] LABS: PLATELET ESTIMATE NORMAL (NORMAL)
[2020-07-21] MEDS ORDERED: REMDESIVIR 100 MG in NS 250 ML IV SCH (18:40)
[2020-07-21] MEDS ORDERED: SODIUM CHLORIDE 0.9% INJ 10 ML SYR IV SCH (19:40)
== END 2020-07-21 11:23 | disposition home or self-care (01) | DRG 137 ==
LOC: M ED 12:38 → M ED INP 18:31 → ENRESERV 18:59 → M 4MAIN 21:05
PROVIDERS: ADMIT Family Medicine; ATTEND Family Medicine
DX: U07.1 COVID-19 (principal); D68.2 Hereditary deficiency of other clotting factors; M35.00 Sjogren syndrome, unspecified; Z85.850 Personal history of malignant neoplasm of thyroid; E03.9 Hypothyroidism, unspecified; Z79.899 Other long term (current) drug therapy; Z88.2 Allergy status to sulfonamides; Z88.5 Allergy status to narcotic agent; Z88.6 Allergy status to analgesic agent; Z91.018 Allergy to other foods

== ENCOUNTER 2020-07-25 10:48 | Emergency (ER) | payer OTHER ==
[~2020-07-25] VITALS: Ht 167.6 cm; Wt 72.7 kg
[~2020-07-25 10:48] MED LIST changes: +VENTAER INH
--- NOTE | 2020-07-25 11:21 | REP ---
INDICATION: DYSPNEA/COUGH. COMPARISON: 07/20/2020. TECHNIQUE: Single portable AP view of the chest was performed. FINDINGS: There is no acute infiltrate or pulmonary edema. Lungs are clear. The heart is not significantly enlarged. The mediastinal silhouette is unremarkable. The visualized osseous structures are intact. IMPRESSION: No acute pulmonary disease. <Electronically signed by Robbie Farris > 07/25/20 [id number]
[2020-07-25 11:44] LABS: VENOUS BASE EXCESS 3.1 (-2.0-2.0); VENOUS HCO3 28.3 MEQ/L (23.0-27.0); VENOUS O2 SATURATION 80.8 % (60.0-80.0); VENOUS PARTIAL PRESSURE CO2 45.6 mmHg (38.0-50.0); VENOUS PARTIAL PRESSURE O2 42.9 mmHg (30.0-50.0); VENOUS PH 7.411 UNITS (7.330-7.430); VENOUS STANDARD HCO3 26.8 MEQ/L; VENOUS TOTAL CO2 29.7 MEQ/L (24.0-28.0)
[2020-07-25 11:52] LABS: BASO % 0.6 % (0.0-1.0); EOS % 0.2 % (0.0-3.0); HEMATOCRIT 37.3 % (36.0-47.0); HEMOGLOBIN 12.3 g/dl (12.0-15.5); LYMPH # 1.2 10^3/uL (1.5-5.0); MEAN CORPUSCULAR HEMOGLOBIN 29.6 pg (27.0-33.0); MEAN CORPUSCULAR VOLUME 89.9 fl (80.0-96.0); MONO # 0.5 10^3/uL (0.0-0.8); MONO % 9.5 % (2.0-8.0); NEUTROPHILS # 3.4 10^3/uL (1.5-8.5); NEUTROPHILS % 65.1 % (36.0-66.0); PLATELET COUNT, AUTOMATED 182 10^3/uL (150-450); RED BLOOD COUNT 4.15 10^6/uL (4.00-5.40); WHITE BLOOD COUNT 5.2 10^3/uL (4.0-10.0)
[2020-07-25 12:00] LABS: INR 0.98; PROTHROMBIN TIME 13.2 SECONDS (12.5-14.3)
[2020-07-25 12:02] LABS: D-DIMER QUANT 517.29 ng/ml (<500)
[2020-07-25 12:20] LABS: ALBUMIN 3.4 GM/DL (3.2-5.2); ALT/SGPT 18 U/L (12-78); BILIRUBIN,DIRECT 0.1 MG/DL (0.0-0.2); BILIRUBIN,TOTAL 0.5 MG/DL (0.2-1.0); BLOOD UREA NITROGEN 6 MG/DL (7-18); C REACTIVE PROTEIN QUANTITATIV 3.84 MG/DL (0.00-0.30); CALCIUM LEVEL 8.3 MG/DL (8.5-10.1); CARBON DIOXIDE LEVEL 28 MEQ/L (21-32); CHLORIDE LEVEL 105 MEQ/L (98-107); CK-MB VALUE MASS < 1.0 NG/ML (<3.6); CPK CREATINE PHOSPHOKINASE 31 U/L (26-192); CREATININE FOR GFR 0.62 MG/DL (0.55-1.30); FERRITIN 43 NG/ML (8-252); GLOMERULAR FILTRATION RATE > 60.0 (>58); GLUCOSE, FASTING 83 MG/DL (70-100); LDH LACTATE DEHYDROGENASE 98 U/L (84-246); MB/CK RELATIVE INDEX 3.23 (< OR =4); POTASSIUM SERUM 3.6 MEQ/L (3.5-5.1); SODIUM LEVEL 138 MEQ/L (136-145); TROPONIN I < 0.02 NG/ML (< 0.10)
[2020-07-25 12:25] LABS: ERYTHROCYTE SEDIMENTATION RATE 38 mm/hr (0-20)
[2020-07-25 12:46] VITALS: BP 112/72
[2020-07-25] MEDS ORDERED: BENZONATATE 100 MG CAP PO ONE (12:50)
[2020-07-25] MEDS ORDERED: predniSONE 20 MG TAB PO ONE (12:50)
[2020-07-25] MEDS ORDERED: PRED10TA2 PO (12:51)
[2020-07-25] MEDS ORDERED: TESS100C PO (12:59)
--- NOTE | 2020-07-25 20:07 | ECGEPIP ---
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
== END 2020-07-25 13:26 | disposition home or self-care (01) ==
LOC: M ED 10:48
DX: U07.1 COVID-19 (principal); R05 Cough; R56.9 Unspecified convulsions; D68.51 Activated protein C resistance; M35.00 Sjogren syndrome, unspecified; E03.9 Hypothyroidism, unspecified; Z88.2 Allergy status to sulfonamides; Z88.6 Allergy status to analgesic agent; Z79.899 Other long term (current) drug therapy; Z79.890 Hormone replacement therapy
CPT/HCPCS: 36415; 71045; 80048; 80076; 82550; 82553; 82728; 82803; 83605; 83615; 84436; 84443; 85025; 85379; 85610; 85652; 86140; 87040; 93005; 93041; 94760; 99285; J7512

== ENCOUNTER → 2020-08-31 | Outpatient (CLI) | payer OTHER ==
[~2020-08-31] MED LIST changes: -DOXY100C37 PO; +DOXY1CAP62 PO; +PRED10TA2 PO; +TESS100C PO
[2020-08-31 09:31] LABS: BASO # 0.1 10^3/uL (0.0-0.2); BASO % 1.3 % (0.0-1.0); EOS % 0.8 % (0.0-3.0); HEMATOCRIT 37.8 % (36.0-47.0); HEMATOCRIT 38.1 % (36.0-47.0); HEMOGLOBIN 12.2 g/dl (12.0-15.5); LYMPH # 1.4 10^3/uL (1.5-5.0); MEAN CORPUSCULAR HEMOGLOBIN 29.3 pg (27.0-33.0); MEAN CORPUSCULAR VOLUME 91.4 fl (80.0-96.0); MONO # 0.6 10^3/uL (0.0-0.8); MONO % 12.3 % (2.0-8.0); NEUTROPHILS # 2.7 10^3/uL (1.5-8.5); PLATELET COUNT, AUTOMATED 245 10^3/uL (150-450); RED BLOOD COUNT 4.17 10^6/uL (4.00-5.40); WHITE BLOOD COUNT 4.7 10^3/uL (4.0-10.0)
[2020-08-31 10:22] LABS: ALBUMIN 3.8 GM/DL (3.2-5.2); ALT/SGPT 19 U/L (12-78); BILIRUBIN,TOTAL 0.3 MG/DL (0.2-1.0); BLOOD UREA NITROGEN 10 MG/DL (7-18); CARBON DIOXIDE LEVEL 28 MEQ/L (21-32); CHLORIDE LEVEL 107 MEQ/L (98-107); CREATININE FOR GFR 0.67 MG/DL (0.55-1.30); FERRITIN 12 NG/ML (8-252); FREE T4 1.08 NG/DL (0.76-1.46); GLOMERULAR FILTRATION RATE > 60.0 (>58); GLUCOSE, FASTING 89 MG/DL (70-100); IRON (FE) 52 UG/DL (50-170); MAGNESIUM LEVEL 2.1 MG/DL (1.8-2.4); PERCENT SATURATION 14.8 % (13.2-45.0); PHOSPHORUS LEVEL 2.8 MG/DL (2.5-4.9); PTH INTACT 58.5 PG/ML (18.5-88.0); SODIUM LEVEL 140 MEQ/L (136-145); THYROID STIMULATING HORMONE 0.115 uIU/ML (0.358-3.740); TOTAL IRON BINDING CAPACITY 351 UG/DL (250-450); TOTAL PROTEIN 6.7 GM/DL (6.4-8.2); TOTAL T3 124.3 NG/DL (60.0-181.0); VITAMIN B12 LEVEL 328 PG/ML (247-911)
== END ==
LOC: M LAB 08:22
PROVIDERS: ATTEND Internal Medicine
DX: R53.83 Other fatigue (principal); E83.51 Hypocalcemia

== ENCOUNTER → 2020-09-14 | Outpatient (CLI) | payer OTHER ==
[~2020-09-14] MED LIST changes: +DOXY-443 PO; -DOXY1CAP62 PO; +ISOVUE-370 76% 100ML VIAL ONE; +LEFL10TA12 PO; -LEFL20TA10 PO
== END ==
LOC: M PLAIMG 13:45
PROVIDERS: ATTEND Family Medicine
DX: R93.89 Abnormal findings on diagnostic imaging of other specified body structures (principal)

== ENCOUNTER → 2020-09-19 | Outpatient (REF) | payer OTHER ==
[~2020-09-19] MED LIST changes: -DOXY-443 PO; +DOXY1CAP62 PO; -ISOVUE-370 76% 100ML VIAL ONE; -LEFL10TA12 PO; +LEFL20TA10 PO
== END ==
LOC: M LAB REF 17:43
PROVIDERS: ATTEND Internal Medicine Nephrology
DX: N18.9 Chronic kidney disease, unspecified (principal); D63.1 Anemia in chronic kidney disease; E83.42 Hypomagnesemia

== ENCOUNTER → 2020-10-23 | Outpatient (CLI) | payer OTHER ==
--- NOTE | 2020-10-23 09:18 | REP ---
INDICATION: Z91.89 AT HIGH RISK FOR BREAST CANCER. COMPARISON: Multiple TECHNIQUE: Digital screening mammography was carried out bilaterally in the CC and MLO projections using both 2D and 3D modalities and compared to the prior exams. By history, the patient has no complaints of a palpable breast abnormality or other significant breast complaints. FINDINGS: The breasts are unchanged in size and shape. Once again, dense heterogenous somewhat nodular fibroglandular elements are seen bilaterally to such a degree that the sensitivity of the mammogram in detecting cancer is decreased. In the left breast near the 6 o'clock position there is a potential toni density. No other suspicious features are seen in either breast. Stable benign calcifications are again seen bilaterally. There is no skin thickening or nipple retraction. The Volpara volumetric breast density pattern is C. IMPRESSION: BIRADS/ACR category 0 mammogram. Potential toni density left breast as described above for which diagnostic digital DBT spot compression views are recommended in the CC and MLO projections. Diagnostic ultrasonography may also be indicated. This patient's Tyrer-Cuzick lifetime breast cancer risk assessment score is 15.8%. This mammogram was interpreted with the aid of an FDA-approved computer-aided detection system. The patient states she had a clinical breast exam in April 2020. The patient letter being requested is M0. RECOMMENDATION: As above <Electronically signed by David eNvarez > 10/23/20 0914
== END ==
LOC: M WHC 06:52
PROVIDERS: ATTEND Surgery
DX: Z91.89 Other specified personal risk factors, not elsewhere classified (principal); Z12.31 Encounter for screening mammogram for malignant neoplasm of breast

== ENCOUNTER → 2020-10-30 | Outpatient (CLI) | payer OTHER ==
--- NOTE | 2020-10-30 14:58 | REP ---
INDICATION: ADDITIONAL VIEWS LT BREAST. COMPARISON: Comparison is made with prior mammography from October 23, 2020, March 26, 2020, July 22, 2019, and May 19, 2017. TECHNIQUE: Magnified focal spot-compression CC, MLO, and non magnified true mL views of the left breast are obtained. 3D tomography was deployed in the mediolateral projection. This mammogram was interpreted with the aid of an FDA-approved computer-aided detection system. FINDINGS: Breast parenchyma remains heterogeneously dense in a pattern which may inhibit the sensitivity mammography. This is unchanged. The diagnostic images of the left breast demonstrate that the area in question on the recent screening study compresses awaited normal stromal elements which are felt to be unchanged from remote prior mammography. No nodular toni density is seen. No architectural distortion or microcalcification is observed. 3D tomography is unremarkable. The Volpara volumetric breast density pattern is C. IMPRESSION: BIRADS/ACR category 1 negative left breast mammographic findings. This patient's Tyrer-Cuzick lifetime breast cancer risk assessment score is 15.8%. RECOMMENDATION: Repeat screening mammography recommended 1 year (for women over 40). The patient letter being requested is M1 dense. <Electronically signed by Bg Rose > 10/30/20 [id number]
== END ==
LOC: M WHC 13:40
PROVIDERS: ATTEND Surgery
DX: R92.2 Inconclusive mammogram (principal)
CPT/HCPCS: 77065; G0279

== ENCOUNTER → 2020-11-06 | Outpatient (CLI) | payer OTHER ==
[~2020-11-06] MED LIST changes: +DOXY-443 PO; -DOXY1CAP62 PO; +E-Z-GAS II EFFERVESCENT PACKET (SODIUM BICARB./CITRIC ACID/SIMETHICONE) As Ordered ONE; +E-Z-HD 98% w/w 340GM SUSP BTL As Ordered ONE; +E-Z-PAQUE 96% w/w SUSP 176GM BTL As Ordered ONE; +ISOVUE-370 76% 100ML VIAL As Ordered ONE; +LEFL10TA12 PO; -LEFL20TA10 PO
== END ==
LOC: M RAD 07:43
PROVIDERS: ATTEND Otolaryngology
DX: R13.10 Dysphagia, unspecified (principal); K21.9 Gastro-esophageal reflux disease without esophagitis
CPT/HCPCS: 70491; 74220; Q9967

== ENCOUNTER → 2020-12-27 | Outpatient (CLI) | payer OTHER ==
[~2020-12-27] MED LIST changes: -E-Z-GAS II EFFERVESCENT PACKET (SODIUM BICARB./CITRIC ACID/SIMETHICONE) As Ordered ONE; -E-Z-HD 98% w/w 340GM SUSP BTL As Ordered ONE; -E-Z-PAQUE 96% w/w SUSP 176GM BTL As Ordered ONE; -ISOVUE-370 76% 100ML VIAL As Ordered ONE
[2020-12-27 09:37] LABS: HEMATOCRIT 38.6 % (36.0-47.0); HEMOGLOBIN 12.7 g/dl (12.0-15.5); MEAN CORPUSCULAR HEMOGLOBIN 29.4 pg (27.0-33.0); MEAN CORPUSCULAR HGB CONC 32.9 g/dl (32.0-36.5); MEAN CORPUSCULAR VOLUME 89.4 fl (80.0-96.0); PLATELET COUNT, AUTOMATED 230 10^3/uL (150-450); RED BLOOD COUNT 4.32 10^6/uL (4.00-5.40); WHITE BLOOD COUNT 5.4 10^3/uL (4.0-10.0)
[2020-12-27 10:12] LABS: ALBUMIN 3.7 GM/DL (3.2-5.2); ALT/SGPT 17 U/L (12-78); BILIRUBIN,TOTAL 0.5 MG/DL (0.2-1.0); BLOOD UREA NITROGEN 7 MG/DL (7-18); CALCIUM LEVEL 8.9 MG/DL (8.5-10.1); CARBON DIOXIDE LEVEL 28 MEQ/L (21-32); CHLORIDE LEVEL 107 MEQ/L (98-107); CHOLESTEROL LEVEL 181 MG/DL (<200); CHOLESTEROL RISK RATIO 2.919 (<5); CREATININE FOR GFR 0.71 MG/DL (0.55-1.30); FREE T4 1.01 NG/DL (0.76-1.46); GLOMERULAR FILTRATION RATE > 60.0 (>58); GLUCOSE, FASTING 82 MG/DL (70-100); HDL CHOLESTEROL 62 MG/DL (>40); LDL CHOLESTEROL 95 MG/DL (<100); NON-HDL-C 119 MG/DL; POTASSIUM SERUM 4.2 MEQ/L (3.5-5.1); SODIUM LEVEL 139 MEQ/L (136-145); THYROID STIMULATING HORMONE 0.584 uIU/ML (0.358-3.740); TRIGLYCERIDES LEVEL 119 MG/DL (<150)
== END ==
LOC: M LAB 08:02
PROVIDERS: ATTEND Family Medicine
DX: Z13.220 Encounter for screening for lipoid disorders (principal); R53.83 Other fatigue; R00.2 Palpitations

== ENCOUNTER → 2021-03-08 | Outpatient (CLI) | payer OTHER ==
[2021-03-08 14:56] LABS: BASO # 0.1 10^3/uL (0.0-0.2); EOS # 0.1 10^3/uL (0.0-0.5); EOS % 1.4 % (0.0-3.0); HEMATOCRIT 38.8 % (36.0-47.0); HEMOGLOBIN 12.6 g/dl (12.0-15.5); LYMPH # 1.5 10^3/uL (1.5-5.0); LYMPH % 30.3 % (24.0-44.0); MEAN CORPUSCULAR HEMOGLOBIN 29.6 pg (27.0-33.0); MEAN CORPUSCULAR HGB CONC 32.5 g/dl (32.0-36.5); MEAN CORPUSCULAR VOLUME 91.3 fl (80.0-96.0); MONO # 0.4 10^3/uL (0.0-0.8); MONO % 8.8 % (2.0-8.0); NEUTROPHILS # 2.9 10^3/uL (1.5-8.5); NEUTROPHILS % 58.3 % (36.0-66.0); PLATELET COUNT, AUTOMATED 243 10^3/uL (150-450); RED BLOOD COUNT 4.25 10^6/uL (4.00-5.40)
[2021-03-08 15:02] LABS: HEMATOCRIT 38.8 % (36.0-47.0)
[2021-03-08 15:53] LABS: ALBUMIN 3.9 GM/DL (3.2-5.2); ALT/SGPT 25 U/L (12-78); BILIRUBIN,TOTAL 0.4 MG/DL (0.2-1.0); BLOOD UREA NITROGEN 11 MG/DL (7-18); CALCIUM LEVEL 8.6 MG/DL (8.5-10.1); CARBON DIOXIDE LEVEL 29 MEQ/L (21-32); CHLORIDE LEVEL 106 MEQ/L (98-107); CREATININE FOR GFR 0.68 MG/DL (0.55-1.30); FERRITIN 19 NG/ML (8-252); GLOMERULAR FILTRATION RATE > 60.0 (>58); GLUCOSE, FASTING 94 MG/DL (70-100); IRON (FE) 87 UG/DL (50-170); MAGNESIUM LEVEL 2.1 MG/DL (1.8-2.4); PERCENT SATURATION 23.4 % (13.2-45.0); PHOSPHORUS LEVEL 3.3 MG/DL (2.5-4.9); POTASSIUM SERUM 4.2 MEQ/L (3.5-5.1); PTH INTACT 87.9 PG/ML (18.5-88.0); SODIUM LEVEL 140 MEQ/L (136-145); TOTAL 25(OH) VITAMIN D 17.3 NG/ML (30.0-100.0); TOTAL IRON BINDING CAPACITY 372 UG/DL (250-450); TOTAL PROTEIN 7.4 GM/DL (6.4-8.2); TOTAL T3 67.3 NG/DL (60.0-181.0); VITAMIN B12 LEVEL 384 PG/ML (247-911)
== END ==
LOC: M LAB 13:35
PROVIDERS: ATTEND Internal Medicine
DX: C73 Malignant neoplasm of thyroid gland (principal)

== ENCOUNTER → 2021-03-12 | Outpatient (CLI) | payer OTHER ==
--- NOTE | 2021-03-12 14:17 | REP ---
INDICATION: THYROID CA, THRYOID REMOVED. COMPARISON: 06/16/2019 TECHNIQUE: Real-time sonographic evaluation of the post thyroidectomy surgical bed. FINDINGS: In the central neck there are no masses. There is no evidence of adenopathy. The paratracheal and paraesophageal regions in the post operative thyroid bed are unchanged and are again seen to be within normal limits. In the right lateral neck there are no masses. There is no evidence of adenopathy. No lymph nodes are identified. In the left lateral neck there are 3 nodules. The measure 1.5 x 0.4 x 1.2 cm, 0.5 x 0.3 x 0.5 cm, and 1.1 x 0.2 x 0.7 cm. The 2 larger nodules appear unchanged compared to the prior exam. The 5 mm size nodule seen today was either not present or not imaged on the prior exam. IMPRESSION: There is been no significant change compared to the prior exam with findings as described above. Continued surveillance is recommended. <Electronically signed by David Nevarez > 03/12/21 [id number]
== END ==
LOC: M WHC 12:27
PROVIDERS: ATTEND Internal Medicine
DX: C73 Malignant neoplasm of thyroid gland (principal)

== ENCOUNTER → 2021-04-19 | Outpatient (CLI) | payer OTHER ==
[~2021-04-19] MED LIST changes: +PROHANCE 279.3MG/ML 15ML VIAL ONE
== END ==
LOC: M PLAIMG 14:22
PROVIDERS: ATTEND Surgery
DX: N60.01 Solitary cyst of right breast (principal); N60.02 Solitary cyst of left breast; Z91.89 Other specified personal risk factors, not elsewhere classified

== ENCOUNTER → 2021-09-08 | Outpatient (CLI) | payer OTHER ==
[~2021-09-08] MED LIST changes: -PROHANCE 279.3MG/ML 15ML VIAL ONE; +VITA-199 PO
== END ==
LOC: M LABSMTC 09:58
PROVIDERS: ATTEND Anesthesiology
DX: Z20.828 Contact with and (suspected) exposure to other viral communicable diseases (principal); Z11.59 Encounter for screening for other viral diseases

== ENCOUNTER 2021-09-13 07:19 | Day surgery (SDC) | payer OTHER ==
[~2021-09-13] VITALS: Ht 170.2 cm; Wt 73.0 kg
[~2021-09-13 07:19] MED LIST changes: +NS 1,000 ML IV ONE
[2021-09-13] MEDS ORDERED: propofoL 200 MG/20 ML VIAL As Ordered ONE ×2 (09:07→09:30)
[2021-09-13] MEDS ORDERED: LIDOCAINE 2% INJ 100 MG/5 ML SYRINGE As Ordered ONE (09:11)
[2021-09-13 10:00] VITALS: BP 118/76
== END 2021-09-13 10:16 | disposition home or self-care (01) ==
LOC: M OPP 07:19
PROVIDERS: ATTEND Internal Medicine Gastroenterology
DX: Z12.11 Encounter for screening for malignant neoplasm of colon (principal); Z80.0 Family history of malignant neoplasm of digestive organs; K64.8 Other hemorrhoids; Z86.19 Personal history of other infectious and parasitic diseases; Z86.14 Personal history of Methicillin resistant Staphylococcus aureus infection; D68.2 Hereditary deficiency of other clotting factors; M32.9 Systemic lupus erythematosus, unspecified; Z79.899 Other long term (current) drug therapy; Z88.1 Allergy status to other antibiotic agents; Z88.2 Allergy status to sulfonamides; Z88.5 Allergy status to narcotic agent; Z88.6 Allergy status to analgesic agent; Z88.8 Allergy status to other drugs, medicaments and biological substances; Z91.018 Allergy to other foods; Z91.040 Latex allergy status; Z91.048 Other nonmedicinal substance allergy status; Z92.3 Personal history of irradiation

== ENCOUNTER → 2021-10-07 | Outpatient (CLI) | payer OTHER ==
[~2021-10-07] MED LIST changes: -NS 1,000 ML IV ONE
== END ==
LOC: M RAD 17:10
PROVIDERS: ATTEND Physician Assistant
DX: M25.572 Pain in left ankle and joints of left foot (principal)

== ENCOUNTER → 2021-10-14 | Outpatient (CLI) | payer OTHER ==
[~2021-10-14] MED LIST changes: +BENZ200C70 PO
== END ==
LOC: M LABSMTC 11:07
PROVIDERS: ATTEND Pediatrics
DX: Z20.828 Contact with and (suspected) exposure to other viral communicable diseases (principal); Z11.59 Encounter for screening for other viral diseases
CPT/HCPCS: 87635; C9803

== ENCOUNTER → 2021-10-28 | Outpatient (CLI) | payer OTHER ==
[2021-10-28 16:35] LABS: FREE T4 0.97 NG/DL (0.76-1.46); THYROID STIMULATING HORMONE 1.76 uIU/ML (0.358-3.740)
[2021-10-28 17:10] LABS: TOTAL T3 104.9 NG/DL (60.0-181.0)
== END ==
LOC: M LAB 15:36
PROVIDERS: ATTEND Physician Assistant
DX: E89.0 Postprocedural hypothyroidism (principal); Z85.850 Personal history of malignant neoplasm of thyroid

== ENCOUNTER 2021-11-14 13:59 | Emergency (ER) | payer OTHER ==
[~2021-11-14] VITALS: Ht 170.2 cm; Wt 76.7 kg
[2021-11-14] MEDS ORDERED: DOXY-443 PO (17:35)
[2021-11-14 18:05] VITALS: BP 128/61
== END 2021-11-14 18:06 | disposition home or self-care (01) ==
LOC: M ED 13:59
DX: L03.115 Cellulitis of right lower limb (principal); G40.89 Other seizures; M54.50 Low back pain, unspecified; M32.9 Systemic lupus erythematosus, unspecified; Z88.2 Allergy status to sulfonamides; Z88.5 Allergy status to narcotic agent; Z91.040 Latex allergy status; Z91.02 Food additives allergy status; Z79.899 Other long term (current) drug therapy

== ENCOUNTER → 2021-12-06 | Outpatient (CLI) | payer OTHER | LOC: M SOG 15:57 | PROVIDERS: ATTEND Orthopaedic Surgery Adult Reconstructive Orthopaedic Surgery | DX: M25.561 Pain in right knee (principal) ==

== ENCOUNTER → 2021-12-23 | Outpatient (CLI) | payer OTHER | LOC: M RAD 12:46 | PROVIDERS: ATTEND Orthopaedic Surgery Adult Reconstructive Orthopaedic Surgery | DX: M94.261 Chondromalacia, right knee (principal); M71.21 Synovial cyst of popliteal space [Baker], right knee; R22.41 Localized swelling, mass and lump, right lower limb ==

== ENCOUNTER → 2022-01-06 | Outpatient (CLI) | payer OTHER | LOC: M WHC 10:58 | PROVIDERS: ATTEND Surgery | DX: Z12.31 Encounter for screening mammogram for malignant neoplasm of breast (principal); Z91.89 Other specified personal risk factors, not elsewhere classified ==

== ENCOUNTER 2022-02-19 08:44 | Emergency (ER) | payer OTHER ==
[~2022-02-19] VITALS: Ht 170.2 cm; Wt 77.2 kg
[2022-02-19] MEDS ORDERED: HYDR1CRE30 TOP (10:38)
[2022-02-19] MEDS ORDERED: HYDROCORTISONE 1% CREAM 30GM TOP ONE (10:40)
[2022-02-19 10:48] VITALS: BP 137/81
== END 2022-02-19 11:13 | disposition home or self-care (01) ==
LOC: M ED 08:44
DX: T21.07XA Burn of unspecified degree of female genital region, initial encounter (principal); T31.0 Burns involving less than 10% of body surface; J45.909 Unspecified asthma, uncomplicated; C73 Malignant neoplasm of thyroid gland; M54.30 Sciatica, unspecified side; M32.9 Systemic lupus erythematosus, unspecified; Z88.2 Allergy status to sulfonamides; Z88.6 Allergy status to analgesic agent; Z91.040 Latex allergy status; Z91.018 Allergy to other foods; Z79.899 Other long term (current) drug therapy; Y93.9 Activity, unspecified

== ENCOUNTER → 2022-03-05 | Outpatient (REF) | payer OTHER ==
[~2022-03-05] MED LIST changes: +HYDR1CRE30 TOP
[2022-03-05 13:39] LABS: APPEARANCE, URINE MANUAL CLEAR (CLEAR); BILIRUBIN, URINE MANUAL NEGATIVE (NEGATIVE); BLOOD URINE MANUAL TRACE (NEGATIVE); COLOR, URINE MANUAL YELLOW (YELLOW); GLUCOSE, URINE (UA) MANUAL NEGATIVE (NEGATIVE); KETONE, URINE MANUAL NEGATIVE (NEGATIVE); LEUKOCYTE ESTERASE, URINE MAN NEGATIVE (NEGATIVE); NITRITE, URINE MANUAL NEGATIVE (NEGATIVE); PROTEIN, URINE MANUAL NEGATIVE (NEGATIVE); SPECIFIC GRAVITY,URINE MANUAL 1.015 (1.002-1.035); UROBILINOGEN, URINE MANUAL NORMAL (NORMAL)
[2022-03-05 13:54] LABS: BACTERIA, URINE SMALL AMOUNT; HYALINE CAST, URINE NONE SEEN /lpf (0-1); RBC, URINE 0-1 /hpf (0-3); SQUAMOUS EPITHELIAL CELL URINE SMALL AMOUNT /hpf (SMALL AMT); WBC, URINE 0-1 /hpf (0-3)
== END ==
LOC: M SFHCPLAZ 12:36
PROVIDERS: ATTEND Physician Assistant
DX: R30.0 Dysuria (principal)

== ENCOUNTER → 2022-04-07 | Outpatient (CLI) | payer OTHER ==
[2022-04-07 17:55] LABS: FREE T4 0.93 NG/DL (0.89-1.76)
[2022-04-07 17:56] LABS: THYROID STIMULATING HORMONE 0.463 uIU/ML (0.55-4.78); TOTAL T3 104.5 NG/DL (60.0-181.0)
[2022-04-07 17:58] LABS: FREE THYROXINE INDEX 2.9 % (1.3-4.8); T UPTAKE 31.7 % (22.5-37.0)
== END ==
LOC: M LAB 16:01
PROVIDERS: ATTEND Internal Medicine
DX: E89.0 Postprocedural hypothyroidism (principal)

== ENCOUNTER → 2022-06-05 | Outpatient (CLI) | payer OTHER ==
[2022-06-05 10:58] LABS: BASO # 0.1 10^3/uL (0.0-0.2); EOS # 0.1 10^3/uL (0.0-0.5); HEMATOCRIT 37.7 % (36.0-47.0); HEMOGLOBIN 12.1 g/dl (12.0-15.5); LYMPH # 1.6 10^3/uL (1.5-5.0); LYMPH % 24.6 % (24.0-44.0); MEAN CORPUSCULAR HEMOGLOBIN 29.2 pg (27.0-33.0); MEAN CORPUSCULAR HGB CONC 32.1 g/dl (32.0-36.5); MEAN CORPUSCULAR VOLUME 90.8 fl (80.0-96.0); MONO # 0.4 10^3/uL (0.0-0.8); MONO % 6.3 % (2.0-8.0); NEUTROPHILS # 4.2 10^3/uL (1.5-8.5); NEUTROPHILS % 66.5 % (36.0-66.0); PLATELET COUNT, AUTOMATED 275 10^3/uL (150-450); RED BLOOD COUNT 4.15 10^6/uL (4.00-5.40); WHITE BLOOD COUNT 6.3 10^3/uL (4.0-10.0)
[2022-06-05 11:19] LABS: ALBUMIN 3.7 G/DL (3.2-5.2); ALKALINE PHOSPHATASE 88 U/L (46-116); ALT/SGPT 41 U/L (7.0-40); AST/SGOT 24 U/L (<34); BILIRUBIN,TOTAL 0.2 MG/DL (0.3-1.2); BLOOD UREA NITROGEN 13 MG/DL (9-23); CALCIUM LEVEL 8.8 MG/DL (8.5-10.1); CARBON DIOXIDE LEVEL 29 MMOL/L (20-31); CHLORIDE LEVEL 105 MMOL/L (98-107); CREATININE FOR GFR 0.61 MG/DL (0.55-1.30); FREE T3 2.6 PG/ML (2.3-4.2); GLOMERULAR FILTRATION RATE > 60.0 (>58); GLUCOSE, FASTING 78 MG/DL (60-100); POTASSIUM SERUM 4.2 MMOL/L (3.5-5.1); SODIUM LEVEL 138 MMOL/L (136-145); THYROID STIMULATING HORMONE 1.193 uIU/ML (0.55-4.78); TOTAL PROTEIN 6.8 G/DL (5.7-8.2)
[2022-06-05 11:21] LABS: THYROID PEROXIDASE ANTIBODY < 28.0 U/ML (<60.0)
[2022-06-05 12:06] LABS: ERYTHROCYTE SEDIMENTATION RATE 35 mm/hr (0-20)
== END ==
LOC: M PLALAB 08:26
PROVIDERS: ATTEND Physician Assistant
DX: R51.9 Headache, unspecified (principal)

== ENCOUNTER → 2022-06-13 | Outpatient (CLI) | payer OTHER ==
[~2022-06-13] MED LIST changes: +PRED15SO24 PO; -PRED5SOL10 PO
[2022-06-13 14:50] LABS: LIPASE 20 U/L (12-53)
[2022-06-13 14:53] LABS: ALBUMIN 3.6 G/DL (3.2-5.2); ALKALINE PHOSPHATASE 91 U/L (46-116); ALT/SGPT 19 U/L (7.0-40); AST/SGOT 9 U/L (<34); BILIRUBIN,TOTAL 0.2 MG/DL (0.3-1.2); BLOOD UREA NITROGEN 10 MG/DL (9-23); CALCIUM LEVEL 8.5 MG/DL (8.5-10.1); CARBON DIOXIDE LEVEL 29 MMOL/L (20-31); CHLORIDE LEVEL 105 MMOL/L (98-107); GLOMERULAR FILTRATION RATE > 60.0 (>58); GLUCOSE, FASTING 83 MG/DL (60-100); POTASSIUM SERUM 4.2 MMOL/L (3.5-5.1); SODIUM LEVEL 139 MMOL/L (136-145); TOTAL PROTEIN 6.7 G/DL (5.7-8.2)
[2022-06-13 15:00] LABS: BASO # 0.1 10^3/uL (0.0-0.2); BASO % 0.4 % (0.0-1.0); EOS % 0.2 % (0.0-3.0); HEMATOCRIT 38.1 % (36.0-47.0); HEMOGLOBIN 12.3 g/dl (12.0-15.5); LYMPH # 1.9 10^3/uL (1.5-5.0); LYMPH % 14.7 % (24.0-44.0); MEAN CORPUSCULAR HGB CONC 32.3 g/dl (32.0-36.5); MEAN CORPUSCULAR VOLUME 89.9 fl (80.0-96.0); MONO # 0.9 10^3/uL (0.0-0.8); MONO % 6.9 % (2.0-8.0); NEUTROPHILS # 10.1 10^3/uL (1.5-8.5); NEUTROPHILS % 76.6 % (36.0-66.0); PLATELET COUNT, AUTOMATED 296 10^3/uL (150-450); RED BLOOD COUNT 4.24 10^6/uL (4.00-5.40); WHITE BLOOD COUNT 13.1 10^3/uL (4.0-10.0)
[2022-06-13 15:31] LABS: ERYTHROCYTE SEDIMENTATION RATE 20 mm/hr (0-20)
== END ==
LOC: M PLALAB 11:26
PROVIDERS: ATTEND Physician Assistant
DX: R10.12 Left upper quadrant pain (principal); R10.13 Epigastric pain

== ENCOUNTER 2022-06-14 16:27 | Emergency (ER) | payer OTHER ==
[~2022-06-14] VITALS: Ht 167.6 cm; Wt 79.6 kg
[2022-06-14 17:30] LABS: BASO # 0.1 10^3/uL (0.0-0.2); BASO % 0.5 % (0.0-1.0); EOS # 0.1 10^3/uL (0.0-0.5); EOS % 0.6 % (0.0-3.0); HEMATOCRIT 36.7 % (36.0-47.0); HEMOGLOBIN 11.8 g/dl (12.0-15.5); LYMPH # 2.9 10^3/uL (1.5-5.0); LYMPH % 21.9 % (24.0-44.0); MEAN CORPUSCULAR HEMOGLOBIN 28.9 pg (27.0-33.0); MEAN CORPUSCULAR HGB CONC 32.2 g/dl (32.0-36.5); MEAN CORPUSCULAR VOLUME 89.7 fl (80.0-96.0); MONO % 7.4 % (2.0-8.0); NEUTROPHILS # 9.1 10^3/uL (1.5-8.5); NEUTROPHILS % 67.9 % (36.0-66.0); PLATELET COUNT, AUTOMATED 268 10^3/uL (150-450); RED BLOOD COUNT 4.09 10^6/uL (4.00-5.40); WHITE BLOOD COUNT 13.3 10^3/uL (4.0-10.0)
[2022-06-14 17:41] LABS: INR 0.85; PROTHROMBIN TIME 11.8 SECONDS (12.5-14.5)
[2022-06-14 17:42] LABS: PARTIAL THROMBOPLASTIN TIME 22.8 SECONDS (24.8-34.2)
[2022-06-14 17:51] LABS: ALBUMIN 3.6 G/DL (3.2-5.2); ALKALINE PHOSPHATASE 85 U/L (46-116); ALT/SGPT 19 U/L (7.0-40); AST/SGOT 26 U/L (<34); BILIRUBIN,DIRECT < 0.1 MG/DL (<0.4); BILIRUBIN,TOTAL 0.2 MG/DL (0.3-1.2); BLOOD UREA NITROGEN 14 MG/DL (9-23); CARBON DIOXIDE LEVEL 30 MMOL/L (20-31); CHLORIDE LEVEL 102 MMOL/L (98-107); CK-MB VALUE MASS < 1.0 NG/ML (<3.6); CREATININE FOR GFR 0.67 MG/DL (0.55-1.30); GLOMERULAR FILTRATION RATE > 60.0 (>58); GLUCOSE, FASTING 81 MG/DL (60-100); POTASSIUM SERUM 4.3 MMOL/L (3.5-5.1); SODIUM LEVEL 138 MMOL/L (136-145); TOTAL PROTEIN 6.7 G/DL (5.7-8.2)
[2022-06-14 18:04] LABS: CPK CREATINE PHOSPHOKINASE 57 U/L (34-145); MB/CK RELATIVE INDEX 1.75 (< OR =4)
[2022-06-14] MEDS ORDERED: ISOVUE-370 76% 100ML VIAL As Ordered ONE (18:06)
[2022-06-14 19:16] LABS: CK-MB VALUE MASS < 1.0 NG/ML (<3.6)
[2022-06-14 19:18] LABS: CPK CREATINE PHOSPHOKINASE 46 U/L (34-145); MB/CK RELATIVE INDEX 2.17 (< OR =4)
[2022-06-14 21:00] VITALS: BP 116/76
== END 2022-06-14 21:06 | disposition home or self-care (01) ==
LOC: M ED 16:27
DX: R07.9 Chest pain, unspecified (principal); R20.2 Paresthesia of skin; E55.9 Vitamin D deficiency, unspecified; M32.9 Systemic lupus erythematosus, unspecified; N83.209 Unspecified ovarian cyst, unspecified side; D69.3 Immune thrombocytopenic purpura; D68.2 Hereditary deficiency of other clotting factors; N80.9 Endometriosis, unspecified; G40.209 Localization-related (focal) (partial) symptomatic epilepsy and epileptic syndromes with complex partial seizures, not intractable, without status epilepticus; Z88.2 Allergy status to sulfonamides; Z88.5 Allergy status to narcotic agent; Z88.6 Allergy status to analgesic agent; Z88.8 Allergy status to other drugs, medicaments and biological substances; Z91.018 Allergy to other foods
CPT/HCPCS: 36415; 70450; 70544; 70551; 71045; 71275; 80048; 80076; 82550; 82553; 85025; 85610; 85730; 93005; 93041; 94760; 99285; Q9967

== ENCOUNTER → 2022-07-11 | Outpatient (CLI) | payer OTHER ==
[~2022-07-11] MED LIST changes: +E-Z-GAS II EFFERVESCENT PACKET (SODIUM BICARB./CITRIC ACID/SIMETHICONE) As Ordered ONE; +E-Z-HD 98% w/w 340GM SUSP BTL As Ordered ONE; +E-Z-PAQUE 96% w/w SUSP 176GM BTL As Ordered ONE; +POTA-298 PO; -POTA1TAB14 PO
== END ==
LOC: M RAD 09:11
PROVIDERS: ATTEND Physician Assistant
DX: R10.12 Left upper quadrant pain (principal); R10.13 Epigastric pain

== ENCOUNTER 2022-09-19 17:13 | Emergency (ER) | payer OTHER ==
[~2022-09-19] VITALS: Ht 170.2 cm; Wt 78.6 kg
[2022-09-19 17:13] VITALS: TEMP 98.1
[~2022-09-19 17:13] MED LIST changes: -E-Z-GAS II EFFERVESCENT PACKET (SODIUM BICARB./CITRIC ACID/SIMETHICONE) As Ordered ONE; -E-Z-HD 98% w/w 340GM SUSP BTL As Ordered ONE; -E-Z-PAQUE 96% w/w SUSP 176GM BTL As Ordered ONE
[2022-09-19 20:47] VITALS: BP 133/80; O2SAT 99
== END 2022-09-19 22:13 | disposition home or self-care (01) ==
LOC: M ED 17:13
DX: S93.402A Sprain of unspecified ligament of left ankle, initial encounter (principal); M32.9 Systemic lupus erythematosus, unspecified; J45.909 Unspecified asthma, uncomplicated; D68.2 Hereditary deficiency of other clotting factors; Y92.410 Unspecified street and highway as the place of occurrence of the external cause; Z88.2 Allergy status to sulfonamides; Z88.5 Allergy status to narcotic agent; Z88.6 Allergy status to analgesic agent; Z91.018 Allergy to other foods; Z91.040 Latex allergy status; Z79.899 Other long term (current) drug therapy

== ENCOUNTER → 2022-10-01 | Outpatient (CLI) | payer OTHER ==
[2022-10-01 10:33] LABS: APPEARANCE, URINE CLEAR (CLEAR); BACTERIA, URINE AUTO NEGATIVE (NEGATIVE); BILIRUBIN, URINE AUTO NEGATIVE (NEGATIVE); BLOOD, URINE BLOOD 1+ (NEGATIVE); COLOR, URINE YELLOW (YELLOW); GLUCOSE, URINE (UA) AUTO NEGATIVE (NEGATIVE); KETONE, URINE AUTO NEGATIVE (NEGATIVE); LEUKOCYTE ESTERASE, URINE AUTO NEGATIVE (NEGATIVE); NITRITE, URINE AUTO NEGATIVE (NEGATIVE); PROTEIN, URINE AUTO NEGATIVE (NEGATIVE); RBC, URINE AUTO 1 /HPF (0-3); SPECIFIC GRAVITY URINE AUTO 1.015 (1.002-1.035); SQUAMOUS EPITHELIAL CELL UR AU 0 /HPF (0-6); UROBILINOGEN, URINE AUTO 0.2 mg/dL (0.0-2.0); WBC, URINE AUTO 0 /HPF (0-3)
[2022-10-01 10:37] LABS: BASO % 0.9 % (0.0-1.0); EOS % 0.9 % (0.0-3.0); HEMATOCRIT 38.8 % (36.0-47.0); HEMOGLOBIN 12.7 g/dl (12.0-15.5); LYMPH # 1.4 10^3/uL (1.5-5.0); MEAN CORPUSCULAR HEMOGLOBIN 29.3 pg (27.0-33.0); MEAN CORPUSCULAR HGB CONC 32.7 g/dl (32.0-36.5); MEAN CORPUSCULAR VOLUME 89.6 fl (80.0-96.0); MONO # 0.3 10^3/uL (0.0-0.8); MONO % 7.8 % (2.0-8.0); NEUTROPHILS # 2.5 10^3/uL (1.5-8.5); NEUTROPHILS % 56.9 % (36.0-66.0); PLATELET COUNT, AUTOMATED 212 10^3/uL (150-450); RED BLOOD COUNT 4.33 10^6/uL (4.00-5.40); WHITE BLOOD COUNT 4.4 10^3/uL (4.0-10.0)
[2022-10-01 11:04] LABS: FOLLICLE STIMULATING HORMONE 77.7 mIU/ML; FREE T4 1.18 NG/DL (0.89-1.76)
[2022-10-01 11:05] LABS: C REACTIVE PROTEIN QUANTITATIV 0.6 MG/DL (<1.0); LUTEINIZING HORMONE 35.6 mIU/ML; THYROID STIMULATING HORMONE 0.347 uIU/ML (0.55-4.78)
[2022-10-01 11:06] LABS: COMPLEMENT C3 145.8 MG/DL (90.0-170.0)
[2022-10-01 11:07] LABS: ERYTHROCYTE SEDIMENTATION RATE 18 mm/hr (0-20)
== END ==
LOC: M PLALAB 08:43
PROVIDERS: ATTEND Family Medicine
DX: E89.0 Postprocedural hypothyroidism (principal); M32.9 Systemic lupus erythematosus, unspecified; R23.2 Flushing

== ENCOUNTER → 2022-10-17 | Outpatient (CLI) | payer OTHER | LOC: M SOG 10:55 | PROVIDERS: ATTEND Physician Assistant | DX: M25.572 Pain in left ankle and joints of left foot (principal) ==

== ENCOUNTER → 2022-10-27 | Outpatient (CLI) | payer OTHER | LOC: M RAD 06:44 | PROVIDERS: ATTEND Internal Medicine | DX: C73 Malignant neoplasm of thyroid gland (principal) ==

== ENCOUNTER → 2022-10-27 | Outpatient (CLI) | payer OTHER ==
[2022-10-27 08:10] LABS: THYROID STIMULATING HORMONE 0.265 uIU/ML (0.55-4.78)
[2022-10-27 08:11] LABS: FREE T4 1.16 NG/DL (0.89-1.76)
[2022-10-27 13:22] LABS: THYROGLOBULIN ANTIBODY < 15.0 U/ML (<60.0)
== END ==
LOC: M LAB 06:49
PROVIDERS: ATTEND Nurse Practitioner
DX: C73 Malignant neoplasm of thyroid gland (principal); E89.0 Postprocedural hypothyroidism

== ENCOUNTER → 2022-10-30 | Outpatient (CLI) | payer OTHER | LOC: M PLAIMG 15:31 | PROVIDERS: ATTEND Physician Assistant | DX: M25.372 Other instability, left ankle (principal); S93.402A Sprain of unspecified ligament of left ankle, initial encounter ==

== ENCOUNTER 2022-11-06 09:33 | Emergency (ER) | payer OTHER ==
[~2022-11-06] VITALS: Ht 170.2 cm; Wt 78.2 kg
[2022-11-06 09:33] VITALS: TEMP 98.1
[2022-11-06] MEDS ORDERED: SYNT112T2 (09:53)
[2022-11-06] MEDS ORDERED: estradiol (09:53)
[2022-11-06 10:50] LABS: BASO % 0.7 % (0.0-1.0); EOS % 0.7 % (0.0-3.0); HEMATOCRIT 38.3 % (36.0-47.0); HEMOGLOBIN 12.4 g/dl (12.0-15.5); LYMPH # 1.6 10^3/uL (1.5-5.0); LYMPH % 29.4 % (24.0-44.0); MEAN CORPUSCULAR HEMOGLOBIN 28.6 pg (27.0-33.0); MEAN CORPUSCULAR HGB CONC 32.4 g/dl (32.0-36.5); MEAN CORPUSCULAR VOLUME 88.2 fl (80.0-96.0); MONO # 0.4 10^3/uL (0.0-0.8); MONO % 7.6 % (2.0-8.0); NEUTROPHILS # 3.3 10^3/uL (1.5-8.5); PLATELET COUNT, AUTOMATED 240 10^3/uL (150-450); RED BLOOD COUNT 4.34 10^6/uL (4.00-5.40); WHITE BLOOD COUNT 5.4 10^3/uL (4.0-10.0)
[2022-11-06 11:13] LABS: LIPASE 25 U/L (12-53)
[2022-11-06 11:14] LABS: ALKALINE PHOSPHATASE 75 U/L (46-116); ALT/SGPT 25 U/L (7.0-40); AMYLASE 41 U/L (30-118); AST/SGOT 13 U/L (<34); BILIRUBIN,DIRECT 0.1 MG/DL (<0.4); BILIRUBIN,TOTAL 0.3 MG/DL (0.3-1.2); BLOOD UREA NITROGEN 10 MG/DL (9-23); CALCIUM LEVEL 9.1 MG/DL (8.5-10.1); CARBON DIOXIDE LEVEL 29 MMOL/L (20-31); CHLORIDE LEVEL 104 MMOL/L (98-107); CREATININE FOR GFR 0.59 MG/DL (0.55-1.30); GLOMERULAR FILTRATION RATE > 60.0 (>58); GLUCOSE, FASTING 90 MG/DL (60-100); SODIUM LEVEL 140 MMOL/L (136-145); TOTAL PROTEIN 7.1 G/DL (5.7-8.2)
[2022-11-06] MEDS ORDERED: ISOVUE-370 76% 100ML VIAL As Ordered ONE (11:49)
[2022-11-06 12:54] VITALS: BP 122/77; O2SAT 100
== END 2022-11-06 12:59 | disposition home or self-care (01) ==
LOC: M ED 09:33
DX: D18.03 Hemangioma of intra-abdominal structures (principal); K42.9 Umbilical hernia without obstruction or gangrene; I10 Essential (primary) hypertension; G40.909 Epilepsy, unspecified, not intractable, without status epilepticus; M32.9 Systemic lupus erythematosus, unspecified; Z86.19 Personal history of other infectious and parasitic diseases; Z87.891 Personal history of nicotine dependence; Z88.2 Allergy status to sulfonamides; Z88.5 Allergy status to narcotic agent; Z88.6 Allergy status to analgesic agent; Z91.040 Latex allergy status; Z91.048 Other nonmedicinal substance allergy status; Z79.899 Other long term (current) drug therapy
CPT/HCPCS: 36415; 74177; 80048; 80076; 81001; 82150; 83605; 83690; 85025; 99284; Q9967

== ENCOUNTER → 2023-08-11 | Outpatient (CLI) | payer OTHER, SELFPAY ==
[~2023-08-11] MED LIST changes: +DOXY-323 PO; -DOXY-443 PO; +LORA-1041 PO; -LORA-674 PO; +SYNT112T2; +estradiol
== END ==
LOC: M PLALAB 10:06 → M LAB 10:06
PROVIDERS: ATTEND Family Medicine
DX: Z11.1 Encounter for screening for respiratory tuberculosis (principal)

== ENCOUNTER 2023-08-13 18:33 | Emergency (ER) | payer SELFPAY ==
[~2023-08-13] VITALS: Ht 170.2 cm; Wt 73.2 kg
[2023-08-13 22:04] LABS: BASO % 0.6 % (0.0-1.0); EOS % 0.8 % (0.0-3.0); HEMOGLOBIN 12.8 g/dl (12.0-15.5); LYMPH # 2.1 10^3/uL (1.5-5.0); LYMPH % 40.6 % (24.0-44.0); MEAN CORPUSCULAR HEMOGLOBIN 30.4 pg (27.0-33.0); MEAN CORPUSCULAR HGB CONC 33.7 g/dl (32.0-36.5); MEAN CORPUSCULAR VOLUME 90.3 fl (80.0-96.0); MONO # 0.4 10^3/uL (0.0-0.8); NEUTROPHILS # 2.6 10^3/uL (1.5-8.5); NEUTROPHILS % 49.6 % (36.0-66.0); PLATELET COUNT, AUTOMATED 236 10^3/uL (150-450); RED BLOOD COUNT 4.21 10^6/uL (4.00-5.40); WHITE BLOOD COUNT 5.3 10^3/uL (4.0-10.0)
[2023-08-13 22:36] LABS: LIPASE 21 U/L (12-53)
[2023-08-13 22:38] LABS: ALKALINE PHOSPHATASE 70 U/L (46-116); ALT/SGPT 19 U/L (7.0-40); AST/SGOT 10 U/L (<34); BILIRUBIN,DIRECT 0.1 MG/DL (<0.4); BILIRUBIN,TOTAL 0.4 MG/DL (0.3-1.2); BLOOD UREA NITROGEN 11 MG/DL (9-23); CALCIUM LEVEL 9.1 MG/DL (8.5-10.1); CARBON DIOXIDE LEVEL 31 MMOL/L (20-31); CHLORIDE LEVEL 106 MMOL/L (98-107); CREATININE FOR GFR 0.69 MG/DL (0.55-1.30); GLOMERULAR FILTRATION RATE > 60.0 (>58); GLUCOSE, FASTING 87 MG/DL (60-100); POTASSIUM SERUM 4.1 MMOL/L (3.5-5.1); SODIUM LEVEL 141 MMOL/L (136-145); TOTAL PROTEIN 7.1 G/DL (5.7-8.2)
[2023-08-14 03:52] VITALS: BP 123/59; TEMP 97.6; O2SAT 100
== END 2023-08-14 05:49 | disposition left against medical advice (07) ==
LOC: M ED 18:33
DX: Z53.21 Procedure and treatment not carried out due to patient leaving prior to being seen by health care provider (principal)

== ENCOUNTER 2023-09-24 11:23 | Emergency (ER) | payer OTHER, SELFPAY ==
[~2023-09-24] VITALS: Ht 170.2 cm; Wt 72.7 kg
[2023-09-24] MEDS ORDERED: [UNRECOGNIZED DRUG - CODE] (11:50)
[2023-09-24] MEDS: ONDANSETRON 4MG ORAL DISINTEGRATING TAB PO ONE (14:39)
[2023-09-24] MEDS ORDERED: ONDA-282 PO (15:45)
[2023-09-24 16:18] VITALS: BP 137/82; TEMP 98.5; O2SAT 98
== END 2023-09-24 16:19 | disposition home or self-care (01) ==
LOC: M ED 11:23
DX: S06.0X0A Concussion without loss of consciousness, initial encounter (principal); S00.03XA Contusion of scalp, initial encounter; S16.1XXA Strain of muscle, fascia and tendon at neck level, initial encounter; W22.09XA Striking against other stationary object, initial encounter; F10.10 Alcohol abuse, uncomplicated; Z88.2 Allergy status to sulfonamides; Z88.6 Allergy status to analgesic agent; Z88.5 Allergy status to narcotic agent; Z91.040 Latex allergy status; Z91.018 Allergy to other foods; Z79.899 Other long term (current) drug therapy; Z79.83 Long term (current) use of bisphosphonates; Y92.9 Unspecified place or not applicable; Y93.89 Activity, other specified; Y99.0 Civilian activity done for income or pay

== ENCOUNTER 2023-09-28 15:47 | Emergency (ER) | payer OTHER ==
[~2023-09-28] VITALS: Ht 170.2 cm; Wt 73.1 kg
[~2023-09-28 15:47] MED LIST changes: +ONDA-282 PO; +[UNRECOGNIZED DRUG - CODE]
[2023-09-28] MEDS: ACETAMINOPHEN 500 MG TAB PO ONE (19:38)
[2023-09-28 20:05] LABS: BASO % 0.6 % (0.0-1.0); EOS % 0.6 % (0.0-3.0); HEMATOCRIT 39.2 % (36.0-47.0); HEMOGLOBIN 13.2 g/dl (12.0-15.5); LYMPH # 1.9 10^3/uL (1.5-5.0); LYMPH % 30.5 % (24.0-44.0); MEAN CORPUSCULAR HGB CONC 33.7 g/dl (32.0-36.5); MEAN CORPUSCULAR VOLUME 89.1 fl (80.0-96.0); MONO # 0.4 10^3/uL (0.0-0.8); MONO % 6.6 % (2.0-8.0); NEUTROPHILS # 3.8 10^3/uL (1.5-8.5); NEUTROPHILS % 61.5 % (36.0-66.0); PLATELET COUNT, AUTOMATED 256 10^3/uL (150-450); WHITE BLOOD COUNT 6.2 10^3/uL (4.0-10.0)
[2023-09-28] MEDS ORDERED: ISOVUE-370 76% 100ML VIAL As Ordered ONE (20:10)
[2023-09-28 20:17] LABS: INR 1.02; PARTIAL THROMBOPLASTIN TIME 26.4 SECONDS (24.8-34.2); PROTHROMBIN TIME 13.1 SECONDS (12.5-14.5)
[2023-09-28 20:21] LABS: LIPASE 25 U/L (12-53)
[2023-09-28 20:23] LABS: ALBUMIN 4.1 G/DL (3.2-5.2); ALKALINE PHOSPHATASE 85 U/L (46-116); ALT/SGPT 17 U/L (7.0-40); AST/SGOT 14 U/L (<34); BILIRUBIN,DIRECT < 0.1 MG/DL (<0.4); BILIRUBIN,TOTAL 0.3 MG/DL (0.3-1.2); TOTAL PROTEIN 7.4 G/DL (5.7-8.2)
[2023-09-28 22:20] VITALS: BP 103/75; TEMP 98.7; O2SAT 98
== END 2023-09-28 22:25 | disposition home or self-care (01) ==
LOC: M ED 15:47
DX: S20.212A Contusion of left front wall of thorax, initial encounter (principal); W19.XXXA Unspecified fall, initial encounter; Y92.9 Unspecified place or not applicable; Y93.9 Activity, unspecified; Y99.9 Unspecified external cause status; R91.1 Solitary pulmonary nodule; M43.16 Spondylolisthesis, lumbar region; D68.2 Hereditary deficiency of other clotting factors; I10 Essential (primary) hypertension; J45.909 Unspecified asthma, uncomplicated; Z87.19 Personal history of other diseases of the digestive system; M32.9 Systemic lupus erythematosus, unspecified; Z86.19 Personal history of other infectious and parasitic diseases; E06.3 Autoimmune thyroiditis; Z85.850 Personal history of malignant neoplasm of thyroid; Z79.890 Hormone replacement therapy; Z79.899 Other long term (current) drug therapy; Z88.2 Allergy status to sulfonamides; Z88.5 Allergy status to narcotic agent; Z88.8 Allergy status to other drugs, medicaments and biological substances; Z91.040 Latex allergy status; Z91.89 Other specified personal risk factors, not elsewhere classified; Z91.018 Allergy to other foods
CPT/HCPCS: 71260; 74177; 80047; 80076; 83690; 85025; 85610; 85730; 99284; Q9967

== ENCOUNTER → 2023-11-04 | Outpatient (CLI) | payer OTHER | LOC: M WHC 13:31 | PROVIDERS: ATTEND Nurse Practitioner Family | DX: Z12.31 Encounter for screening mammogram for malignant neoplasm of breast (principal) ==

== ENCOUNTER 2023-12-21 15:08 | Emergency (ER) | payer OTHER ==
[~2023-12-21] VITALS: Ht 167.6 cm; Wt 70.9 kg
[~2023-12-21 15:08] MED LIST changes: -DOXY-323 PO; +DOXY-441 PO; +GABA-1490 PO; -GABA600T4 PO
[2023-12-21] MEDS ORDERED: ACET-683 PO (15:21)
[2023-12-21] MEDS: ACETAMINOPHEN 325 MG TAB PO ONE (17:53)
[2023-12-21 18:44] VITALS: BP 130/74; TEMP 97.3; O2SAT 98
[2023-12-21] MEDS ORDERED: METH-1164 PO (18:48)
== END 2023-12-21 19:00 | disposition home or self-care (01) ==
LOC: M ED 15:08
DX: M54.50 Low back pain, unspecified (principal); V49.40XA Driver injured in collision with unspecified motor vehicles in traffic accident, initial encounter; M43.06 Spondylolysis, lumbar region; M32.9 Systemic lupus erythematosus, unspecified; D68.2 Hereditary deficiency of other clotting factors; Z88.2 Allergy status to sulfonamides; Z88.5 Allergy status to narcotic agent; Z88.6 Allergy status to analgesic agent; Z91.040 Latex allergy status; Z91.018 Allergy to other foods; Z79.899 Other long term (current) drug therapy; Y92.410 Unspecified street and highway as the place of occurrence of the external cause; Y93.89 Activity, other specified; Y99.9 Unspecified external cause status

== ENCOUNTER → 2023-12-26 | Outpatient (CLI) | payer OTHER ==
[~2023-12-26] MED LIST changes: +ACET-683 PO; +METH-1164 PO
== END ==
LOC: M RAD 12:48
PROVIDERS: ATTEND Physician Assistant
DX: M47.896 Other spondylosis, lumbar region (principal); M51.360 Other intervertebral disc degeneration, lumbar region with discogenic back pain only

== ENCOUNTER → 2023-12-29 | Outpatient (CLI) | payer OTHER ==
[2023-12-29 14:15] LABS: BASO # 0.1 10^3/uL (0.0-0.2); EOS # 0.1 10^3/uL (0.0-0.5); EOS % 1.5 % (0.0-3.0); HEMATOCRIT 39.5 % (36.0-47.0); HEMOGLOBIN 12.9 g/dl (12.0-15.5); LYMPH # 1.9 10^3/uL (1.5-5.0); LYMPH % 35.4 % (24.0-44.0); MEAN CORPUSCULAR HEMOGLOBIN 29.4 pg (27.0-33.0); MEAN CORPUSCULAR HGB CONC 32.7 g/dl (32.0-36.5); MONO # 0.4 10^3/uL (0.0-0.8); MONO % 8.4 % (2.0-8.0); NEUTROPHILS # 2.8 10^3/uL (1.5-8.5); NEUTROPHILS % 53.5 % (36.0-66.0); PLATELET COUNT, AUTOMATED 250 10^3/uL (150-450); RED BLOOD COUNT 4.39 10^6/uL (4.00-5.40); WHITE BLOOD COUNT 5.3 10^3/uL (4.0-10.0)
[2023-12-29 15:45] LABS: ALBUMIN 3.9 G/DL (3.2-5.2); ALKALINE PHOSPHATASE 83 U/L (46-116); ALT/SGPT 26 U/L (7.0-40); AST/SGOT 13 U/L (<34); BLOOD UREA NITROGEN 12 MG/DL (9-23); CALCIUM LEVEL 9.7 MG/DL (8.5-10.1); CARBON DIOXIDE LEVEL 30 MMOL/L (20-31); CHLORIDE LEVEL 106 MMOL/L (98-107); CREATININE FOR GFR 0.69 MG/DL (0.55-1.30); FERRITIN 21.6 NG/ML (7.3-270.7); FREE T4 1.17 NG/DL (0.89-1.76); GLOMERULAR FILTRATION RATE > 60.0 (>58); GLUCOSE, FASTING 89 MG/DL (60-100); POTASSIUM SERUM 4.4 MMOL/L (3.5-5.1); SODIUM LEVEL 140 MMOL/L (136-145); THYROID STIMULATING HORMONE 8.573 uIU/ML (0.55-4.78); TOTAL 25(OH) VITAMIN D 35.8 NG/ML (20.0-100.0)
[2023-12-29 16:01] LABS: BILIRUBIN,TOTAL 0.4 MG/DL (0.3-1.2); TOTAL PROTEIN 7.3 G/DL (5.7-8.2)
== END ==
LOC: M PLALAB 09:49
PROVIDERS: ATTEND Family Medicine
DX: E89.0 Postprocedural hypothyroidism (principal)

== ENCOUNTER → 2024-03-29 | Outpatient (CLI) | payer SELFPAY ==
[2024-03-29 10:29] LABS: BASO # 0.1 10^3/uL (0.0-0.2); EOS # 0.1 10^3/uL (0.0-0.5); HEMOGLOBIN 12.7 g/dl (12.0-15.5); LYMPH % 34.6 % (24.0-44.0); MEAN CORPUSCULAR HEMOGLOBIN 28.7 pg (27.0-33.0); MEAN CORPUSCULAR HGB CONC 32.6 g/dl (32.0-36.5); MONO # 0.5 10^3/uL (0.0-0.8); MONO % 8.6 % (2.0-8.0); NEUTROPHILS # 3.2 10^3/uL (1.5-8.5); NEUTROPHILS % 54.3 % (36.0-66.0); PLATELET COUNT, AUTOMATED 240 10^3/uL (150-450); RED BLOOD COUNT 4.43 10^6/uL (4.00-5.40); WHITE BLOOD COUNT 5.9 10^3/uL (4.0-10.0)
[2024-03-29 10:36] LABS: ALBUMIN 3.9 G/DL (3.2-5.2); ALKALINE PHOSPHATASE 75 U/L (35-104); ALT/SGPT 35 U/L (7.0-40); AST/SGOT 23 U/L (<34); BILIRUBIN,TOTAL 0.3 MG/DL (0.3-1.2); BLOOD UREA NITROGEN 14 MG/DL (9-23); CALCIUM LEVEL 9.1 MG/DL (8.5-10.1); CARBON DIOXIDE LEVEL 28 MMOL/L (20-31); CHLORIDE LEVEL 108 MMOL/L (98-107); CREATININE FOR GFR 0.69 MG/DL (0.55-1.30); GLOMERULAR FILTRATION RATE > 60.0 (>58); GLUCOSE, FASTING 86 MG/DL (60-100); SODIUM LEVEL 143 MMOL/L (136-145); TOTAL PROTEIN 7.1 G/DL (5.7-8.2)
[2024-03-29 10:38] LABS: FREE T4 1.04 NG/DL (0.89-1.76)
[2024-03-29 10:40] LABS: TOTAL T3 88.5 NG/DL (60.0-181.0)
[2024-03-30 14:17] LABS: THRYOGLOBULIN ANTIBODIES (ATA) 2 IU/mL (< or = 1); THYROGLOBULIN QUANTITATIVE < 0.1 ng/mL (2.8-40.9)
== END ==
LOC: M PLALAB 08:00
PROVIDERS: ATTEND Family Medicine
DX: E89.0 Postprocedural hypothyroidism (principal); Z85.850 Personal history of malignant neoplasm of thyroid; D69.1 Qualitative platelet defects; E83.110 Hereditary hemochromatosis

== ENCOUNTER → 2024-04-19 | Outpatient (CLI) | payer OTHER, SELFPAY | LOC: M RAD 14:59 | PROVIDERS: ATTEND Family Medicine | DX: Z85.850 Personal history of malignant neoplasm of thyroid (principal) ==

== ENCOUNTER 2024-05-20 08:56 | Emergency (ER) | payer SELFPAY ==
[~2024-05-20] VITALS: Ht 170.2 cm; Wt 76.4 kg
[2024-05-20 09:41] LABS: BASO % 1.4 % (0.0-1.0); EOS # 0.1 10^3/uL (0.0-0.5); EOS % 1.4 % (0.0-3.0); HEMATOCRIT 40.4 % (36.0-47.0); HEMOGLOBIN 13.4 g/dl (12.0-15.5); LYMPH # 1.6 10^3/uL (1.5-5.0); LYMPH % 36.4 % (24.0-44.0); MEAN CORPUSCULAR HEMOGLOBIN 29.1 pg (27.0-33.0); MEAN CORPUSCULAR HGB CONC 33.2 g/dl (32.0-36.5); MEAN CORPUSCULAR VOLUME 87.8 fl (80.0-96.0); MONO # 0.4 10^3/uL (0.0-0.8); MONO % 9.2 % (2.0-8.0); NEUTROPHILS # 2.2 10^3/uL (1.5-8.5); NEUTROPHILS % 51.4 % (36.0-66.0); PLATELET COUNT, AUTOMATED 234 10^3/uL (150-450); WHITE BLOOD COUNT 4.3 10^3/uL (4.0-10.0)
[2024-05-20 09:42] LABS: BASO # 0.1 10^3/uL (0.0-0.2)
[2024-05-20 09:58] VITALS: BP 145/82
[2024-05-20] MEDS: NITROGLYCERIN 0.4MG SUBL TABLET SL PRN (09:58)
[2024-05-20] MEDS: ASPIRIN 81MG CHEW TABLET PO ONE (10:00)
[2024-05-20 10:09] LABS: CK-MB VALUE MASS < 1.0 NG/ML (<3.6)
[2024-05-20 10:11] LABS: BLOOD UREA NITROGEN 9 MG/DL (9-23); CALCIUM LEVEL 9.1 MG/DL (8.5-10.1); CARBON DIOXIDE LEVEL 28 MMOL/L (20-31); CHLORIDE LEVEL 105 MMOL/L (98-107); CREATININE FOR GFR 0.72 MG/DL (0.55-1.30); GLOMERULAR FILTRATION RATE > 60.0 (>58); GLUCOSE, FASTING 82 MG/DL (60-100); POTASSIUM SERUM 3.9 MMOL/L (3.5-5.1); SODIUM LEVEL 144 MMOL/L (136-145)
[2024-05-20 10:29] LABS: CPK CREATINE PHOSPHOKINASE 93 U/L (34-145); MB/CK RELATIVE INDEX 1.07 (< OR =4)
[2024-05-20] MEDS ORDERED: ISOVUE-370 76% 100ML VIAL As Ordered ONE (10:40)
[2024-05-20 11:32] LABS: CK-MB VALUE MASS < 1.0 NG/ML (<3.6)
[2024-05-20 11:33] LABS: CPK CREATINE PHOSPHOKINASE 86 U/L (34-145); MB/CK RELATIVE INDEX 1.16 (< OR =4)
[2024-05-20 13:15] VITALS: BP 117/72
[2024-05-20 13:16] VITALS: TEMP 96.8; O2SAT 100
== END 2024-05-20 13:34 | disposition home or self-care (01) ==
LOC: M ED 08:56
DX: R07.9 Chest pain, unspecified (principal); Z87.891 Personal history of nicotine dependence; Z88.2 Allergy status to sulfonamides; Z88.5 Allergy status to narcotic agent; Z88.6 Allergy status to analgesic agent; Z91.040 Latex allergy status; Z91.018 Allergy to other foods; Z79.899 Other long term (current) drug therapy; Z79.1 Long term (current) use of non-steroidal anti-inflammatories (NSAID)
CPT/HCPCS: 36415; 71045; 71275; 80048; 82550; 82553; 84484; 85025; 93005; 93041; 94760; 99285; Q9967

== ENCOUNTER → 2024-07-14 | Outpatient (CLI) | payer SELFPAY | LOC: M RAD 07:31 | PROVIDERS: ATTEND Family Medicine | DX: M79.672 Pain in left foot (principal) ==

== ENCOUNTER → 2024-10-03 | Outpatient (REF) | payer SELFPAY | LOC: M SFHCPLAZ 11:29 | PROVIDERS: ATTEND Family Medicine | DX: R14.0 Abdominal distension (gaseous) (principal) ==

== ENCOUNTER → 2024-10-06 | Outpatient (CLI) | payer SELFPAY | LOC: M LAB 17:19 | PROVIDERS: ATTEND Family Medicine | DX: R10.12 Left upper quadrant pain (principal) ==

== ENCOUNTER 2024-10-29 18:43 | Emergency (ER) | payer OTHER, SELFPAY ==
[~2024-10-29] VITALS: Ht 170.2 cm; Wt 52.0 kg
[~2024-10-29 18:43] MED LIST changes: -SYNT112T2
[2024-10-29] MEDS: ACETAMINOPHEN 500 MG TAB PO ONE (20:31)
[2024-10-29] MEDS ORDERED: METH-1164 PO (23:13)
[2024-10-29 23:20] VITALS: BP 121/80; TEMP 96.6; O2SAT 98
== END 2024-10-29 23:35 | disposition home or self-care (01) ==
LOC: M ED 18:43
DX: M54.40 Lumbago with sciatica, unspecified side (principal); M25.512 Pain in left shoulder; M54.2 Cervicalgia; V49.49XA Driver injured in collision with other motor vehicles in traffic accident, initial encounter; Z85.850 Personal history of malignant neoplasm of thyroid; M32.9 Systemic lupus erythematosus, unspecified; Z86.718 Personal history of other venous thrombosis and embolism; K21.9 Gastro-esophageal reflux disease without esophagitis; Z90.89 Acquired absence of other organs; Z88.2 Allergy status to sulfonamides; Z91.040 Latex allergy status; Z88.6 Allergy status to analgesic agent; Z91.018 Allergy to other foods; Z88.5 Allergy status to narcotic agent; Z91.048 Other nonmedicinal substance allergy status; Z79.1 Long term (current) use of non-steroidal anti-inflammatories (NSAID); Z79.890 Hormone replacement therapy; Z79.899 Other long term (current) drug therapy

== ENCOUNTER → 2024-11-02 | Outpatient (REF) | payer OTHER, SELFPAY ==
[~2024-11-02] MED LIST changes: +CYCL-707 PO
== END ==
LOC: M SFHCPLAZ 09:39
PROVIDERS: ATTEND Family Medicine
DX: Z53.9 Procedure and treatment not carried out, unspecified reason (principal); R29.810 Facial weakness

== ENCOUNTER → 2024-11-02 | Outpatient (CLI) | payer OTHER | LOC: M PLAIMG 09:51 | DX: H53.9 Unspecified visual disturbance (principal); R42 Dizziness and giddiness; R47.01 Aphasia; V89.2XXS Person injured in unspecified motor-vehicle accident, traffic, sequela ==

== ENCOUNTER 2024-11-04 11:08 | Emergency (ER) | payer OTHER, SELFPAY ==
[~2024-11-04] VITALS: Ht 170.2 cm; Wt 71.9 kg
[~2024-11-04 11:08] MED LIST changes: -CYCL-707 PO
[2024-11-04] MEDS ORDERED: CYCL-707 PO (11:31)
[2024-11-04] MEDS ORDERED: METH-1164 PO (13:17)
[2024-11-04] MEDS ORDERED: HOME MED LIST COMPLETE! XX SCH (13:20)
[2024-11-04 14:45] VITALS: TEMP 97.1
[2024-11-04 15:00] VITALS: BP 102/66; O2SAT 98
== END 2024-11-04 15:51 | disposition home or self-care (01) ==
LOC: M ED 11:08
DX: M51.362 Other intervertebral disc degeneration, lumbar region with discogenic back pain and lower extremity pain (principal); M43.16 Spondylolisthesis, lumbar region; M32.9 Systemic lupus erythematosus, unspecified; Z88.2 Allergy status to sulfonamides; Z88.5 Allergy status to narcotic agent; Z88.6 Allergy status to analgesic agent; Z91.040 Latex allergy status; Z91.018 Allergy to other foods; Z79.1 Long term (current) use of non-steroidal anti-inflammatories (NSAID); Z79.899 Other long term (current) drug therapy

== ENCOUNTER → 2024-11-04 | Outpatient (CLI) | payer OTHER, SELFPAY | LOC: M WHC 08:21 | PROVIDERS: ATTEND Specialist | DX: Z12.31 Encounter for screening mammogram for malignant neoplasm of breast (principal) ==

== ENCOUNTER → 2024-11-25 | Outpatient (CLI) | payer OTHER, SELFPAY ==
[~2024-11-25] MED LIST changes: +CYCL-707 PO
== END ==
LOC: M RAD 06:20
PROVIDERS: ATTEND Nurse Practitioner Adult Health
DX: R14.0 Abdominal distension (gaseous) (principal)
CPT/HCPCS: 78264; A9541

== ENCOUNTER → 2025-01-03 | Outpatient (CLI) | payer OTHER ==
[~2025-01-03] MED LIST changes: +PROHANCE 279.3MG/ML 15ML VIAL ONE
== END ==
LOC: M PLAIMG 13:39
PROVIDERS: ATTEND Physical Medicine & Rehabilitation
DX: M47.892 Other spondylosis, cervical region (principal); M48.02 Spinal stenosis, cervical region
CPT/HCPCS: 72156; A9576

== ENCOUNTER → 2025-01-26 | Outpatient (CLI) | payer OTHER ==
[~2025-01-26] MED LIST changes: -PROHANCE 279.3MG/ML 15ML VIAL ONE
== END ==
LOC: M LAB 13:49
PROVIDERS: ATTEND Physical Medicine & Rehabilitation
DX: M50.30 Other cervical disc degeneration, unspecified cervical region (principal)